=== PATIENT | male | born 2000 | race Caucasian/White ===

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

== ENCOUNTER 2019-03-05 02:48 | Inpatient (IN) | payer OTHER ==
[~2019-03-05] VITALS: Ht 175.3 cm; Wt 69.1 kg
[2019-03-05 03:20] LABS: Hematocrit 53.1 % (37.0-53.0); Hemoglobin 17.9 g/dL (13.5-17.5); Mean Corpuscular HGB 31.6 pg (26.0-34.0); Mean Corpuscular HGB Conc 33.7 g/dL (31.5-36.5); Mean Corpuscular Volume 94 fL (80-100); Mean Platelet Volume 9.5 fL (9.1-12.4); Platelet Count 441 K/mm3 (150-400); RDW Coefficient Variation 12.1 % (11.7-14.2); RDW Standard Deviation 41.9 fL (35.1-46.3); Red Blood Cell Count 5.66 M/mm3 (4.30-5.90); White Blood Cell Count 25.29 K/mm3 (4.00-11.30)
[2019-03-05 03:35] LABS: Calcium, Ionized (POC) 1.26 mmol/L (1.10-1.46); Chloride (POC) 103 mmol/L (98-108); Creatinine (POC) 1.1 mg/dL (0.8-1.3); Glucose (ISTAT POC) 555 mg/dL (70-99); Hemoglobin (POC) 19.4 g/dL (13.5-17.5); Sodium (POC) 129 mmol/L (135-148); Total CO2 (POC) 9 mmol/L (21-32)
[2019-03-05 03:42] LABS: BAND PERCENT MAN 10 % (0-8); BASOPHILS PERCENT MAN 0 % (0-2); EOSINOPHILS PERCENT MAN 0 % (0-6); LYMPHOCYTES ABSOLUTE MAN 1.77 K/mm3 (0.84-5.20); LYMPHOCYTES PERCENT MAN 7 % (21-46); MONOCYTES ABSOLUTE MAN 2.02 K/mm3 (0.16-1.47); MONOCYTES PERCENT MAN 8 % (4-13); MYELOCYTE ABSOLUTE MAN 0.25 K/mm3 (0.00-0.00); MYELOCYTE PERCENT MAN 1 % (0-0); NEUTROPHILS ABSOLUTE MAN 21.24 K/mm3 (1.96-9.15); SEG NEUTROPHILS PERCENT MAN 74 % (41-73); TOTAL CELLS COUNTED 100
[2019-03-05 03:50] LABS: Alanine Aminotransfer (ALT/SGP 40 U/L (12-78); Albumin, Blood 5.2 g/dL (3.4-5.0); Albumin/Globulin Ratio 1.2 (0.8-1.8); Alk Phos 123 U/L (50-136); Anion Gap 25 mmol/L (6-16); Aspartate Aminotrans (AST/SGOT 12 U/L (12-37); Bilirubin, Total 0.7 mg/dL (0.1-1.0); Blood Urea Nitrogen 22 mg/dL (8-24); Bun/Creatinine Ratio 22.2 (12.0-20.0); CO2, Blood 7 mmol/L (21-32); Calcium, Blood 9.4 mg/dL (8.5-10.1); Chloride, Blood 94 mmol/L (98-108); Creatinine, Blood 0.99 mg/dL (0.60-1.20); Globulin, Blood 4.3 g/dL (2.2-4.0); Glomerular Filtration Rate >60 (60-); Glucose, Blood 544 mg/dL (70-99); Potassium, Blood 4.9 mmol/L (3.5-5.5); Sodium, Blood 126 mmol/L (136-145); Total Protein, Blood 9.5 g/dL (6.4-8.2)
[2019-03-05 04:09] LABS: Beta-hydroxybutyrate 108.2 mg/dL (0.2-2.8)
[2019-03-05 05:07] LABS: BASOPHILS ABSOLUTE AUTO 0.08 K/mm3 (0.00-0.23); BASOPHILS PERCENT AUTO 0 % (0-2); EOSINOPHILS ABSOLUTE AUTO 0.01 K/mm3 (0.00-0.68); EOSINOPHILS PERCENT AUTO 0 % (0-6); Hematocrit 46.1 % (37.0-53.0); Hemoglobin 15.5 g/dL (13.5-17.5); IMMATURE GRAN ABSOLUTE AUTO 0.48 K/mm3 (0.00-0.10); IMMATURE GRAN PERCENT AUTO 2 % (0-1); LYMPHOCYTES ABSOLUTE AUTO 1.41 K/mm3 (0.84-5.20); LYMPHOCYTES PERCENT AUTO 6 % (21-46); MONOCYTES ABSOLUTE AUTO 1.23 K/mm3 (0.16-1.47); MONOCYTES PERCENT AUTO 6 % (4-13); Mean Corpuscular HGB Conc 33.6 g/dL (31.5-36.5); Mean Corpuscular Volume 95 fL (80-100); Mean Platelet Volume 9.3 fL (9.1-12.4); NEUTROPHILS PERCENT AUTO 86 % (41-73); Platelet Count 330 K/mm3 (150-400); RDW Standard Deviation 41.6 fL (35.1-46.3); Red Blood Cell Count 4.85 M/mm3 (4.30-5.90); White Blood Cell Count 22.41 K/mm3 (4.00-11.30)
[2019-03-05 05:20] LABS: Source, Urine Clean Catch
[2019-03-05 05:24] LABS: Bilirubin, Urine Neg (Neg); Blood, Urine 2+ (Neg); Glucose Qualitative, Urine 4+ (Neg); Ketones, Urine 4+ (Neg); Leukocyte Esterase, Urine Neg (Neg); Nitrite, Urine Neg (Neg); Protein, Urine 2+ (Neg); Urobilinogen, Urine NORM (Normal)
[2019-03-05 05:33] LABS: Appearance, Urine Clear (Clear); Color, Urine No Color (P-Yellow)
[2019-03-05 05:36] LABS: Bacteria Not Seen /hpf; Squamous Epithelial Cells Few /hpf (Few); White Blood Cells, Urine Not Seen /hpf (0-5)
[2019-03-05] MEDS ORDERED: BASAGLAR K100 UNIT/1 SC (05:39)
[2019-03-05 05:42] LABS: Anion Gap 19 mmol/L (6-16); Blood Urea Nitrogen 19 mg/dL (8-24); Bun/Creatinine Ratio 24.6 (12.0-20.0); CO2, Blood 8 mmol/L (21-32); Calcium, Blood 7.8 mg/dL (8.5-10.1); Chloride, Blood 104 mmol/L (98-108); Creatinine, Blood 0.77 mg/dL (0.60-1.20); Glomerular Filtration Rate >60 (60-); Glucose, Blood 422 mg/dL (70-99); Potassium, Blood 5.4 mmol/L (3.5-5.5); Sodium, Blood 131 mmol/L (136-145)
[2019-03-05] MEDS ORDERED: BASAGLAR (05:52)
--- NOTE | 2019-03-05 06:23 | NUR ---
ADMIT: PT ADMITTED TO ICU 15 VIA GURNEY WITH 2 RN'S AT BEDSIDE AND HEART MONITOR ATTACHED. PT A&OX3. DENIES ANY PAIN. STATES HAVING N/V EARLIER, BUT NOTHING NOW. LS CLEAR T/O WITH BIOX 98% ON RA. HEART SOUNDS S1 AND S2 AUSCULATED WITH MONITOR SHOWING ST WITH HR 105. SKIN, PINK, WARM AND DRY. 20G IV TO LAC WITH NS @ 200CC/HR AND INSULIN @ 5UNITS/HR. BLOOD SUGAR 286, INSULIN TURNED DOWN TO 2 UNITS/HR. ABD R/S WITH BT X4.
--- NOTE | 2019-03-05 08:00 | NUR ---
Recieved report from Ninfa BOONE. Patient is independent in room. He is on Ra and sats 98%. He has bilateral 20ga IV in AC's with both dressings intact and sites WNL's. The right AC is infusing Insulin at 2 Units/hr with CBG's in the low 200's and NS at 200ml/hr x1 bag. He is frustrated he has to saty in hospital and have discussed consequences for not be compliant with monitoring CBG's in daily life . He really wants to eat and have explained why he does not get to eat. Mother at bedside.
[2019-03-05 09:46] LABS: Anion Gap 12 mmol/L (6-16); Blood Urea Nitrogen 12 mg/dL (8-24); Bun/Creatinine Ratio 21.2 (12.0-20.0); CO2, Blood 12 mmol/L (21-32); Calcium, Blood 7.8 mg/dL (8.5-10.1); Chloride, Blood 109 mmol/L (98-108); Creatinine, Blood 0.57 mg/dL (0.60-1.20); Glomerular Filtration Rate >60 (60-); Glucose, Blood 226 mg/dL (70-99); Magnesium, Blood 1.8 mg/dL (1.6-2.4); Phosphorus, Blood 1.9 mg/dL (2.5-4.9); Potassium, Blood 4.2 mmol/L (3.5-5.5); Sodium, Blood 133 mmol/L (136-145)
[2019-03-05 10:14] LABS: Beta-hydroxybutyrate 55.3 mg/dL (0.2-2.8)
--- NOTE | 2019-03-05 10:32 | NUR ---
Patient still c/o appetite and gap is closed and CBG's remain in the low 200's. Have call out to Dr Ascencio for new orders.
--- NOTE | 2019-03-05 11:57 | NUR ---
Patient has been sleeping and states very tired. CBG 196 and they remain low. Started D5 1/2 NS at 125ml/hr and started K Phos. and 25Meq Bicarb and wasted other half. Labs re-drawn at 1300 for recheck. VSS
[2019-03-05 13:52] LABS: Anion Gap 13 mmol/L (6-16); Blood Urea Nitrogen 9 mg/dL (8-24); Bun/Creatinine Ratio 19.4 (12.0-20.0); CO2, Blood 17 mmol/L (21-32); Calcium, Blood 8.3 mg/dL (8.5-10.1); Chloride, Blood 105 mmol/L (98-108); Creatinine, Blood 0.47 mg/dL (0.60-1.20); Glomerular Filtration Rate >60 (60-); Glucose, Blood 233 mg/dL (70-99); Potassium, Blood 3.6 mmol/L (3.5-5.5); Sodium, Blood 135 mmol/L (136-145)
--- NOTE | 2019-03-05 14:37 | NUR ---
Patient sitting up in bed playing Holographic Projection for [employer] games with friend, no significant changes. Awaiting for patient to transition back to home insulin.
[2019-03-05] MEDS ORDERED: Humalog100 UNIT/3 SC (14:44)
--- NOTE | 2019-03-05 17:30 | NUR ---
Patient up to shower and independent in room. He is Med no tele and is awaiting med room. He has started Lantus with SS coverage for AC/HS. Most likely going home in am. Have consistently educated him throughout the day on better management of his Diabetes, and feel he will do better. He see a diabetic specialist, but forhets sometiimes the importance of monitoring until he feels bad. VSS. He has NS at 125ml/hr and RA and sats upper 90%'s.
--- NOTE | 2019-03-05 20:00 | NUR ---
ASSUMED CARE OF PT AT 1915. REPORT RECEIVED. PT PRESENTS IN BED. ALERT AND ORIENTED. PLEASANT AND COOPERATIVE WITH CARE AND ASSESSMENT. PT DENIES COMPLAINTS AT THIS TIME OTHER THAN BEING BORED BEING IN THE HOSPITAL. WILL REVIEW CHART AND PLAN OF CARE FOR THIS PT.
--- NOTE | 2019-03-05 21:23 | NUR ---
DIABETIC EDUCATION DONE WITH THIS PT. ALLOWED PT TO ASK QUESTIONS. 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 PT'S FRIENDS COME TO ROOM FOR VISIT AND HAVE LEFT. HAVE COVERED BLOOD GLUCOSE OF 162 THIS EVENING. SUGGESTED TO PT THAT IF HE FEELS HIS GLUCOSE IS OFF THIS NIGHT THAT HE CAN REQUEST TO HAVE HIS BLOOD SUGAR CHECKED AT ANY TIME. WILL CONTINUE TO MONITOR PT.
--- NOTE | 2019-03-06 03:12 | NUR ---
PT HAS BEEN RESTING IN ROOM. HAS FEMALE GUEST THAT IS SPENDING THE NIGHT WITH PT IN ROOM. PT HAS NO COMPLAINTS AT THIS TIME. INDEPENDENT IN ROOM. VSS. WILL CONTINUE TO MONITOR PT.
[2019-03-06 03:29] LABS: BASOPHILS ABSOLUTE AUTO 0.01 K/mm3 (0.00-0.23); BASOPHILS PERCENT AUTO 0 % (0-2); EOSINOPHILS ABSOLUTE AUTO 0.03 K/mm3 (0.00-0.68); EOSINOPHILS PERCENT AUTO 0 % (0-6); Hematocrit 38.2 % (37.0-53.0); IMMATURE GRAN ABSOLUTE AUTO 0.04 K/mm3 (0.00-0.10); IMMATURE GRAN PERCENT AUTO 1 % (0-1); LYMPHOCYTES ABSOLUTE AUTO 2.46 K/mm3 (0.84-5.20); LYMPHOCYTES PERCENT AUTO 30 % (21-46); MONOCYTES ABSOLUTE AUTO 0.85 K/mm3 (0.16-1.47); MONOCYTES PERCENT AUTO 10 % (4-13); Mean Corpuscular HGB 32.3 pg (26.0-34.0); Mean Corpuscular HGB Conc 36.6 g/dL (31.5-36.5); Mean Platelet Volume 9.2 fL (9.1-12.4); NEUTROPHILS ABSOLUTE AUTO 4.81 K/mm3 (1.96-9.15); NEUTROPHILS PERCENT AUTO 59 % (41-73); Platelet Count 275 K/mm3 (150-400); RDW Coefficient Variation 12.2 % (11.7-14.2); RDW Standard Deviation 39.6 fL (35.1-46.3); Red Blood Cell Count 4.33 M/mm3 (4.30-5.90)
[2019-03-06 03:30] LABS: Mean Corpuscular Volume 88 fL (80-100)
[2019-03-06 03:52] LABS: Albumin, Blood 3.3 g/dL (3.4-5.0); Anion Gap 10 mmol/L (6-16); Blood Urea Nitrogen 10 mg/dL (8-24); Bun/Creatinine Ratio 20.5 (12.0-20.0); CO2, Blood 19 mmol/L (21-32); Calcium, Blood 8.1 mg/dL (8.5-10.1); Chloride, Blood 109 mmol/L (98-108); Creatinine, Blood 0.49 mg/dL (0.60-1.20); Glomerular Filtration Rate >60 (60-); Glucose, Blood 243 mg/dL (70-99); Phosphorus, Blood 1.3 mg/dL (2.5-4.9); Potassium, Blood 3.2 mmol/L (3.5-5.5); Sodium, Blood 138 mmol/L (136-145)
--- NOTE | 2019-03-06 06:38 | NUR ---
PT HAS BEEN ABLE TO REST SOME THIS NIGHT. HIS FEMALE GUEST LEFT DURING NIGHT, AND PT WAS ABLE TO SLEEP. PT VOIDS Q.S. DENIES PAIN OR NAUSEA. CALL MADE TO DR GRIFFIN CONCERNING PT'S PHOS AND POTASSIUM LEVELS BEING LOW. ORDER RECEIVED. DISCUSSED WITH PT THAT HE IS RECEIVING ELECTROLYTE REPLACEMENT. PT VOICES UNDERSTANDING. WILL CONTINUE TO MONITOR PT, AND WILL REPORT OFF TO ONCOMING RN.
--- NOTE | 2019-03-06 07:40 | NUR ---
ASSUMED CARE: PT RESTING IN BED AT THIS TIME. POTASSIUM IV RUNNING AT THIS TIME. NO ACUTE NEEDS OR CONCERNS.
[2019-03-06] MEDS ORDERED: K-Phos Origina500 MG PO (10:30)
--- NOTE | 2019-03-06 11:17 | NUR ---
PT'S IV'S DC'D WNL. INFORMATION GIVEN TO PT ABOUT DISCHARGE INSTRUCTIONS AND MEDICATIONS. INSTRUCTED PT TO CALL PCP FOR APPOINTMENT AND TO DISCUSS CONSULT FOR DR GARRIDO WITH PCP DUE TO DR GARRIDO'S OFFICE NOT TAKING CONSULTS FROM HOSPITAL. DENIED FURTHER QUESTIONS OR CONCERNS. AMBULATORY UPON DISCHARGE
== END 2019-03-06 11:08 | disposition home or self-care (01) | DRG 638 ==
LOC: ER 02:48 → ERHOLD 04:14 → ICUW 05:28
PROVIDERS: Emergency Medicine; Internal Medicine; ADMIT Hospitalist
DX: E10.10 Type 1 diabetes mellitus with ketoacidosis without coma (principal); E87.1 Hypo-osmolality and hyponatremia; E86.0 Dehydration; E83.39 Other disorders of phosphorus metabolism
CPT/HCPCS: 36415; 80047; 80048; 80053; 80069; 81001; 82010; 82947; 83690; 83735; 84100; 85014; 85025; 96360; 96361; 99285-25; C9113; J1815; J7030; J7042; J7060

== ENCOUNTER 2019-05-13 07:36 | Inpatient (IN) | payer OTHER ==
[~2019-05-13] VITALS: Ht 175.3 cm; Wt 63.3 kg
[~2019-05-13 07:36] MED LIST: BASAGLAR; BASAGLAR K100 UNIT/1 SC; Humalog100 UNIT/3 SC; K-Phos Origina500 MG PO
[2019-05-13] MEDS ORDERED: BASAGLAR K100 UNIT/2 SC (08:00)
[2019-05-13 08:19] LABS: Base Excess Venous -26.2 mmol/L; Bicarbonate Venous 8.4 mmol/L (24.0-30.0); PCO2 Venous 21.8 mmHg (38-42); PO2 Venous 59.2 mmHg (38-42); pH Blood Venous 6.99 (7.34-7.37)
[2019-05-13 08:24] LABS: BASOPHILS PERCENT AUTO 1 % (0-2); EOSINOPHILS ABSOLUTE AUTO 0.03 K/mm3 (0.00-0.68); EOSINOPHILS PERCENT AUTO 0 % (0-6); Hematocrit 48.5 % (37.0-53.0); Hemoglobin 16.6 g/dL (13.5-17.5); IMMATURE GRAN ABSOLUTE AUTO 0.33 K/mm3 (0.00-0.10); IMMATURE GRAN PERCENT AUTO 3 % (0-1); LYMPHOCYTES ABSOLUTE AUTO 2.03 K/mm3 (0.84-5.20); LYMPHOCYTES PERCENT AUTO 19 % (21-46); MONOCYTES ABSOLUTE AUTO 0.91 K/mm3 (0.16-1.47); MONOCYTES PERCENT AUTO 9 % (4-13); Mean Corpuscular HGB 32.7 pg (26.0-34.0); Mean Corpuscular HGB Conc 34.2 g/dL (31.5-36.5); Mean Corpuscular Volume 96 fL (80-100); NEUTROPHILS PERCENT AUTO 68 % (41-73); Platelet Count 346 K/mm3 (150-400); RDW Coefficient Variation 13.3 % (11.7-14.2); RDW Standard Deviation 46.9 fL (35.1-46.3); Red Blood Cell Count 5.08 M/mm3 (4.30-5.90)
[2019-05-13 08:52] LABS: Alanine Aminotransfer (ALT/SGP 21 U/L (12-78); Albumin, Blood 4.2 g/dL (3.4-5.0); Albumin/Globulin Ratio 1.2 (0.8-1.8); Alk Phos 104 U/L (50-136); Aspartate Aminotrans (AST/SGOT 12 U/L (12-37); Bilirubin, Total 0.5 mg/dL (0.1-1.0); Blood Urea Nitrogen 8 mg/dL (8-24); Bun/Creatinine Ratio 11.3 (12.0-20.0); Calcium, Blood 8.1 mg/dL (8.5-10.1); Chloride, Blood 104 mmol/L (98-108); Creatinine, Blood 0.71 mg/dL (0.60-1.20); Globulin, Blood 3.6 g/dL (2.2-4.0); Glomerular Filtration Rate >60 (60-); Glucose, Blood 313 mg/dL (70-99); Potassium, Blood 3.4 mmol/L (3.5-5.5); Sodium, Blood 135 mmol/L (136-145); Total Protein, Blood 7.8 g/dL (6.4-8.2)
[2019-05-13 08:53] LABS: Anion Gap 24 mmol/L (6-16); CO2, Blood 7 mmol/L (21-32)
[2019-05-13 09:01] LABS: Beta-hydroxybutyrate 99.4 mg/dL (0.2-2.8)
[2019-05-13 09:17] LABS: Source, Urine Clean Catch
[2019-05-13 09:25] LABS: Bilirubin, Urine Neg (Neg); Blood, Urine 2+ (Neg); Glucose Qualitative, Urine 4+ (Neg); Ketones, Urine 4+ (Neg); Leukocyte Esterase, Urine 3+ (Neg); Nitrite, Urine Neg (Neg); Protein, Urine 3+ (Neg); Specific Gravity, Urine 1.025 (1.003-1.022); Urobilinogen, Urine NORM (Normal)
[2019-05-13 09:30] LABS: Appearance, Urine Cloudy (Clear); Color, Urine Yellow (P-Yellow)
[2019-05-13 09:32] LABS: White Blood Cells, Urine 25-50 /hpf (0-5)
[2019-05-13 09:33] LABS: Squamous Epithelial Cells Mod /hpf (Few)
[2019-05-13 09:34] LABS: Bacteria Many /hpf
[2019-05-13 09:36] LABS: Yeast/Fungi Urine Mod /hpf
[2019-05-13 09:40] LABS: Magnesium, Blood 1.8 mg/dL (1.6-2.4); Phosphorus, Blood 2.2 mg/dL (2.5-4.9)
[2019-05-13 09:49] LABS: Osmolality, Serum 309 mos/KG (275-300)
[2019-05-13 12:24] LABS: Blood Urea Nitrogen 7 mg/dL (8-24); Bun/Creatinine Ratio 12.5 (12.0-20.0); Calcium, Blood 7.8 mg/dL (8.5-10.1); Chloride, Blood 107 mmol/L (98-108); Creatinine, Blood 0.56 mg/dL (0.60-1.20); Glomerular Filtration Rate >60 (60-); Glucose, Blood 292 mg/dL (70-99); Potassium, Blood 3.9 mmol/L (3.5-5.5); Sodium, Blood 136 mmol/L (136-145)
[2019-05-13 12:25] LABS: Anion Gap 22 mmol/L (6-16); CO2, Blood 7 mmol/L (21-32)
--- NOTE | 2019-05-13 14:00 | NUR ---
UPDATE PT CB; PLACED CALL TO BREE PRECIADO. PT IS NOW ON CLEAR LIQUIDS, RECEIVING D5-1/2NS; AND THE INSULIN DOSAGE CHANGED TO 0.1UNITS/KG/HR. PT IS ALERT AND ORIENTED X 4, DENIES PAIN AND DISCOMFORT. PT IS OCCASSIONALLY SOB WITH EXERTION. HE IS VOIDING ADEQUATELY, AND INDEPENDENTLY.
[2019-05-13 16:13] LABS: Anion Gap 20 mmol/L (6-16); Blood Urea Nitrogen 6 mg/dL (8-24); Bun/Creatinine Ratio 9.7 (12.0-20.0); CO2, Blood 8 mmol/L (21-32); Calcium, Blood 8.3 mg/dL (8.5-10.1); Chloride, Blood 109 mmol/L (98-108); Creatinine, Blood 0.62 mg/dL (0.60-1.20); Glomerular Filtration Rate >60 (60-); Glucose, Blood 215 mg/dL (70-99); Potassium, Blood 3.5 mmol/L (3.5-5.5); Sodium, Blood 137 mmol/L (136-145)
[2019-05-13 18:42] LABS: U Amphetamine Screen Not Detected; U Barbituate Screen Not Detected; U Benzodiazapine Screen Not Detected; U Buprenorphine Screen Not Detected; U Cannabinoids Screen DETECTED; U Cocaine Screen Not Detected; U Methadone Screen Not Detected; U Methamphetamine Screen Not Detected; U Opiates Screen Not Detected; U Oxycodone Screen Not Detected; U Phencyclidine Screen Not Detected; U Propoxyphene Screen Not Detected
--- NOTE | 2019-05-13 19:28 | NUR ---
SHIFT SUMMARY PT IS ALERT AND ORIENTED X 4, AND HAS DENIED PAIN/DISCOMFORT ALL DAY UNTILL RECENTLY HE COMPLAINED OF HEARTBURN THAT WAS RELIEVED AFTER MAALOX. HE HAS HAD NO MAJOR EVENTS ALL DAY, HIS LABS ARE TRENDING IN THE RIGHT DIRECTIONS (CO2 IS TRENDING VERY SLOWLY (7->7->8). HE HAS D5-1/2NS INFUSING AT 150 ML/HR, AND INSULIN AT 8 UNITS/KG/HR. HE IS IN SINUS TACH, HR 95-110. BP HAS BEEN STABLE. HE IS SAT'ING HIGH 90'S ON ROOM AIR, AND ONLY COMPLAINS OF SOB WITH EXERTION (LIKE STANDING UP TO URINATE). HE IS VOIDING ADEQUATELY. HE HAS A YEAST INFECTION IN THE FORESKIN OF HIS PENIS. NO MAJOR SKIN ISSUES. NO BM TODAY. PT STATES FEELING BETTER (LESS SOB, HEARTBURN, NAUSEA) SINCE COMING TO ICU. BED IS LOW AND LOCKED. CALL LIGHT WITHIN REACH.
--- NOTE | 2019-05-13 21:00 | NUR ---
PT WATCHING TV W GIRLFRIEND, GENERALLY DENIES DISCOMFORT, BUT HAS ANXIETY W BEING HOSPITALIZED AND "ALL THE STUFF". INSULIN GTT WAS INCREASED TO 9UNITS PER HOUR & HAS D5 1/2NS AT 150/HR. DENIES NAUSEA AND STATES HE IS STARVING. AWAIT LAB RESULTS.
[2019-05-13 21:03] LABS: Anion Gap 13 mmol/L (6-16); Blood Urea Nitrogen 6 mg/dL (8-24); Bun/Creatinine Ratio 12.6 (12.0-20.0); CO2, Blood 15 mmol/L (21-32); Calcium, Blood 8.6 mg/dL (8.5-10.1); Chloride, Blood 108 mmol/L (98-108); Creatinine, Blood 0.48 mg/dL (0.60-1.20); Glomerular Filtration Rate >60 (60-); Glucose, Blood 203 mg/dL (70-99); Potassium, Blood 2.9 mmol/L (3.5-5.5); Sodium, Blood 136 mmol/L (136-145)
--- NOTE | 2019-05-13 22:15 | NUR ---
ORDERS REC'D FOR KCL- PO & IV. PT HAS TOLERATED YOGURT X2 & TURKEY SANDWICH WO NAUSEA. CONT ON INSULIN GTT AT 9 UNITS/HR. LANTUS 10 UNITS GIVEN. WILL CONT TO MONITOR. PT GIRLFRIEND AT BEDSIDE.
--- NOTE | 2019-05-14 | NUR ---
PT TOOK PO POTASSIUM RELUCTANTLY, AND TOLERATING IV POTASSIUM RUNNING CONCURRENT W DEXTROSE MAINT IV. WILL CONT INSULIN GTT FOR ANOTHER HOUR & RECHECK. PT AGAIN ATE SANDWICH & CHICKEN BROTH PER HIS REQUEST.
[2019-05-14 02:10] LABS: Hematocrit 43.9 % (37.0-53.0); Hemoglobin 15.6 g/dL (13.5-17.5); Mean Corpuscular HGB 32.6 pg (26.0-34.0); Mean Corpuscular HGB Conc 35.5 g/dL (31.5-36.5); Mean Corpuscular Volume 92 fL (80-100); Mean Platelet Volume 8.8 fL (9.1-12.4); Platelet Count 272 K/mm3 (150-400); RDW Coefficient Variation 13.1 % (11.7-14.2); RDW Standard Deviation 44.3 fL (35.1-46.3); Red Blood Cell Count 4.79 M/mm3 (4.30-5.90); White Blood Cell Count 8.27 K/mm3 (4.00-11.30)
[2019-05-14 02:22] LABS: Anion Gap 10 mmol/L (6-16); Blood Urea Nitrogen 7 mg/dL (8-24); Bun/Creatinine Ratio 11.4 (12.0-20.0); CO2, Blood 20 mmol/L (21-32); Calcium, Blood 8.9 mg/dL (8.5-10.1); Chloride, Blood 110 mmol/L (98-108); Creatinine, Blood 0.62 mg/dL (0.60-1.20); Glomerular Filtration Rate >60 (60-); Glucose, Blood 85 mg/dL (70-99); Potassium, Blood 3.3 mmol/L (3.5-5.5); Sodium, Blood 140 mmol/L (136-145)
--- NOTE | 2019-05-14 03:30 | NUR ---
INSULIN HAS BEEN OFF SINCE 139. MAINT IV CHANGED TO NS. PT SLEEPING AT THIS TIME. VSS. HAS VOIDED 1000 CC SL CONC URINE. PT APPEARS IMPROVED, MORE ALERT, LESS FLUSHED, GENERALLY SEEMS TO FEEL BETTER. WILL CONT TO MONITOR.
--- NOTE | 2019-05-14 06:30 | NUR ---
PT SLEEPING AT THIS TIME. NEXT LAB DRAW SCHED AT 0800. WILL REPORT TO DAYSHIFT.
--- NOTE | 2019-05-14 08:38 | NUR ---
PT AWAKE IN BED, STATES HE FEELS MUCH BETTER THAN YESTERDAY. DENIES C/O PAIN, DENIES ABD PAIN, NAUSEA. PT ATE EARLY THIS AM AND TOLERATED WELL. NS AT 75CC/HR. DIABETIC EDUCATION STARTED. PT SOMEWHAT FLUSHED; TEMP 97.6. PT COVERED WITH SLIDING SCALE FOR BS 256. PT STATES HE WOULD LIKE TO GO HOME TODAY.
[2019-05-14 08:40] LABS: Anion Gap 14 mmol/L (6-16); Blood Urea Nitrogen 7 mg/dL (8-24); Bun/Creatinine Ratio 11.4 (12.0-20.0); CO2, Blood 17 mmol/L (21-32); Calcium, Blood 8.5 mg/dL (8.5-10.1); Chloride, Blood 106 mmol/L (98-108); Creatinine, Blood 0.61 mg/dL (0.60-1.20); Glomerular Filtration Rate >60 (60-); Glucose, Blood 256 mg/dL (70-99); Potassium, Blood 3.7 mmol/L (3.5-5.5); Sodium, Blood 137 mmol/L (136-145)
--- NOTE | 2019-05-14 10:23 | NUR ---
PT RESTLESS, VOCALIZES THAT HE WANTS TO GO HOME. GOOD APPETITE. ELECTRONIC ENGRAVER AT [facility] FOR EDUCATION.
--- NOTE | 2019-05-14 10:58 | NUR ---
DR AMARAL IN TO SEE PT. NS INCREASED TO 200CC/HR. LABS TO BE REPEATED AT 1500; IF IMPROVED, POSSIBLE DC HOME. PT NOW MED STATUS NO TELE. LEADS REMOVED; PT HAPPY ABOUT THIS.
--- NOTE | 2019-05-14 12:18 | NUR ---
REPORT GIVEN TO MEDICAL FLOOR RN.
--- NOTE | 2019-05-14 12:44 | NUR ---
PT ARRIVED TO ROOM 334 VIA W/C FROM ICU. PT A/OX4, INDEP INTO BED. PT DENIES ANY COMPLAINTS. LS CLEAR, ON RA. NS AT 200ML/HR RUNNING. PT ORIENTED TO ROOM AND CALL SYSTEM, CALL LIGHT IN REACH.
[2019-05-14 15:28] LABS: Anion Gap 10 mmol/L (6-16); Blood Urea Nitrogen 8 mg/dL (8-24); Bun/Creatinine Ratio 12.4 (12.0-20.0); CO2, Blood 22 mmol/L (21-32); Calcium, Blood 8.3 mg/dL (8.5-10.1); Chloride, Blood 105 mmol/L (98-108); Creatinine, Blood 0.65 mg/dL (0.60-1.20); Glomerular Filtration Rate >60 (60-); Glucose, Blood 301 mg/dL (70-99); Potassium, Blood 3.4 mmol/L (3.5-5.5); Sodium, Blood 137 mmol/L (136-145)
[2019-05-14] MEDS ORDERED: ITCH RELIEF15 GM TOP (16:00)
--- NOTE | 2019-05-14 16:23 | NUR ---
DISCHARGE INSTRUCTIONS REVIEWED WITH PT. IV X2 DC'D INTACT. F/U MADE WITH PCP. VERIFIED WITH PT THAT HE HAS HUMALOG AND LANTUS AND NEEDLES AT HOME. PT REPORTS HIS TEST STRIPS DO NOT FIT HIS GLUCOMETER. CALLED [facility] WHERE HE GETS HIS SUPPLIES AND THEY REPORT THEY ARE OPEN UNTIL 5:30 AND PT CAN BRING IN TEST STIPS AND MACHINE AND THEY WILL GET HIM THE CORRECT TEST STRIPS. 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. PT DC'D HOME AT 1625.
== END 2019-05-14 16:30 | disposition home or self-care (01) | DRG 638 ==
LOC: ER 07:36 → ICUW 09:49 → ICUE 11:20 → MEDS 05-14 12:35
PROVIDERS: Emergency Medicine; Nurse Practitioner Acute Care; ADMIT Family Medicine
DX: E10.10 Type 1 diabetes mellitus with ketoacidosis without coma (principal); B37.49 Other urogenital candidiasis; E87.6 Hypokalemia; Z79.4 Long term (current) use of insulin
CPT/HCPCS: 36415; 71046; 80048; 80053; 81001; 82010; 82803; 82947; 83605; 83690; 83735; 83930; 84100; 85025; 85027; 87086; 93005; 93010; 96361; 96365; 96366; 96372-59; 96375; 99285-25; C9113; G0480; J0696; J1650; J1815; J2405; J3480; J7030; J7042

== ENCOUNTER 2019-06-22 12:39 | Observation (INO) | payer OTHER ==
[~2019-06-22] VITALS: Ht 170.2 cm; Wt 67.0 kg
[~2019-06-22 12:39] MED LIST changes: +BASAGLAR K100 UNIT/2 SC; +ITCH RELIEF15 GM TOP
[2019-06-22 13:06] LABS: BASOPHILS ABSOLUTE AUTO 0.08 K/mm3 (0.00-0.23); BASOPHILS PERCENT AUTO 0 % (0-2); EOSINOPHILS PERCENT AUTO 0 % (0-6); Hematocrit 51.7 % (37.0-53.0); Hemoglobin 18.3 g/dL (13.5-17.5); IMMATURE GRAN ABSOLUTE AUTO 0.19 K/mm3 (0.00-0.10); IMMATURE GRAN PERCENT AUTO 1 % (0-1); LYMPHOCYTES ABSOLUTE AUTO 2.02 K/mm3 (0.84-5.20); LYMPHOCYTES PERCENT AUTO 10 % (21-46); MONOCYTES PERCENT AUTO 2 % (4-13); Mean Corpuscular HGB 32.4 pg (26.0-34.0); Mean Corpuscular HGB Conc 35.4 g/dL (31.5-36.5); Mean Corpuscular Volume 92 fL (80-100); Mean Platelet Volume 9.4 fL (9.1-12.4); NEUTROPHILS ABSOLUTE AUTO 17.91 K/mm3 (1.96-9.15); NEUTROPHILS PERCENT AUTO 87 % (41-73); Platelet Count 422 K/mm3 (150-400); RDW Coefficient Variation 11.7 % (11.7-14.2); RDW Standard Deviation 39.3 fL (35.1-46.3); Red Blood Cell Count 5.65 M/mm3 (4.30-5.90)
[2019-06-22 13:17] LABS: Base Excess Venous -11.3 mmol/L; Bicarbonate Venous 15.4 mmol/L (24.0-30.0); PCO2 Venous 41.9 mmHg (38-42); PO2 Venous 36.7 mmHg (38-42)
[2019-06-22 13:24] LABS: Alanine Aminotransfer (ALT/SGP 35 U/L (12-78); Albumin, Blood 4.7 g/dL (3.4-5.0); Albumin/Globulin Ratio 1.1 (0.8-1.8); Alk Phos 138 U/L (50-136); Anion Gap 21 mmol/L (6-16); Aspartate Aminotrans (AST/SGOT 17 U/L (12-37); Bilirubin, Total 0.6 mg/dL (0.1-1.0); Blood Urea Nitrogen 21 mg/dL (8-24); Bun/Creatinine Ratio 28.8 (12.0-20.0); CO2, Blood 17 mmol/L (21-32); Calcium, Blood 9.6 mg/dL (8.5-10.1); Chloride, Blood 95 mmol/L (98-108); Creatinine, Blood 0.73 mg/dL (0.60-1.20); Globulin, Blood 4.2 g/dL (2.2-4.0); Glomerular Filtration Rate >60 (60-); Glucose, Blood 454 mg/dL (70-99); Potassium, Blood 3.9 mmol/L (3.5-5.5); Sodium, Blood 133 mmol/L (136-145); Total Protein, Blood 8.9 g/dL (6.4-8.2)
[2019-06-22 14:34] LABS: Source, Urine Clean Catch
[2019-06-22 14:44] LABS: Bilirubin, Urine Neg (Neg); Blood, Urine Neg (Neg); Glucose Qualitative, Urine 4+ (Neg); Ketones, Urine 4+ (Neg); Leukocyte Esterase, Urine Neg (Neg); Nitrite, Urine Neg (Neg); Protein, Urine 2+ (Neg); Specific Gravity, Urine 1.025 (1.003-1.022); Urobilinogen, Urine NORM (Normal)
[2019-06-22 14:45] LABS: Appearance, Urine Clear (Clear); Color, Urine Yellow (P-Yellow)
[2019-06-22 14:50] LABS: Bacteria Few /hpf; Red Blood Cells, Urine Not Seen /hpf (0-2); Squamous Epithelial Cells Rare /hpf (Few); White Blood Cells, Urine 0-2 /hpf (0-5)
--- NOTE | 2019-06-22 15:24 | NUR ---
ARRIVAL TO ICU PT ARRIVES TO ICU FROM ED AT 1440. HE IS AWAKE, ALERT/ORIENTED X 3. DENIES PAIN. DENIES NAUSEA. VSS. NSR, HR 80S AND BP WNL. NS MIV INFUSING AT 150 ML/HR PER ORDER. INSULIN GTT INFUSING AT 2 UNITS/HR. TOLERATING PO. WILL CONTINUE TO MONITOR.
[2019-06-22 15:37] LABS: Influenza A Negative (NEGATIVE); Influenza B Negative (NEGATIVE)
[2019-06-22 16:06] LABS: U Amphetamine Screen Not Detected; U Barbituate Screen Not Detected; U Benzodiazapine Screen Not Detected; U Buprenorphine Screen Not Detected; U Cannabinoids Screen DETECTED; U Cocaine Screen Not Detected; U Methadone Screen Not Detected; U Methamphetamine Screen Not Detected; U Opiates Screen Not Detected; U Oxycodone Screen Not Detected; U Phencyclidine Screen Not Detected; U Propoxyphene Screen Not Detected
--- NOTE | 2019-06-22 16:51 | NUR ---
REASSESSMENT PT SITTING UP IN BED WATCHING TV. DENIES PAIN AND NAUSEA. CALM AND COOPERATIVE. VSS. NSR, HR 80S AND BP WNL. MUNIR AWARE OF BLOOD SUGAR TRENDS AND ORDER GIVEN TO START PT ON D5 1/2 NS MIV. NS DISCONTINUED AND D5 1/2 NS INFUSING AT 150 ML/HR. WILL CONTINUE TO MONITOR.
[2019-06-22 17:45] LABS: Anion Gap 17 mmol/L (6-16); Blood Urea Nitrogen 15 mg/dL (8-24); Bun/Creatinine Ratio 32.5 (12.0-20.0); CO2, Blood 13 mmol/L (21-32); Calcium, Blood 7.9 mg/dL (8.5-10.1); Chloride, Blood 106 mmol/L (98-108); Creatinine, Blood 0.46 mg/dL (0.60-1.20); Glomerular Filtration Rate >60 (60-); Glucose, Blood 223 mg/dL (70-99); Potassium, Blood 4.3 mmol/L (3.5-5.5); Sodium, Blood 136 mmol/L (136-145)
--- NOTE | 2019-06-22 18:35 | NUR ---
SHIFT SUMMARY PT ADMITTED AT 1440 TODAY. INSULIN GTT REMAINS INFUSING WITH D5 1/2 NS. REPEAT LABS COMPLETED; GAP REMAINS HIGH. PT A/O X 3, CALM AND COOPERATIVE. WILL GIVE BEDSIDE, HANDOFF REPORT TO KELLY BOONE.
--- NOTE | 2019-06-22 21:00 | NUR ---
ASSUMPTION OF CARE PT AWAKE IN BED, ALERT AND ORIENTED TO SELF, LOCATION, EVENT, DATE/TIME, FOLLOWING DIRECTIONS. DENIES NAUSEA/SOB/PAIN/DISCOMFORT. LS CLEAR, O2 97% ON RA. MONITOR SHOWS NSR TO SINUS TACH, HR 90'S-110. INSULIN GTT @ 3u/hr. CALL LIGHT WITHIN REACH, PT DENIES ANY NEEDS AT THIS TIME.
[2019-06-22 21:44] LABS: Anion Gap 12 mmol/L (6-16); Blood Urea Nitrogen 12 mg/dL (8-24); Bun/Creatinine Ratio 24.8 (12.0-20.0); CO2, Blood 18 mmol/L (21-32); Calcium, Blood 8.2 mg/dL (8.5-10.1); Chloride, Blood 106 mmol/L (98-108); Creatinine, Blood 0.48 mg/dL (0.60-1.20); Glomerular Filtration Rate >60 (60-); Glucose, Blood 198 mg/dL (70-99); Potassium, Blood 3.7 mmol/L (3.5-5.5); Sodium, Blood 136 mmol/L (136-145)
--- NOTE | 2019-06-23 00:20 | NUR ---
0000 CBG 110, INSULIN GTT DECREASED TO 0.5u/hr, CALL PLACED TO HOSPITALIST BLAKE LAMBERT DENTAL PRACTICE MANAGER, ORDER TO START LONG ACTING INSULIN AND BRIDGE TO DC INSLING GTT AND D5 1/2NS.
--- NOTE | 2019-06-23 01:00 | NUR ---
CBG 121, LONG ACTING INSULIN ADMINISTERED, INSULIN GTT AND D5 1/2NS PLACED ON STANDBY. PT DENIES NAUSEA/DIZZINESS.
[2019-06-23 01:18] LABS: Anion Gap 11 mmol/L (6-16); Blood Urea Nitrogen 11 mg/dL (8-24); Bun/Creatinine Ratio 21.2 (12.0-20.0); CO2, Blood 20 mmol/L (21-32); Calcium, Blood 8.4 mg/dL (8.5-10.1); Chloride, Blood 106 mmol/L (98-108); Creatinine, Blood 0.52 mg/dL (0.60-1.20); Glomerular Filtration Rate >60 (60-); Glucose, Blood 121 mg/dL (70-99); Potassium, Blood 3.2 mmol/L (3.5-5.5); Sodium, Blood 137 mmol/L (136-145)
[2019-06-23 04:25] LABS: BASOPHILS ABSOLUTE AUTO 0.05 K/mm3 (0.00-0.23); BASOPHILS PERCENT AUTO 1 % (0-2); EOSINOPHILS ABSOLUTE AUTO 0.11 K/mm3 (0.00-0.68); EOSINOPHILS PERCENT AUTO 1 % (0-6); Hematocrit 42.5 % (37.0-53.0); IMMATURE GRAN ABSOLUTE AUTO 0.06 K/mm3 (0.00-0.10); IMMATURE GRAN PERCENT AUTO 1 % (0-1); LYMPHOCYTES ABSOLUTE AUTO 3.29 K/mm3 (0.84-5.20); LYMPHOCYTES PERCENT AUTO 31 % (21-46); MONOCYTES ABSOLUTE AUTO 0.69 K/mm3 (0.16-1.47); MONOCYTES PERCENT AUTO 6 % (4-13); Mean Corpuscular HGB 31.9 pg (26.0-34.0); Mean Corpuscular HGB Conc 35.3 g/dL (31.5-36.5); Mean Corpuscular Volume 90 fL (80-100); Mean Platelet Volume 9.2 fL (9.1-12.4); NEUTROPHILS PERCENT AUTO 61 % (41-73); Platelet Count 302 K/mm3 (150-400); RDW Coefficient Variation 11.7 % (11.7-14.2); RDW Standard Deviation 38.8 fL (35.1-46.3)
[2019-06-23 04:40] LABS: Anion Gap 11 mmol/L (6-16); Blood Urea Nitrogen 12 mg/dL (8-24); Bun/Creatinine Ratio 21.2 (12.0-20.0); CO2, Blood 20 mmol/L (21-32); Calcium, Blood 8.5 mg/dL (8.5-10.1); Chloride, Blood 103 mmol/L (98-108); Creatinine, Blood 0.57 mg/dL (0.60-1.20); Glomerular Filtration Rate >60 (60-); Glucose, Blood 283 mg/dL (70-99); Magnesium, Blood 1.7 mg/dL (1.6-2.4); Phosphorus, Blood 3.3 mg/dL (2.5-4.9); Sodium, Blood 134 mmol/L (136-145)
--- NOTE | 2019-06-23 06:22 | NUR ---
SHIFT SUMMARY PT REMAINS ALERT AND ORIENTED T/O SHIFT, DENIED NAUSEA/DIZZINESS PAIN/DISCOMFORT THROUGHOUT SHIFT. LS CLEAR, O2 SATURATIONS ABOVE 95% ON RA. MONITOR SHOWS NSR. ANION GAP CLOSED @ 2100, LONG ACTING SC INSULIN ADMINISTERED @ 0100, INSULIN GTT AND D5 1/2NS DC'D, TOLERTED PO INTAKE, NO URINE OUTPUT THIS SHIFT. 0100 BMP SHOWED LOW POTASSIUM (SEE NURSING NOTE), IMPROVED WITH PO POTASSIUM. PT VERBALIZES DESIRE TO BE DC'D HOME.
--- NOTE | 2019-06-23 07:20 | NUR ---
ASSUMED CARE OF PT AT 0700. REPORT FROM RICARDO BOONE. PT RESTING IN BED. WAKES c VERBAL STIMULI. DENIES COMPLAINTS, N/V OR ABD PAIN. PT A&OX 4. VSS. INSULIN DRIP AND IVF NOT INFUSING AT THIS TIME. CALL PLACED TO DR AMARAL FOR SS COVERAGE AND DIET ORDER. CHEMBG 266. WILL CONTINUE TO MONITOR.
--- NOTE | 2019-06-23 12:24 | NUR ---
DISCHARGE INSTRUCTIONS GIVEN, PT VERBALIZED UNDERSTANDING. APPT c PCP MADE FOR THIS SUNDAY. IV'S REMOVED. PRESSURE DRESSINGS PLACED. ALL BELONGINGS HOME c PT. OTD NAD.
== END 2019-06-23 12:24 | disposition home or self-care (01) ==
LOC: ER 12:39 → ICUW 12:40
PROVIDERS: Nurse Practitioner Acute Care; Physician Assistant; ADMIT Family Medicine
DX: E10.10 Type 1 diabetes mellitus with ketoacidosis without coma (principal); E87.6 Hypokalemia; E87.1 Hypo-osmolality and hyponatremia; D72.829 Elevated white blood cell count, unspecified; R82.5 Elevated urine levels of drugs, medicaments and biological substances; B37.49 Other urogenital candidiasis; Z79.4 Long term (current) use of insulin
CPT/HCPCS: 36415; 71045; 80048; 80053; 81001; 82010; 82803; 82947; 83690; 83735; 84100; 85025; 87804; 96361; 96374; 99285-25; A9270; G0378; J1815; J2405; J7030; J7042

== ENCOUNTER 2019-09-03 16:46 | Observation (INO) | payer OTHER ==
[~2019-09-03] VITALS: Ht 170.2 cm; Wt 64.1 kg
[~2019-09-03 16:46] MED LIST changes: -BASAGLAR K100 UNIT/2 SC; -Humalog100 UNIT/3 SC
[2019-09-03 17:27] LABS: BASOPHILS ABSOLUTE AUTO 0.08 K/mm3 (0.00-0.23); BASOPHILS PERCENT AUTO 1 % (0-2); EOSINOPHILS ABSOLUTE AUTO 0.04 K/mm3 (0.00-0.68); EOSINOPHILS PERCENT AUTO 0 % (0-6); Hemoglobin 18.7 g/dL (13.5-17.5); IMMATURE GRAN ABSOLUTE AUTO 0.16 K/mm3 (0.00-0.10); IMMATURE GRAN PERCENT AUTO 1 % (0-1); LYMPHOCYTES ABSOLUTE AUTO 1.23 K/mm3 (0.84-5.20); LYMPHOCYTES PERCENT AUTO 8 % (21-46); MONOCYTES ABSOLUTE AUTO 0.82 K/mm3 (0.16-1.47); MONOCYTES PERCENT AUTO 6 % (4-13); Mean Corpuscular Volume 94 fL (80-100); NEUTROPHILS ABSOLUTE AUTO 12.54 K/mm3 (1.96-9.15); NEUTROPHILS PERCENT AUTO 84 % (41-73); Platelet Count 428 K/mm3 (150-400); RDW Coefficient Variation 12.9 % (11.7-14.2); RDW Standard Deviation 44.5 fL (35.1-46.3); Red Blood Cell Count 5.85 M/mm3 (4.30-5.90); White Blood Cell Count 14.87 K/mm3 (4.00-11.30)
[2019-09-03 18:17] LABS: Alanine Aminotransfer (ALT/SGP 23 U/L (12-78); Albumin, Blood 5.2 g/dL (3.4-5.0); Albumin/Globulin Ratio 1.2 (0.8-1.8); Alk Phos 137 U/L (50-136); Anion Gap 22 mmol/L (6-16); Aspartate Aminotrans (AST/SGOT 11 U/L (12-37); Beta-hydroxybutyrate 87.6 mg/dL (0.2-2.8); Bilirubin, Total 0.5 mg/dL (0.1-1.0); Blood Urea Nitrogen 10 mg/dL (8-24); Bun/Creatinine Ratio 15.5 (12.0-20.0); CO2, Blood 5 mmol/L (21-32); Calcium, Blood 8.7 mg/dL (8.5-10.1); Chloride, Blood 101 mmol/L (98-108); Creatinine, Blood 0.64 mg/dL (0.60-1.20); Globulin, Blood 4.3 g/dL (2.2-4.0); Glomerular Filtration Rate >60 (60-); Glucose, Blood 383 mg/dL (70-99); Potassium, Blood 3.9 mmol/L (3.5-5.5); Sodium, Blood 128 mmol/L (136-145); Total Protein, Blood 9.5 g/dL (6.4-8.2)
[2019-09-03] MEDS ORDERED: ADMELOG SO100 UNIT/1 SC (19:27)
[2019-09-03] MEDS ORDERED: BASAGLAR K100 UNIT/2 SC (19:27)
[2019-09-03 20:27] LABS: Source, Urine Clean Catch
[2019-09-03 20:30] LABS: Bilirubin, Urine Neg (Neg); Blood, Urine 2+ (Neg); Glucose Qualitative, Urine 4+ (Neg); Ketones, Urine 4+ (Neg); Leukocyte Esterase, Urine Neg (Neg); Nitrite, Urine Neg (Neg); Protein, Urine 3+ (Neg); Specific Gravity, Urine 1.025 (1.003-1.022); Urobilinogen, Urine NORM (Normal)
[2019-09-03 20:32] LABS: Base Excess Venous -27.7 mmol/L; Bicarbonate Venous 7.6 mmol/L (24.0-30.0); PO2 Venous 78.2 mmHg (38-42); pH Blood Venous 6.91 (7.34-7.37)
[2019-09-03 20:39] LABS: Appearance, Urine Hazy (Clear); Bacteria Not Seen /hpf; Color, Urine Pale Yellow (P-Yellow); Squamous Epithelial Cells Few /hpf (Few); White Blood Cells, Urine Rare /hpf (0-5)
[2019-09-03 20:40] LABS: Amorphous Mod (0-Heavy); Granular Casts 25-50 /lpf (0)
[2019-09-03 23:51] LABS: Anion Gap 16 mmol/L (6-16); Blood Urea Nitrogen 8 mg/dL (8-24); Bun/Creatinine Ratio 17.1 (12.0-20.0); CO2, Blood 9 mmol/L (21-32); Calcium, Blood 8.1 mg/dL (8.5-10.1); Chloride, Blood 110 mmol/L (98-108); Creatinine, Blood 0.47 mg/dL (0.60-1.20); Glomerular Filtration Rate >60 (60-); Glucose, Blood 157 mg/dL (70-99); Potassium, Blood 3.5 mmol/L (3.5-5.5); Sodium, Blood 135 mmol/L (136-145)
[2019-09-04 05:41] LABS: BASOPHILS ABSOLUTE AUTO 0.04 K/mm3 (0.00-0.23); BASOPHILS PERCENT AUTO 0 % (0-2); EOSINOPHILS ABSOLUTE AUTO 0.07 K/mm3 (0.00-0.68); EOSINOPHILS PERCENT AUTO 1 % (0-6); Hematocrit 46.3 % (37.0-53.0); Hemoglobin 16.6 g/dL (13.5-17.5); IMMATURE GRAN ABSOLUTE AUTO 0.08 K/mm3 (0.00-0.10); IMMATURE GRAN PERCENT AUTO 1 % (0-1); LYMPHOCYTES PERCENT AUTO 22 % (21-46); MONOCYTES ABSOLUTE AUTO 1.07 K/mm3 (0.16-1.47); MONOCYTES PERCENT AUTO 11 % (4-13); Mean Corpuscular HGB 32.2 pg (26.0-34.0); Mean Corpuscular HGB Conc 35.9 g/dL (31.5-36.5); Mean Platelet Volume 8.9 fL (9.1-12.4); NEUTROPHILS ABSOLUTE AUTO 6.35 K/mm3 (1.96-9.15); NEUTROPHILS PERCENT AUTO 66 % (41-73); Platelet Count 339 K/mm3 (150-400); RDW Coefficient Variation 12.8 % (11.7-14.2); RDW Standard Deviation 42.3 fL (35.1-46.3); Red Blood Cell Count 5.15 M/mm3 (4.30-5.90); White Blood Cell Count 9.71 K/mm3 (4.00-11.30)
[2019-09-04 05:43] LABS: Mean Corpuscular Volume 90 fL (80-100)
[2019-09-04 06:11] LABS: Anion Gap 13 mmol/L (6-16); Blood Urea Nitrogen 10 mg/dL (8-24); Bun/Creatinine Ratio 16.6 (12.0-20.0); CO2, Blood 13 mmol/L (21-32); Calcium, Blood 8.5 mg/dL (8.5-10.1); Chloride, Blood 109 mmol/L (98-108); Glomerular Filtration Rate >60 (60-); Glucose, Blood 146 mg/dL (70-99); Potassium, Blood 3.5 mmol/L (3.5-5.5); Sodium, Blood 135 mmol/L (136-145)
--- NOTE | 2019-09-04 06:20 | NUR ---
SHIFT SUMMARY PT ARRIVED TO ICU 1 AT 2127 VIA ER BED. PT HAS REMAINED ALERT, ORIENTED, AND FOLLOWING COMMANDS APPROPRIATELY. PT DENIES PAIN, DISCOMFORT, OR NAUSEA. PT TOLERATING PO FLUIDS WELL. PT REMAINS ON INSULIN GTT, TITRATED BETWEEN 2-3 UNITS/HR. D5 1/2 NS INFUSING AT 100 ML/HR. PT UP TO TOILET TO VOID INDEPENDENTLY. PT REPOSITIONING SELF INDEPENDENTLY. NO FAMILY AT BEDSIDE. VITAL SIGNS HAVE REMAINED STABLE. WILL CONTINUE TO MONITOR AND REPORT OFF TO ONCOMING RN.
--- NOTE | 2019-09-04 08:38 | NUR ---
BEDSIDE REPORT TAKEN THIS AM AT 0700. PT SLEEPING, AROUSES TO VOICE. PT DENIES C/O PAIN, NAUSEA. DR CRANETRATE CALLED THIS AM TO GIVE FULL UPDATE. PT ON INSULIN GTT AT 2.5UNITS/HR. BS STABLE, VSS. NEW ORDERS TO START LANTUS; GIVEN AT 0836. BREAKFAST GIVEN, FLUIDS DC'D. WILL TURN INSULIN GTT OFF AT 0936. LABS TO BE REPEATED AT 1100. IF LABS IMPROVED PT WILL BE DC'D HOME TODAY.
--- NOTE | 2019-09-04 09:47 | NUR ---
INSULIN DC'D AT 0930. BS 286 COVERED W REG INSULIN. PT ATE 100% OF BREAKFAST AND IS EATING SNACKS NOW. WILL MONITOR BS CLOSELY,LABS DUE AT 1100.
[2019-09-04 11:32] LABS: Anion Gap 10 mmol/L (6-16); Blood Urea Nitrogen 13 mg/dL (8-24); Bun/Creatinine Ratio 25.2 (12.0-20.0); CO2, Blood 17 mmol/L (21-32); Calcium, Blood 8.3 mg/dL (8.5-10.1); Chloride, Blood 106 mmol/L (98-108); Creatinine, Blood 0.52 mg/dL (0.60-1.20); Glomerular Filtration Rate >60 (60-); Glucose, Blood 279 mg/dL (70-99); Potassium, Blood 3.7 mmol/L (3.5-5.5); Sodium, Blood 133 mmol/L (136-145)
--- NOTE | 2019-09-04 15:53 | NUR ---
[address] FU. DC ORDERS TO GO HOME. PT COVERED W MED SS FOR LUNCH. VSS. PT W/O COMPLAINTS. VERBAL AND WRITTEN DC INFORMATION GIVEN W CLEAR UNDERSTANDING. RX CALLED INTO [facility]. PT STATES HE HAS SUFFICIANT INSULIN AT HOME. ADA DIET REVIEWED. PT DC'D HOME IN STABLE CONDITION.
== END 2019-09-04 12:35 | disposition home or self-care (01) ==
LOC: ER 16:46 → ICUW 16:47 → ICUE 16:47 → ICUW 21:07 → ER 21:07 → ICUE 21:07 → ICUW 21:10 → ICUE 21:33
PROVIDERS: Physician Assistant; ADMIT Internal Medicine
DX: E10.10 Type 1 diabetes mellitus with ketoacidosis without coma (principal); E86.0 Dehydration
CPT/HCPCS: 36415; 71045; 71046; 80048; 80053; 81001; 82010; 82803; 82947; 85025; 93005; 93010; 96372; 99285-25; G0378; J1650; J1815; J3480; J7030; J7042; J7120

== ENCOUNTER 2019-11-13 06:30 | Inpatient (IN) | payer OTHER ==
[~2019-11-13] VITALS: Ht 172.7 cm; Wt 63.5 kg
[~2019-11-13 06:30] MED LIST changes: +ADMELOG SO100 UNIT/1 SC; +BASAGLAR K100 UNIT/2 SC
[2019-11-13 07:10] LABS: BASOPHILS ABSOLUTE AUTO 0.07 K/mm3 (0.00-0.23); BASOPHILS PERCENT AUTO 1 % (0-2); EOSINOPHILS ABSOLUTE AUTO 0.02 K/mm3 (0.00-0.68); EOSINOPHILS PERCENT AUTO 0 % (0-6); Hematocrit 46.4 % (37.0-53.0); IMMATURE GRAN ABSOLUTE AUTO 0.17 K/mm3 (0.00-0.10); IMMATURE GRAN PERCENT AUTO 2 % (0-1); LYMPHOCYTES ABSOLUTE AUTO 1.37 K/mm3 (0.84-5.20); LYMPHOCYTES PERCENT AUTO 19 % (21-46); MONOCYTES ABSOLUTE AUTO 0.44 K/mm3 (0.16-1.47); MONOCYTES PERCENT AUTO 6 % (4-13); Mean Corpuscular HGB 33.2 pg (26.0-34.0); Mean Corpuscular HGB Conc 34.5 g/dL (31.5-36.5); Mean Corpuscular Volume 96 fL (80-100); NEUTROPHILS PERCENT AUTO 72 % (41-73); Platelet Count 379 K/mm3 (150-400); RDW Coefficient Variation 12.6 % (11.7-14.2); RDW Standard Deviation 45.2 fL (35.1-46.3); Red Blood Cell Count 4.82 M/mm3 (4.30-5.90); White Blood Cell Count 7.37 K/mm3 (4.00-11.30)
[2019-11-13 07:49] LABS: Alanine Aminotransfer (ALT/SGP 25 U/L (12-78); Albumin, Blood 4.5 g/dL (3.4-5.0); Albumin/Globulin Ratio 1.2 (0.8-1.8); Alk Phos 104 U/L (50-136); Anion Gap 27 mmol/L (6-16); Aspartate Aminotrans (AST/SGOT 14 U/L (12-37); Beta-hydroxybutyrate 103.1 mg/dL (0.2-2.8); Bilirubin, Total 0.6 mg/dL (0.1-1.0); Blood Urea Nitrogen 12 mg/dL (8-24); Bun/Creatinine Ratio 16.9 (12.0-20.0); CO2, Blood 7 mmol/L (21-32); Calcium, Blood 8.3 mg/dL (8.5-10.1); Chloride, Blood 98 mmol/L (98-108); Creatinine, Blood 0.71 mg/dL (0.60-1.20); Globulin, Blood 3.6 g/dL (2.2-4.0); Glomerular Filtration Rate >60 (60-); Glucose, Blood 533 mg/dL (70-99); Potassium, Blood 3.9 mmol/L (3.5-5.5); Sodium, Blood 132 mmol/L (136-145); Total Protein, Blood 8.1 g/dL (6.4-8.2)
[2019-11-13 08:23] LABS: Glucose, Blood 488 mg/dL (70-99); Troponin I <0.015 ng/mL (0.000-0.040)
--- NOTE | 2019-11-13 10:13 | NUR ---
PT ADMITTED TO ICU FROM ER FOR DKA AT 0915. PT AWAKE AND ALERT AND ABLE TO TRANSFER SELF TO ICU BED. PT DENIES NAUSEA AND PAIN AT THIS TIME. THIS PT IS KNOW TO ME FROM PRIOR ADMISSIONS. PT PLEASANT AND COOPERATIVE. PT ARRIVED WITH INSULIN AT 6UNITS, INSULIN DECREASED TO 5UNITS UPON ADMIT, 2ND LITER OF LR INFUSED AT ADMIT. 3RD LITER INFUSING NOW; NS. INSULIN DECREASED AGAIN TO 3UNITS/HR. DR PORTER IN TO SEE PT AT 1000. OKAY TO FEED PT IF LABS IMPROVED. LABS DRAWN. BS IS DOWN TO 308.
[2019-11-13 10:57] LABS: Magnesium, Blood 1.9 mg/dL (1.6-2.4)
[2019-11-13 11:02] LABS: Anion Gap 21 mmol/L (6-16); Blood Urea Nitrogen 10 mg/dL (8-24); Bun/Creatinine Ratio 17.7 (12.0-20.0); CO2, Blood 7 mmol/L (21-32); Calcium, Blood 6.8 mg/dL (8.5-10.1); Chloride, Blood 109 mmol/L (98-108); Creatinine, Blood 0.57 mg/dL (0.60-1.20); Glomerular Filtration Rate >60 (60-); Glucose, Blood 338 mg/dL (70-99); Phosphorus, Blood 1.6 mg/dL (2.5-4.9); Potassium, Blood 3.2 mmol/L (3.5-5.5); Sodium, Blood 137 mmol/L (136-145)
--- NOTE | 2019-11-13 11:22 | NUR ---
PT IRRITABLE. CRITICAL CO2 OF 7 CALLED INTO [facility]. UPDATE GIVEN. CONT 4TH LITER BOLUS (NS) THEN START D51/2NS W K. INSULIN GTT DOWN TO 2UNITS. OKAY TO START CLEAR LIQUIDS.
--- NOTE | 2019-11-13 12:38 | NUR ---
BS 386, 1/2NS D5 W K STARTED A 150CC/HR. INSULIN GTT INCREASED TO 5UNITS/HR. PT ATE 100% OF ADA CLEAR LIQUID LUNCH; TOLERATED WELL AND IS NAPING NOW. KPHOS RIDER STARTED.
--- NOTE | 2019-11-13 13:16 | NUR ---
BS 385. D5 1/2NS PLACED ON STANDBY. IONIZED CA 1.07. KPHOS IS IN D5, INSULIN GTT INCREASED TO 7UNITS.
[2019-11-13 13:25] LABS: Source, Urine Clean Catch
[2019-11-13 13:42] LABS: Bilirubin, Urine Neg (Neg); Blood, Urine Neg (Neg); Glucose Qualitative, Urine 4+ (Neg); Ketones, Urine 4+ (Neg); Leukocyte Esterase, Urine 1+ (Neg); Nitrite, Urine Neg (Neg); Protein, Urine 1+ (Neg); Specific Gravity, Urine 1.015 (1.003-1.022); Urobilinogen, Urine NORM (Normal)
[2019-11-13 13:48] LABS: Appearance, Urine Clear (Clear); Color, Urine Pale Yellow (P-Yellow)
[2019-11-13 13:50] LABS: Bacteria Few /hpf; Squamous Epithelial Cells Few /hpf (Few)
[2019-11-13 14:37] LABS: Anion Gap 15 mmol/L (6-16); Blood Urea Nitrogen 8 mg/dL (8-24); Bun/Creatinine Ratio 18.6 (12.0-20.0); CO2, Blood 12 mmol/L (21-32); Calcium, Blood 6.9 mg/dL (8.5-10.1); Chloride, Blood 110 mmol/L (98-108); Creatinine, Blood 0.43 mg/dL (0.60-1.20); Glomerular Filtration Rate >60 (60-); Glucose, Blood 277 mg/dL (70-99); Magnesium, Blood 2.1 mg/dL (1.6-2.4); Phosphorus, Blood 2.8 mg/dL (2.5-4.9); Potassium, Blood 3.4 mmol/L (3.5-5.5); Sodium, Blood 137 mmol/L (136-145)
--- NOTE | 2019-11-13 14:47 | NUR ---
BS 245. D5 RESTARTED, INSULIN GTT TO 6UNITS.
--- NOTE | 2019-11-13 15:07 | NUR ---
BS 241. PT SLEEPING RESTFULLY. WILL KEEP INSULIN AT 6UNITS/HR FOR NEXT HOUR.
--- NOTE | 2019-11-13 18:31 | NUR ---
BS 255. INSULIN INCREASED FROM 6UNITS/HR TO 7UNITS/HR. PT TOLERATED LIQUID DINNER WELL. PT WATCHING TV WITHOUT COMPLAINTS. CA GLU AND KPHOS RIDER COMPLETED. D5 1/2 NS WK+ AT 150CC/HR. NS AT TKO
[2019-11-13 18:39] LABS: Anion Gap 11 mmol/L (6-16); Blood Urea Nitrogen 7 mg/dL (8-24); Bun/Creatinine Ratio 20.5 (12.0-20.0); CO2, Blood 14 mmol/L (21-32); Calcium, Blood 7.4 mg/dL (8.5-10.1); Chloride, Blood 110 mmol/L (98-108); Creatinine, Blood 0.34 mg/dL (0.60-1.20); Glomerular Filtration Rate >60 (60-); Glucose, Blood 312 mg/dL (70-99); Magnesium, Blood 1.8 mg/dL (1.6-2.4); Phosphorus, Blood 3.3 mg/dL (2.5-4.9); Potassium, Blood 3.5 mmol/L (3.5-5.5); Sodium, Blood 135 mmol/L (136-145)
--- NOTE | 2019-11-13 18:42 | NUR ---
PT ADMITTED W DKA. INSULIN GTT BETWEEN 2UNITS AND 7UNITS/HR. INSULIN NOW AT 7UNITS HR. BLOOD SUGARS HAVE BEEN AROUND 250 FOR PAST 4HRS. PT STATES THIS IS USUALLY WHERE HE RUNS AT. PT STATES HE FEELS BETTER THAN ON ADMIT. PT'S SKIN LESS FLUSH, RESP RATE NORMAL NOW. VSS. D5 1/2NS W K+ RUNNING AT 150CC/HR. PT DRINKING ADEQUATE AMT OF FLUIDS; TOLERATING FLUIDS WELL. URINATING WELL. PT RESTING IN BED WATCHING TV NOW W/O COMPLAINTS.
--- NOTE | 2019-11-13 20:02 | NUR ---
ASSUMED PT CARE AT 1915 PT RESTING IN BED. GLUCOSE CHECKED AT THIS TIME AND IT WAS 193. INSULIN DRIP TO 5 UNIT/HOUR. D5 1/2NS AT 150/HR. PT STATES HE IS HUNGRY, DENIES NAUSEA AND VOMITING. DIET TOLERATED PER REPORT. CALL LIGHT WITHIN REACH. WILL CONTINUE TO MONITOR GLUCOSE.
[2019-11-14 03:27] LABS: BASOPHILS ABSOLUTE AUTO 0.03 K/mm3 (0.00-0.23); BASOPHILS PERCENT AUTO 1 % (0-2); EOSINOPHILS ABSOLUTE AUTO 0.11 K/mm3 (0.00-0.68); EOSINOPHILS PERCENT AUTO 2 % (0-6); Hematocrit 35.9 % (37.0-53.0); Hemoglobin 12.9 g/dL (13.5-17.5); IMMATURE GRAN ABSOLUTE AUTO 0.04 K/mm3 (0.00-0.10); IMMATURE GRAN PERCENT AUTO 1 % (0-1); LYMPHOCYTES ABSOLUTE AUTO 2.75 K/mm3 (0.84-5.20); LYMPHOCYTES PERCENT AUTO 42 % (21-46); MONOCYTES ABSOLUTE AUTO 0.68 K/mm3 (0.16-1.47); MONOCYTES PERCENT AUTO 10 % (4-13); Mean Corpuscular HGB 33.4 pg (26.0-34.0); Mean Corpuscular HGB Conc 35.9 g/dL (31.5-36.5); Mean Platelet Volume 8.8 fL (9.1-12.4); NEUTROPHILS ABSOLUTE AUTO 2.94 K/mm3 (1.96-9.15); NEUTROPHILS PERCENT AUTO 45 % (41-73); Platelet Count 264 K/mm3 (150-400); RDW Coefficient Variation 12.9 % (11.7-14.2); RDW Standard Deviation 43.8 fL (35.1-46.3); Red Blood Cell Count 3.86 M/mm3 (4.30-5.90); White Blood Cell Count 6.55 K/mm3 (4.00-11.30)
[2019-11-14 03:29] LABS: Mean Corpuscular Volume 93 fL (80-100)
[2019-11-14 03:51] LABS: Anion Gap 9 mmol/L (6-16); Blood Urea Nitrogen 10 mg/dL (8-24); Bun/Creatinine Ratio 18.5 (12.0-20.0); CO2, Blood 21 mmol/L (21-32); Calcium, Blood 8.1 mg/dL (8.5-10.1); Chloride, Blood 110 mmol/L (98-108); Creatinine, Blood 0.54 mg/dL (0.60-1.20); Glomerular Filtration Rate >60 (60-); Glucose, Blood 143 mg/dL (70-99); Phosphorus, Blood 2.5 mg/dL (2.5-4.9); Potassium, Blood 3.2 mmol/L (3.5-5.5); Sodium, Blood 140 mmol/L (136-145)
[2019-11-14 03:57] LABS: Beta-hydroxybutyrate 9.9 mg/dL (0.2-2.8)
--- NOTE | 2019-11-14 05:46 | NUR ---
END SHIFT SUMMARY PT REMAINED ON INSULIN DRIP ALL NIGHT. REFERENCE INSULIN FLOWSHEET. INSULIN NOW SET TO 3UNITS/HOUR. D5 1/2 NS WITH 20 MeQ OF POTASSIUM INFUSING AT 150ML/HR. PT WITH STRONG APPETITE THROUGHOUT NIGHT. MANY SNACKS PROVIDED. PT INDEPENDENT WITH REPOSITIONING/URINAL USE. ABLE TO MAKE NEEDS KNOWN. CALL LIGHT WITHIN REACH.
--- NOTE | 2019-11-14 06:05 | NUR ---
STUDENT NURSE DOCUMENTATION REVIEW I REVIEWED AND AGREE WITH BOTH ASSUMED PT CARE NOTE AND END OF SHIFT SUMMARY NOTE.
--- NOTE | 2019-11-14 07:30 | NUR ---
ASSUMED CARE RECEIVED REPORT FROM PAOLO FAUST. PT IS LYING IN BED A&OX4, DENIES NAUSEA, SOB, AND CP. HE IS ON AN INSULIN GTTP AT 4 UNITS/KG/HR. SCD'S ARE ON BILATERAL CALVES. BED LOW AND LOCKED. CALL LIGHT WITHIN REACH.
--- NOTE | 2019-11-14 08:56 | NUR ---
UPDATE PT HAD BREAKFAST, WITH JUICE, AND HAD A SPIKE IN BLOOD SUGAR OF 341 (FROM 171). THIS HAPPENED AT 0845. LANTUS WAS GIVEN AT 0826. I BUMPED UP THE INSULIN GTTP TO 5 UNITS/KG/HR (@ 0845) FOR ITS LAST HOUR INFUSING (ORDERS TO STOP INSULIN GTTP AFTER 1 HOUR OF LANTUS BEING ON BOARD). PT STATES HE IS FEELING MUCH BETTER, NONETHELESS.
--- NOTE | 2019-11-14 10:03 | NUR ---
UPDATE PT'S LAST SUGAR AT 0945 WAS 278 (FROM 341). I WILL KEEP THE INSULIN GTTP ON (TITRATED DOWN TO 3 UNITS/KG/HR) FOR ANOTHER HOUR, AND WILL REASSESS AFTER TAKING ANOTHER BLOOD SUGAR.
[2019-11-14] MEDS ORDERED: INSULIN LI100 UNIT/2 SC (13:21)
[2019-11-14] MEDS ORDERED: Lisinopril2.5 MG PO (13:23)
[2019-11-14] MEDS ORDERED: Diflucan100 MG PO (13:23)
--- NOTE | 2019-11-14 15:27 | NUR ---
UPDATE/DISCHARGE 1100 - CB, INSULIN GTTP TURNED OFF 1130 - LUNCH SERVED 59g OF CARBS, COVERED WITH 1 UNIT PER 7g = 8 UNITS OF INSULIN LISPRO GIVEN. 1353 - CB, SLIDING SCALE COVERAGE = 7 UNITS OF INSULIN LISPRO GIVEN 1430 - DISCHARGED PT TAKES CARB COVERAGE INSULIN WITH HIS MEALS, AND THEN RECHECKS SUGAR ~ 2 HOURS POST MEAL INTAKE AND DOES SLIDING SCALE COVERAGE THEN. DECIDED TO HOLD THE SLIDING SCALE AT 1130 DUE TO SUGAR BEING ONLY 164, AND THE FACT HE WAS ALREADY GETTING 8 UNITS FOR THE LUNCH/CARB COVERAGE FOR THE 59g OF CARBS HE INGESTED. AT TIME OF DISCHARGE PT STATED HE "...FEELS GOOD". DENYING NAUSEA, CHEST/ABD PAIN. HR, BP, O2 SATS, AND RR WNL. DR. PORTER ADDRESSED HIS CONCERNS FOR HIS YEAST INFECTION.
== END 2019-11-14 14:30 | disposition home or self-care (01) | DRG 639 ==
LOC: ER 06:30 → ICUW 08:13 → ICUE 08:50
PROVIDERS: Emergency Medicine; ADMIT Internal Medicine
DX: E10.10 Type 1 diabetes mellitus with ketoacidosis without coma (principal); E87.6 Hypokalemia; E83.39 Other disorders of phosphorus metabolism; E83.51 Hypocalcemia; R35.8 Other polyuria; Z79.4 Long term (current) use of insulin
CPT/HCPCS: 36415; 80048; 80053; 81001; 82010; 82330; 82800; 82947; 83036; 83735; 84100; 84484; 85025; 93005; 93010; 96361; 96374; 99285-25; A9270; A9270-GY; C9113; J0610; J1815; J2405; J3480; J7030; J7060; J7120

== ENCOUNTER 2019-12-29 07:58 | Inpatient (IN) | payer OTHER ==
[~2019-12-29] VITALS: Ht 172.7 cm; Wt 63.0 kg
[~2019-12-29 07:58] MED LIST changes: +Diflucan100 MG PO; +LANTUS SOL100 UNIT/1 SC; +LISI5 PO; +NOVOLOG FL100 UNIT/3 SC
[2019-12-29 08:47] LABS: Hematocrit 52.5 % (37.0-53.0); Hemoglobin 17.1 g/dL (13.5-17.5); Mean Corpuscular HGB 34.1 pg (26.0-34.0); Mean Corpuscular HGB Conc 32.6 g/dL (31.5-36.5); Mean Corpuscular Volume 105 fL (80-100); Mean Platelet Volume 9.6 fL (9.1-12.4); Platelet Count 513 K/mm3 (150-400); RDW Coefficient Variation 12.3 % (11.7-14.2); RDW Standard Deviation 47.3 fL (35.1-46.3); Red Blood Cell Count 5.02 M/mm3 (4.30-5.90); White Blood Cell Count 19.85 K/mm3 (4.00-11.30)
[2019-12-29 09:02] LABS: Alanine Aminotransfer (ALT/SGP 44 U/L (12-78); Albumin, Blood 5.4 g/dL (3.4-5.0); Albumin/Globulin Ratio 1.2 (0.8-1.8); Alk Phos 172 U/L (50-136); Anion Gap 28 mmol/L (6-16); Aspartate Aminotrans (AST/SGOT 28 U/L (12-37); Bilirubin, Total 0.6 mg/dL (0.1-1.0); Blood Urea Nitrogen 20 mg/dL (8-24); Bun/Creatinine Ratio 21.7 (12.0-20.0); CO2, Blood 7 mmol/L (21-32); Calcium, Blood 10.6 mg/dL (8.5-10.1); Chloride, Blood 95 mmol/L (98-108); Creatinine, Blood 0.92 mg/dL (0.60-1.20); Globulin, Blood 4.5 g/dL (2.2-4.0); Glomerular Filtration Rate >60 (60-); Glucose, Blood 502 mg/dL (70-99); Potassium, Blood 4.6 mmol/L (3.5-5.5); Sodium, Blood 130 mmol/L (136-145); Total Protein, Blood 9.9 g/dL (6.4-8.2)
[2019-12-29 09:04] LABS: Base Excess Venous -28.4 mmol/L; Bicarbonate Venous 7.6 mmol/L (24.0-30.0); PCO2 Venous 20.1 mmHg (38-42); PO2 Venous 137 mmHg (38-42)
[2019-12-29 09:05] LABS: pH Blood Venous 6.92 (7.34-7.37)
[2019-12-29 09:05] LABS: Magnesium, Blood 2.4 mg/dL (1.6-2.4)
[2019-12-29 09:14] LABS: BAND PERCENT MAN 5 % (0-8); BASOPHILS PERCENT MAN 0 % (0-2); EOSINOPHILS PERCENT MAN 0 % (0-6); LYMPHOCYTES ABSOLUTE MAN 1.78 K/mm3 (0.84-5.20); LYMPHOCYTES PERCENT MAN 9 % (21-46); MONOCYTES ABSOLUTE MAN 0.59 K/mm3 (0.16-1.47); MONOCYTES PERCENT MAN 3 % (4-13); NEUTROPHILS ABSOLUTE MAN 17.46 K/mm3 (1.96-9.15); SEG NEUTROPHILS PERCENT MAN 83 % (41-73); TOTAL CELLS COUNTED 100
[2019-12-29 09:15] LABS: Beta-hydroxybutyrate 99.9 mg/dL (0.2-2.8)
[2019-12-29 11:10] LABS: Glucose, Blood 307 mg/dL (70-99)
--- NOTE | 2019-12-29 11:16 | NUR ---
ADMIT NOTE- PT ADMITTED TO ICU FROM ER [facility]. ABLE TO AMBULATE TO BED. AWAKE, ALERT, COOPERATIVE, TALKATIVE, NO DISTRESS. DENIES NAUSEA OR ABDOMINAL PAIN. ABDOMEN NONTENDER. REQUESTING ICE. SINUS TACH, BP STABLE. COLOR PINK, RESPIRATIONS UNLABORED. LABS DRAWN FROM NU IV SITE, PIV X 2 INTACT. BLOOD SUGAR 297, INSULIN GTT AT 6.4 UNITS/HR. NS AT 150 CC/HR. C/O PERSISTANT YEAST INFECTION-UNCIRCUMCISED, SKIN VERY DRY, WHITE DISCHARGE PRESENT. PERICARE DONE. DISCUSSED DKA, PLAN OF CARE. UPDATE CALLED TO DR. AMARAL-TO CHANGE TO D5 1/2 NS. GIRLFRIEND IN ROOM.
--- NOTE | 2019-12-29 13:28 | NUR ---
PT STABLE, TAKING SIPS WATER, NO N/V. VISITING WITH GIRLFRIEND. BLOOD SUGAR 209, D5 1/2NS 150 CC/HR.
[2019-12-29 15:12] LABS: Anion Gap 18 mmol/L (6-16); Blood Urea Nitrogen 15 mg/dL (8-24); Bun/Creatinine Ratio 24.3 (12.0-20.0); CO2, Blood 7 mmol/L (21-32); Chloride, Blood 107 mmol/L (98-108); Creatinine, Blood 0.62 mg/dL (0.60-1.20); Glomerular Filtration Rate >60 (60-); Glucose, Blood 228 mg/dL (70-99); Sodium, Blood 132 mmol/L (136-145)
[2019-12-29 15:15] LABS: Calcium, Blood 8.3 mg/dL (8.5-10.1)
--- NOTE | 2019-12-29 15:28 | NUR ---
PT SLEEPING, NO S/S DISTRESS. SEE LABS. CONTINUE TO MONITOR BLOOD SUGARS, INSULIN GTT AT 6.4 UNITS/HR INFUSING AND D5 1/2 NS AT 150 CC/HR.
--- NOTE | 2019-12-29 16:45 | NUR ---
C/O HUNGER AND STATES "I'LL THROW UP IF I DON'T GET ANYTHING TO EAT". REVIEWED PLAN, ANSWERED QUESTIONS. AWAITING LABS. BLOOD SUGAR CONSISTENTLY AROUND 200'S. VSS. PIV X 2 INTACT.
[2019-12-29 18:20] LABS: Anion Gap 13 mmol/L (6-16); Blood Urea Nitrogen 11 mg/dL (8-24); CO2, Blood 12 mmol/L (21-32); Calcium, Blood 8.5 mg/dL (8.5-10.1); Chloride, Blood 107 mmol/L (98-108); Creatinine, Blood 0.58 mg/dL (0.60-1.20); Glomerular Filtration Rate >60 (60-); Glucose, Blood 202 mg/dL (70-99); Potassium, Blood 3.9 mmol/L (3.5-5.5); Sodium, Blood 132 mmol/L (136-145)
--- NOTE | 2019-12-29 18:30 | NUR ---
LABS IMPROVED, NOTIFIED DR. AMARAL. CONTINUE INSULIN GTT AND D5 1/2 NS ORDERED. OK FOR FEW CRACKERS. NOW SINUS RHTYHM, VSS, NO DISTRESS. CONTINUE TO MONITOR
--- NOTE | 2019-12-29 19:20 | NUR ---
ASSUMED CARE RECEIVED REPORT FROM PAOLO BROWNE. PT IS LYING IN BED, DROWSY, BUT ALERT AND ORIENTED X 4. HE HAS D5-1/2NS INFUSING AT 150 ML/HR, AND AN INSULIN GTTP INFUSING AT 6.4 UNITS/KG/HOUR. HE DENIES ANY PAIN, NAUSEA, OR SOB. BED IS LOW AND LOCKED. CALL LIGHT WITHIN REACH.
[2019-12-29 20:47] LABS: Anion Gap 9 mmol/L (6-16); Blood Urea Nitrogen 9 mg/dL (8-24); Bun/Creatinine Ratio 17.7 (12.0-20.0); CO2, Blood 17 mmol/L (21-32); Calcium, Blood 8.8 mg/dL (8.5-10.1); Chloride, Blood 108 mmol/L (98-108); Creatinine, Blood 0.51 mg/dL (0.60-1.20); Glomerular Filtration Rate >60 (60-); Glucose, Blood 205 mg/dL (70-99); Potassium, Blood 3.7 mmol/L (3.5-5.5); Sodium, Blood 134 mmol/L (136-145)
[2019-12-30 01:22] LABS: Anion Gap 7 mmol/L (6-16); Blood Urea Nitrogen 10 mg/dL (8-24); Bun/Creatinine Ratio 19.1 (12.0-20.0); CO2, Blood 19 mmol/L (21-32); Calcium, Blood 8.8 mg/dL (8.5-10.1); Chloride, Blood 109 mmol/L (98-108); Creatinine, Blood 0.52 mg/dL (0.60-1.20); Glomerular Filtration Rate >60 (60-); Glucose, Blood 193 mg/dL (70-99); Potassium, Blood 3.2 mmol/L (3.5-5.5); Sodium, Blood 135 mmol/L (136-145)
[2019-12-30 04:19] LABS: BASOPHILS ABSOLUTE AUTO 0.03 K/mm3 (0.00-0.23); BASOPHILS PERCENT AUTO 0 % (0-2); EOSINOPHILS ABSOLUTE AUTO 0.03 K/mm3 (0.00-0.68); EOSINOPHILS PERCENT AUTO 0 % (0-6); Hematocrit 41.6 % (37.0-53.0); Hemoglobin 14.9 g/dL (13.5-17.5); IMMATURE GRAN ABSOLUTE AUTO 0.04 K/mm3 (0.00-0.10); IMMATURE GRAN PERCENT AUTO 1 % (0-1); LYMPHOCYTES ABSOLUTE AUTO 1.85 K/mm3 (0.84-5.20); LYMPHOCYTES PERCENT AUTO 23 % (21-46); MONOCYTES ABSOLUTE AUTO 0.86 K/mm3 (0.16-1.47); MONOCYTES PERCENT AUTO 11 % (4-13); Mean Corpuscular HGB 33.9 pg (26.0-34.0); Mean Corpuscular HGB Conc 35.8 g/dL (31.5-36.5); Mean Platelet Volume 8.4 fL (9.1-12.4); NEUTROPHILS ABSOLUTE AUTO 5.29 K/mm3 (1.96-9.15); NEUTROPHILS PERCENT AUTO 65 % (41-73); Platelet Count 339 K/mm3 (150-400); RDW Coefficient Variation 11.9 % (11.7-14.2); RDW Standard Deviation 41.3 fL (35.1-46.3)
[2019-12-30 04:21] LABS: Mean Corpuscular Volume 95 fL (80-100)
[2019-12-30 04:41] LABS: Anion Gap 7 mmol/L (6-16); Blood Urea Nitrogen 10 mg/dL (8-24); Bun/Creatinine Ratio 18.6 (12.0-20.0); CO2, Blood 19 mmol/L (21-32); Chloride, Blood 110 mmol/L (98-108); Creatinine, Blood 0.54 mg/dL (0.60-1.20); Glomerular Filtration Rate >60 (60-); Glucose, Blood 111 mg/dL (70-99); Potassium, Blood 3.5 mmol/L (3.5-5.5); Sodium, Blood 136 mmol/L (136-145)
--- NOTE | 2019-12-30 05:17 | NUR ---
SHIFT SUMMARY NO MAJOR EVENTS OVERNIGHT. PT APPEARS SORT OF DEPRESSED, HE COMPLAINS OF HUNGER AND FEELING STOMACH PAIN BECAUSE HE HAS NOTHING IN HIS SYSTEM. HE FEELS HE NEEDS TO HAVE A BOWEL MOVEMENT, BUT BECAUSE HE DOESN'T HAVE ANY FOOD IN HIS SYSTEM - HE FEELS UNCOMFORTABLE. HIS LABS HAVE IMPROVED SIGNIFICANTLY THROUGHOUT THE NIGHT. GAP REMAINS CLOSED, CO2 IS UP TO 19, SODIUM IS UP TO 135, POTASSIUM WAS REPLACED - BUT IS NOW 3.5 WITH 20 MEQ STILL INFUSING. - I PLACED A CALL TO DR GRIFFIN AND HE ORDERED HIM TO HAVE AN ADA DIET, TO CONTINUE WITH INSULIN GTTP AT LOWER DOSE, AND IS WITHOLDING ON A LONG ACTING INSULIN AT THE MOMENT. THE LAST FEW HOURS SUGARS HAVE DROPPED TO 111-127 (FROM A RANGE OF 160-220 FOR MAJORITY OF NIGHT), SO I DROPPED THE INSULIN RATE IN HALF WHEN IT DROPPED FROM 163--127, AND THEN IT DROPPED TO 101 SO WE WENT DOWN TO 2 UNITS/KG/HOUR. PT IS INDEPENDENT IN ROOM, HAS BEEN UP IN THE ROOM A FEW TIMES. PT DENIES ANY CURRENT CP, ABD PAIN, SOB, NAUSEA, AND NUMBNESS/TINGLING. HE DENIES ANY PAIN IN HIS PENIS. BED LOW AND LOCKED. CALL LIGHT WITHIN REACH.
--- NOTE | 2019-12-30 07:44 | NUR ---
ASSESSMENT- PT AWAKE, ALERT, COOPERATIVE. DENIES ANY PAIN OR SOB. LUNGS CLEAR, NSR, BP STABLE. IV D5 1/2 NS AT 150 CC/HR, INSULIN GTT AT 2 UNITS/HR, BLOOD SUGAR 157. C/O HUNGER. PIV X 2 INTACT. SKIN W/D.
--- NOTE | 2019-12-30 08:59 | NUR ---
PT SITTING UP IN BED WITHOUT PROBLEMS. BLOOD SUGAR 197-LANTUS GIVEN.
--- NOTE | 2019-12-30 09:18 | NUR ---
PT ATE 100% BREAKFAST, INSULIN GTT OFF.
--- NOTE | 2019-12-30 10:18 | NUR ---
DR. AMARAL HERE-UPDATED, ASSESSED PT. ORDERS FOR NS TO INCREASE TO 150 CC/HR. PT REQUESTING DISCHARGE TODAY, TO CHECK LABS AT 1300.
--- NOTE | 2019-12-30 12:20 | NUR ---
PT STATES ANGRY REGARDING NEED TO STAY IN HOSPITAL. STATES DOESN'T LIKE INSULIN INJECTIONS, STATES REFUSES TO WEAR A PUMP ON HIS BODY. DISCUSSED DIABETES, CHRONIC ILLNESS. REFUSES COUNSELING WITH YAM CURER. EMOTIONAL SUPPORT GIVEN. BLOOD SUGAR 319, COVERED PER ORDERS, EATING
[2019-12-30 14:08] LABS: Anion Gap 12 mmol/L (6-16); Blood Urea Nitrogen 10 mg/dL (8-24); Bun/Creatinine Ratio 17.2 (12.0-20.0); CO2, Blood 17 mmol/L (21-32); Calcium, Blood 8.2 mg/dL (8.5-10.1); Chloride, Blood 104 mmol/L (98-108); Creatinine, Blood 0.58 mg/dL (0.60-1.20); Glomerular Filtration Rate >60 (60-); Glucose, Blood 404 mg/dL (70-99); Phosphorus, Blood 1.6 mg/dL (2.5-4.9); Potassium, Blood 3.7 mmol/L (3.5-5.5); Sodium, Blood 133 mmol/L (136-145)
[2019-12-30 14:10] LABS: Albumin, Blood 3.1 g/dL (3.4-5.0)
--- NOTE | 2019-12-30 14:58 | NUR ---
DR. AMARAL CALLED-UPDATED. BLOOD SUGAR ELEVATED, CO2 17. PT INSISTING ON LEAVING. EXPLAINED NEED TO STAY FOR MONITORING, LABS, BLOOD SUGAR CONTROL. STATES WILL LEAVE AMA. AGREEABLE TO FLUID BOLUS STARTED, TOOK DIFLUCAN, NEUTRAPHOS. NOTIFIED DR. AMARAL. PT AGREEABLE TO STAY NOW UNTIL BOLUS INFUSED AND RECHECK BLOOD SUGAR
--- NOTE | 2019-12-30 15:25 | NUR ---
FLUID BOLUS INFUSED. BLOOD SUGAR 295. UPDATE TO DR. AMARAL, ORDERS FOR COVERAGE. PT STATES WANTS TO LEAVE HOSPITAL
--- NOTE | 2019-12-30 15:56 | NUR ---
PT INSISTENT TO LEAVE, SIGNED AMA. IVS D/C. EXPLAINED TO PT NEED TO READ DIABETIC EDUCATION MATERIALS, NEED TO CALL PRIMARY CARE PHYSICIAN AND GET AN APPOINTMENT FOR TOMORROW. KNOWS INSULIN DOSES, KNOWS RECEIVED INSULIN TODAY, KNOWS NEEDS RX FOR DIFLUCAN. STATES UNDERSTANDING. UP IN ROOM BY SELF, NO DISTRESS, AMBULATED FROM ROOM. NOTIFIED DR AMARAL.
== END 2019-12-30 15:50 | disposition left against medical advice (07) | DRG 638 ==
LOC: ER 07:58 → ICUW 09:29 → EDBEDREQ 10:15 → EDBEDREQTM 10:15 → EDBEDREQSVC 10:15 → ICUE 10:23
PROVIDERS: Emergency Medicine; ADMIT Family Medicine
DX: E10.10 Type 1 diabetes mellitus with ketoacidosis without coma (principal); E87.1 Hypo-osmolality and hyponatremia; D69.6 Thrombocytopenia, unspecified; E86.0 Dehydration; E83.52 Hypercalcemia; N48.1 Balanitis; R00.0 Tachycardia, unspecified; Z79.4 Long term (current) use of insulin
CPT/HCPCS: 36415; 74022; 80048; 80053; 80069; 82010; 82803; 82947; 83690; 83735; 85025; 96361; 96374; 96375; 99285-25; J1170; J1650; J1815; J2405; J3480; J7030; J7040; J7042

== ENCOUNTER 2020-02-22 10:42 | Inpatient (IN) | payer OTHER ==
[~2020-02-22] VITALS: Ht 172.7 cm; Wt 63.9 kg
[2020-02-22 11:16] LABS: BASOPHILS ABSOLUTE AUTO 0.04 K/mm3 (0.00-0.23); BASOPHILS PERCENT AUTO 1 % (0-2); EOSINOPHILS PERCENT AUTO 0 % (0-6); Hematocrit 52.9 % (37.0-53.0); Hemoglobin 17.6 g/dL (13.5-17.5); IMMATURE GRAN ABSOLUTE AUTO 0.07 K/mm3 (0.00-0.10); IMMATURE GRAN PERCENT AUTO 1 % (0-1); LYMPHOCYTES ABSOLUTE AUTO 1.32 K/mm3 (0.84-5.20); LYMPHOCYTES PERCENT AUTO 18 % (21-46); MONOCYTES PERCENT AUTO 4 % (4-13); Mean Corpuscular HGB 33.1 pg (26.0-34.0); Mean Corpuscular HGB Conc 33.3 g/dL (31.5-36.5); Mean Corpuscular Volume 100 fL (80-100); Mean Platelet Volume 9.4 fL (9.1-12.4); NEUTROPHILS ABSOLUTE AUTO 5.47 K/mm3 (1.96-9.15); NEUTROPHILS PERCENT AUTO 76 % (41-73); Platelet Count 342 K/mm3 (150-400); RDW Coefficient Variation 11.9 % (11.7-14.2); RDW Standard Deviation 43.9 fL (35.1-46.3); Red Blood Cell Count 5.31 M/mm3 (4.30-5.90)
[2020-02-22 11:54] LABS: Alanine Aminotransfer (ALT/SGP 29 U/L (12-78); Albumin, Blood 4.8 g/dL (3.4-5.0); Albumin/Globulin Ratio 1.1 (0.8-1.8); Alk Phos 114 U/L (50-136); Anion Gap 23 mmol/L (6-16); Aspartate Aminotrans (AST/SGOT 15 U/L (12-37); Beta-hydroxybutyrate 95.9 mg/dL (0.2-2.8); Bilirubin, Total 0.8 mg/dL (0.1-1.0); Blood Urea Nitrogen 18 mg/dL (8-24); Bun/Creatinine Ratio 26.9 (12.0-20.0); CO2, Blood 7 mmol/L (21-32); Calcium, Blood 9.1 mg/dL (8.5-10.1); Chloride, Blood 100 mmol/L (98-108); Creatinine, Blood 0.67 mg/dL (0.60-1.20); Globulin, Blood 4.2 g/dL (2.2-4.0); Glomerular Filtration Rate >60 (60-); Glucose, Blood 342 mg/dL (70-99); Potassium, Blood 4.4 mmol/L (3.5-5.5); Sodium, Blood 130 mmol/L (136-145)
[2020-02-22] MEDS ORDERED: LANTUS SOL100 UNIT/1 SC (12:15)
[2020-02-22] MEDS ORDERED: Lisinopril2.5 MG PO (12:16)
[2020-02-22 13:21] LABS: Base Excess Venous -25.8 mmol/L; Bicarbonate Venous 8.6 mmol/L (24.0-30.0); PCO2 Venous 23.7 mmHg (38-42); PO2 Venous 92.3 mmHg (38-42); pH Blood Venous 6.99 (7.34-7.37)
[2020-02-22 16:22] LABS: Anion Gap 18 mmol/L (6-16); Blood Urea Nitrogen 14 mg/dL (8-24); Bun/Creatinine Ratio 20.3 (12.0-20.0); CO2, Blood 11 mmol/L (21-32); Calcium, Blood 7.8 mg/dL (8.5-10.1); Chloride, Blood 105 mmol/L (98-108); Creatinine, Blood 0.69 mg/dL (0.60-1.20); Glomerular Filtration Rate >60 (60-); Glucose, Blood 181 mg/dL (70-99); Potassium, Blood 4.2 mmol/L (3.5-5.5); Sodium, Blood 134 mmol/L (136-145)
--- NOTE | 2020-02-22 17:24 | NUR ---
ASSUMED CARE/SUMMARY PT ARRIVES TO ICU AT ~1548. HE IS ALERT AND ORIENTED X 4, AND STATES HE FEELS MUCH BETTER ALREADY. INSULIN GTTP RUNNING AT 6 UNITS/HOUR. D5-1/2 NS IS INFUSING AT 150 ML/HR. SUGAR UPON ARRIVAL WAS 201. PT DENIES ANY PAIN, SOB, AND NAUSEA. STABLE VITALS, SINUS RHYTHM. ROOM AIR. HE IS INDEPENDENT IN ROOM. PT TOLD ME THAT HIS DOCTOR IS TRYING TO GET HIM TO TAKE LISINOPRIL FOR HIS KIDNEYS, BUT HE REFUSES TO TAKE IT - SO I REMOVED IT FROM HIS LIST. HE ALSO SAYS HE DOESN'T TAKE HIS LONG ACTING INSULIN AT NIGHT (ORDER IS BID), HE SAYS HE WON'T REMEMBER TO TAKE IT AT NIGHT, SO HE ONLY TAKES IT IN THE MORNING. BED LOW AND LOCKED. CALL LIGHT WITHIN REACH. PT CURRENTLY RESTING.
--- NOTE | 2020-02-22 19:44 | NUR ---
ASSUMING CARE OF PATIENT- 1899 PATIENT IS RESTING IN BED. HE RESPONDS APPROPRIATELY AND IS NEUROLOGICALLY INTACT. HE HAS INSULIN INFUSING AT 8 UNITS/HR AND D5 1/2NS AT 150 MLS/HR THOUGH A PIV IN THE RIGHT AC. HIS BLOOD SUGAR AT THE 1899 CHECK WAS 244. THE INSULIN DRIP WAS TITRATED TO 9 UNITS/HR. BEDSIDE CARDIAC MONTIOR SHOW NSR WITH A RATE IN THE 70S. URINAL IS AT THE BEDSIDE. PATIENT REMINDED OF NEED FOR A UA. CALL LIGHT WITHIN REACH. 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
[2020-02-22 20:24] LABS: Source, Urine Clean Catch
[2020-02-22 20:27] LABS: Bilirubin, Urine Neg (Neg); Blood, Urine Neg (Neg); Glucose Qualitative, Urine 4+ (Neg); Ketones, Urine 4+ (Neg); Leukocyte Esterase, Urine Neg (Neg); Nitrite, Urine Neg (Neg); Protein, Urine 2+ (Neg); Urobilinogen, Urine NORM (Normal)
[2020-02-22 20:29] LABS: Anion Gap 10 mmol/L (6-16); Blood Urea Nitrogen 10 mg/dL (8-24); Bun/Creatinine Ratio 16.3 (12.0-20.0); CO2, Blood 18 mmol/L (21-32); Calcium, Blood 8.1 mg/dL (8.5-10.1); Chloride, Blood 108 mmol/L (98-108); Creatinine, Blood 0.61 mg/dL (0.60-1.20); Glomerular Filtration Rate >60 (60-); Glucose, Blood 179 mg/dL (70-99); Potassium, Blood 3.7 mmol/L (3.5-5.5); Sodium, Blood 136 mmol/L (136-145)
[2020-02-22 20:31] LABS: Appearance, Urine Clear (Clear); Color, Urine Yellow (P-Yellow)
[2020-02-22 20:34] LABS: Amorphous Light (0-Heavy); Bacteria Not Seen /hpf; Granular Casts 0-2 /lpf (0); Mucus Light (0-Heavy); Red Blood Cells, Urine Not Seen /hpf (0-2); Squamous Epithelial Cells Not Seen /hpf (Few); White Blood Cells, Urine Rare /hpf (0-5)
--- NOTE | 2020-02-22 21:34 | NUR ---
DC PT LEAVING AMA, IV'S REMOVED. PT SIGNED AMA PAPERWORK. DR AMARAL NOTIFIED
--- NOTE | 2020-02-23 00:09 | NUR ---
PATIENT LEAVING AMA- 02/22/20 2100 PATIENT CALLED THIS RN INTO ROOM AND REPORTED THAT HE WANTED TO LEAVE AND THAT HE DID NOT WANT TO STAY THE NIGHT BECAUSE HE WAS HUNGRY. PROFESSIONAL ARCHITECT INTO ROOM TO SPEAK WITH PATIENT. SHE REPORTED THAT THE PATIENT RELAYED TO HER THAT EVEN WE COULD GET HIM A DIET ORDER TONIGHT HE WANTED TO LEAVE. PROVIDER UPDATED REGARDING PATIENT'S WISHES. REVIEWED LABS WITH PROVIDER. PATIENT GIVEN AMA PAPERWORK WHICH WAS SIGNED.
== END 2020-02-22 21:35 | disposition left against medical advice (07) | DRG 638 ==
LOC: ER 10:42 → ICUW 13:11
PROVIDERS: Emergency Medicine; Nurse Practitioner Acute Care; ADMIT Internal Medicine
DX: E10.10 Type 1 diabetes mellitus with ketoacidosis without coma (principal); E87.1 Hypo-osmolality and hyponatremia; B37.49 Other urogenital candidiasis; Z79.4 Long term (current) use of insulin
CPT/HCPCS: 36415; 80048; 80053; 81001; 82010; 82803; 82947; 83735; 84100; 85025; 93005; 93010; J1815; J3480; J7030; J7042

== ENCOUNTER 2020-02-23 08:29 | Inpatient (IN) | payer OTHER ==
[~2020-02-23] VITALS: Ht 172.7 cm; Wt 65.4 kg
[~2020-02-23 08:29] MED LIST changes: +Lisinopril2.5 MG PO
[2020-02-23 09:03] LABS: BASOPHILS ABSOLUTE AUTO 0.05 K/mm3 (0.00-0.23); BASOPHILS PERCENT AUTO 1 % (0-2); EOSINOPHILS ABSOLUTE AUTO 0.02 K/mm3 (0.00-0.68); EOSINOPHILS PERCENT AUTO 0 % (0-6); Hematocrit 51.8 % (37.0-53.0); Hemoglobin 17.5 g/dL (13.5-17.5); IMMATURE GRAN ABSOLUTE AUTO 0.06 K/mm3 (0.00-0.10); IMMATURE GRAN PERCENT AUTO 1 % (0-1); LYMPHOCYTES ABSOLUTE AUTO 1.54 K/mm3 (0.84-5.20); LYMPHOCYTES PERCENT AUTO 14 % (21-46); MONOCYTES ABSOLUTE AUTO 0.58 K/mm3 (0.16-1.47); MONOCYTES PERCENT AUTO 5 % (4-13); Mean Corpuscular HGB Conc 33.8 g/dL (31.5-36.5); Mean Corpuscular Volume 98 fL (80-100); Mean Platelet Volume 8.8 fL (9.1-12.4); NEUTROPHILS ABSOLUTE AUTO 8.41 K/mm3 (1.96-9.15); NEUTROPHILS PERCENT AUTO 79 % (41-73); Platelet Count 346 K/mm3 (150-400); RDW Coefficient Variation 11.9 % (11.7-14.2); RDW Standard Deviation 43.6 fL (35.1-46.3); Red Blood Cell Count 5.31 M/mm3 (4.30-5.90); White Blood Cell Count 10.66 K/mm3 (4.00-11.30)
[2020-02-23 09:05] LABS: Base Excess Venous -26.6 mmol/L; Bicarbonate Venous 8.9 mmol/L (24.0-30.0); PO2 Venous 136 mmHg (38-42); pH Blood Venous 7.04 (7.34-7.37)
[2020-02-23 09:22] LABS: Magnesium, Blood 1.7 mg/dL (1.6-2.4)
[2020-02-23 09:25] LABS: Alanine Aminotransfer (ALT/SGP 24 U/L (12-78); Albumin, Blood 4.5 g/dL (3.4-5.0); Albumin/Globulin Ratio 1.2 (0.8-1.8); Alk Phos 106 U/L (50-136); Anion Gap 24 mmol/L (6-16); Aspartate Aminotrans (AST/SGOT 12 U/L (12-37); Bilirubin, Total 0.6 mg/dL (0.1-1.0); Blood Urea Nitrogen 14 mg/dL (8-24); Bun/Creatinine Ratio 23.2 (12.0-20.0); CO2, Blood 5 mmol/L (21-32); Calcium, Blood 8.6 mg/dL (8.5-10.1); Chloride, Blood 102 mmol/L (98-108); Globulin, Blood 3.9 g/dL (2.2-4.0); Glomerular Filtration Rate >60 (60-); Glucose, Blood 334 mg/dL (70-99); Potassium, Blood 4.3 mmol/L (3.5-5.5); Sodium, Blood 131 mmol/L (136-145); Total Protein, Blood 8.4 g/dL (6.4-8.2)
[2020-02-23 09:37] LABS: Beta-hydroxybutyrate 101.5 mg/dL (0.2-2.8)
--- NOTE | 2020-02-23 12:00 | NUR ---
ASSUMED CARE PT. ARRIVES FROM ER ABLE TO TRANSFER SELF TO ICU BED. ALERT AN ORIENTED. CHEEKS FLUSHED. PT. CURRENTLY ON RA. VSS UPON ARRIVAL. PT REPORTS HE LEFT AMA LAST NIGHT AND STARTED FEELING BAD AGAIN THIS AM. PT. DENIES ANY CHEST PAIN OR PRESSURE. [place], DENIES PAIN. VOIDS USING THE URINAL. BG CHECKED UPON ARRIVAL. CALL TO DR. POND TO START D5 0.45% NS. CALL LIGHT IN REACH. VSS.
[2020-02-23 15:29] LABS: Blood Urea Nitrogen 11 mg/dL (8-24); Bun/Creatinine Ratio 15.8 (12.0-20.0); Calcium, Blood 7.8 mg/dL (8.5-10.1); Chloride, Blood 111 mmol/L (98-108); Glomerular Filtration Rate >60 (60-); Glucose, Blood 220 mg/dL (70-99); Potassium, Blood 3.9 mmol/L (3.5-5.5); Sodium, Blood 136 mmol/L (136-145)
[2020-02-23 15:31] LABS: Anion Gap 16 mmol/L (6-16); CO2, Blood 9 mmol/L (21-32)
--- NOTE | 2020-02-23 18:04 | NUR ---
SHIFT SUMMARY PT. REMAINS ON INSULIN AND D5 45% SALINE. PT. REPORTS HE IS FEELING BETTER, ICE CHIPS AT BEDSIDE. INSULIN TITRATED PER BG T/O DAY. PT INDEPENDENT IN ROOM. CALL LIGHT IN REACH. VSS
[2020-02-23 19:34] LABS: Anion Gap 10 mmol/L (6-16); Blood Urea Nitrogen 10 mg/dL (8-24); Bun/Creatinine Ratio 18.4 (12.0-20.0); CO2, Blood 15 mmol/L (21-32); Calcium, Blood 7.9 mg/dL (8.5-10.1); Chloride, Blood 111 mmol/L (98-108); Creatinine, Blood 0.54 mg/dL (0.60-1.20); Glomerular Filtration Rate >60 (60-); Glucose, Blood 167 mg/dL (70-99); Potassium, Blood 3.4 mmol/L (3.5-5.5); Sodium, Blood 136 mmol/L (136-145)
--- NOTE | 2020-02-23 21:00 | NUR ---
ASSUMPTION OF CARE PT RESTING IN BED, AROUSES TO VERBAL STIMULI, A&O x4, PT ON RA WITH O2 SATURATIONS>90%. MONITOR SHOWS SINUS RHYTHM HR 70'S-105, BP STABLE, PT AFEBRILE. INSULIN GTT @ 2 AND D5 1/2NS @ 150, SEE FLOWSHEET FOR TITRATIONS. PT REPORTS BEING HUNGRY AND REQUESTS FOOD, EXPLAINED NPO STATUS UNTIL LABS WNL, PT VERBALIZES UNDERSTANDING. PT DENIES NAUSEA OR STOMACH PAIN AT THIS TIME. PT MOVES ALL EXTREMETIES AND REPOSITIONS SELF IN BED WITH EASE. CALL LIGHT WITHIN REACH, PT USES APPROPRIATELY.
[2020-02-23 23:27] LABS: Anion Gap 10 mmol/L (6-16); Blood Urea Nitrogen 9 mg/dL (8-24); Bun/Creatinine Ratio 14.3 (12.0-20.0); CO2, Blood 18 mmol/L (21-32); Calcium, Blood 8.2 mg/dL (8.5-10.1); Chloride, Blood 110 mmol/L (98-108); Creatinine, Blood 0.63 mg/dL (0.60-1.20); Glomerular Filtration Rate >60 (60-); Glucose, Blood 157 mg/dL (70-99); Potassium, Blood 3.5 mmol/L (3.5-5.5); Sodium, Blood 138 mmol/L (136-145)
--- NOTE | 2020-02-24 00:30 | NUR ---
MIDSHIFT ASSESSMENT PT MORE ALERT IN BED, SOCIALIZING WITH STAFF MORE, DISCUSSING CURRENT LIFE SITUATION (JOB, OUTPT MANAGEMENT OF DM1, ETC.), PT PLEASANT AND COOPERATIVE, DENIES ANY NEEDS AT THIS TIME. VSS. INSULIN AND D5 1/2 NS GTT CONTINUE TO INFUSE.
[2020-02-24 04:10] LABS: Anion Gap 9 mmol/L (6-16); Blood Urea Nitrogen 7 mg/dL (8-24); Bun/Creatinine Ratio 12.4 (12.0-20.0); CO2, Blood 18 mmol/L (21-32); Chloride, Blood 111 mmol/L (98-108); Creatinine, Blood 0.57 mg/dL (0.60-1.20); Glomerular Filtration Rate >60 (60-); Glucose, Blood 142 mg/dL (70-99); Sodium, Blood 138 mmol/L (136-145)
--- NOTE | 2020-02-24 04:23 | NUR ---
MORNING LABS CALL PLACED TO DR GRIFFIN REGARDING MORNING LABS, ORDER FOR 40meq KCL IV, OKAY TO ADVANCE DIET TO CLEAR LIQUIDS AND CHANGE CBG TO Q2H, REPEAT BMP FOR 0800.
--- NOTE | 2020-02-24 07:00 | NUR ---
SHIFT SUMMARY NO ACUTE CHANGES THIS SHIFT. PT RESTS IN BED, REMAINS AROUSABLE TO VERBAL STIMULI AND ORIENTED x4. NO CHANGES TO INSULIN AND D5 1/2NS GTT RATES, CBG STABLE 140'S-180'S. ADVANCED DIET TO CLEAR LIQUIDS, PT TOLERATING WELL, DENIES NAUSEA OR ABD PAIN. VSS.
--- NOTE | 2020-02-24 07:59 | NUR ---
ASSUMED CARE BEDSIDE REPORT RECIEVED. PT IS AWAKE, ALERT, AND ORIENTED. PT SITTING UP IN BED LOOKING AT PHONE. PT DENIES NAUSEA OR DISCOMFORT. VITAL SIGNS STABLE. PT ON ROOM AIR. D5 1/2 NS INFUSING AT 150 ML/HR, INSULIN AT 2 UNITS/HR, AND NS TKO. PT WITH URINAL AT BEDSIDE TO VOID. WILL CONTINUE TO MONITOR.
[2020-02-24 08:51] LABS: Anion Gap 7 mmol/L (6-16); Blood Urea Nitrogen 7 mg/dL (8-24); Bun/Creatinine Ratio 12.4 (12.0-20.0); CO2, Blood 20 mmol/L (21-32); Calcium, Blood 8.4 mg/dL (8.5-10.1); Chloride, Blood 109 mmol/L (98-108); Creatinine, Blood 0.56 mg/dL (0.60-1.20); Glomerular Filtration Rate >60 (60-); Glucose, Blood 196 mg/dL (70-99); Sodium, Blood 136 mmol/L (136-145)
--- NOTE | 2020-02-24 09:54 | NUR ---
ASSUMED CARE RECEIVED REPORT FROM PAOLO PRECIADO. PT IS LYING IN BED ALERT AND ORIENTED X 4. HE IS ON INSULIN GTTP AT 5 UNITS/HR. D5-1/2NS INFUSING AT 150 ML/HR. BED IS LOW AND LOCKED. CALL LIGHT WITHIN REACH.
--- NOTE | 2020-02-24 10:41 | NUR ---
UPDATE 1030: 35 UNITS LANTUS GIVEN SC. WILL RECHECK SUGAR AT 1130 AND DETERMINE IF INSULIN GTTP CAN BE TURNED OFF. WILL ALSO GIVE SLIDING SCALE HUMALOG AND LUNCH. DR. PORTER STILL WANTS FLUIDS TO BE INFUSING SO WHEN THE INSULIN GTTP IS TURNED OFF WE WILL SWITCH D5-1/2NS TO 0.9NS. BED LOW AND LOCKED. CALL LIGHT WITHIN REACH.
--- NOTE | 2020-02-24 11:53 | NUR ---
UPDATE 1130 SUGAR WAS 183. INSULIN GTTP OFF, 4 UNITS HUMALOG GIVEN PER SLIDING SCALE. PT CURRENTLY EATING LUNCH. D5-1/2 NS ALSO TURNED OFF, 0.9NS INFUSING AT 150 ML/HR INSTEAD.
[2020-02-24 18:02] LABS: Albumin, Blood 3.3 g/dL (3.4-5.0); Anion Gap 6 mmol/L (6-16); Blood Urea Nitrogen 4 mg/dL (8-24); Bun/Creatinine Ratio 9.3 (12.0-20.0); CO2, Blood 24 mmol/L (21-32); Calcium, Blood 8.2 mg/dL (8.5-10.1); Chloride, Blood 109 mmol/L (98-108); Creatinine, Blood 0.43 mg/dL (0.60-1.20); Glomerular Filtration Rate >60 (60-); Glucose, Blood 154 mg/dL (70-99); Magnesium, Blood 1.8 mg/dL (1.6-2.4); Phosphorus, Blood 1.2 mg/dL (2.5-4.9); Potassium, Blood 3.1 mmol/L (3.5-5.5); Sodium, Blood 139 mmol/L (136-145)
[2020-02-24] MEDS ORDERED: SODIUM PHOSPHA100 GM PO (18:43)
--- NOTE | 2020-02-24 19:05 | NUR ---
PT STABLE AT DISCHARGE, JUST ANXIOUS TO LEAVE. I REMOVED HIS IVs AND GAVE HIM SOME DISCHARGE EDUCATION. WE DISCUSSED MAKING A FOLLOW UP APT WITH PCP, AND TO [employer] SALESPERSON PRESCRIPTION AT HIS PHARMACY (I LEFT A MESSAGE WITH THEIR ANSWERING SERVICES). PT LEFT AT 1905
== END 2020-02-24 19:00 | disposition home or self-care (01) | DRG 638 ==
LOC: ER 08:29 → ICUW 11:40
PROVIDERS: Emergency Medicine; Internal Medicine; Nurse Practitioner Acute Care; ADMIT Internal Medicine
DX: E10.10 Type 1 diabetes mellitus with ketoacidosis without coma (principal); B37.49 Other urogenital candidiasis; E87.1 Hypo-osmolality and hyponatremia; E86.0 Dehydration; E87.6 Hypokalemia; E83.39 Other disorders of phosphorus metabolism; Z79.4 Long term (current) use of insulin; Z91.14 Patient's other noncompliance with medication regimen
CPT/HCPCS: 36415; 80048; 80053; 80069; 82010; 82803; 82947; 83036; 83735; 85025; 93005; 93010; 96361; 96374; 96375; 99285-25; A9270-GY; J0780; J1815; J2060; J3480; J7030; J7042; J7050

== ENCOUNTER 2020-05-28 08:44 | Inpatient (IN) | payer OTHER ==
[~2020-05-28] VITALS: Ht 172.7 cm; Wt 63.5 kg
[~2020-05-28 08:44] MED LIST changes: +SODIUM PHOSPHA100 GM PO
[2020-05-28 09:30] LABS: BASOPHILS ABSOLUTE AUTO 0.09 K/mm3 (0.00-0.23); BASOPHILS PERCENT AUTO 1 % (0-2); EOSINOPHILS PERCENT AUTO 0 % (0-6); Hematocrit 50.7 % (37.0-53.0); Hemoglobin 17.4 g/dL (13.5-17.5); IMMATURE GRAN PERCENT AUTO 1 % (0-1); LYMPHOCYTES ABSOLUTE AUTO 1.19 K/mm3 (0.84-5.20); LYMPHOCYTES PERCENT AUTO 12 % (21-46); MONOCYTES ABSOLUTE AUTO 0.56 K/mm3 (0.16-1.47); MONOCYTES PERCENT AUTO 6 % (4-13); Mean Corpuscular HGB Conc 34.3 g/dL (31.5-36.5); Mean Corpuscular Volume 99 fL (80-100); Mean Platelet Volume 9.1 fL (9.1-12.4); NEUTROPHILS ABSOLUTE AUTO 7.73 K/mm3 (1.96-9.15); NEUTROPHILS PERCENT AUTO 80 % (41-73); Platelet Count 364 K/mm3 (150-400); RDW Coefficient Variation 12.8 % (11.7-14.2); RDW Standard Deviation 46.5 fL (35.1-46.3); Red Blood Cell Count 5.12 M/mm3 (4.30-5.90); White Blood Cell Count 9.67 K/mm3 (4.00-11.30)
[2020-05-28 09:50] LABS: Alanine Aminotransfer (ALT/SGP 29 U/L (12-78); Albumin, Blood 4.8 g/dL (3.4-5.0); Albumin/Globulin Ratio 1.2 (0.8-1.8); Alk Phos 108 U/L (50-136); Aspartate Aminotrans (AST/SGOT 20 U/L (12-37); Bilirubin, Total 0.5 mg/dL (0.1-1.0); Blood Urea Nitrogen 12 mg/dL (8-24); Bun/Creatinine Ratio 18.3 (12.0-20.0); Calcium, Blood 8.7 mg/dL (8.5-10.1); Chloride, Blood 102 mmol/L (98-108); Creatinine, Blood 0.66 mg/dL (0.60-1.20); Globulin, Blood 3.9 g/dL (2.2-4.0); Glomerular Filtration Rate >60 (60-); Glucose, Blood 333 mg/dL (70-99); Potassium, Blood 3.9 mmol/L (3.5-5.5); Sodium, Blood 134 mmol/L (136-145); Total Protein, Blood 8.7 g/dL (6.4-8.2)
[2020-05-28 09:57] LABS: Anion Gap 23 mmol/L (6-16); CO2, Blood 9 mmol/L (21-32)
[2020-05-28 10:27] LABS: Base Excess Venous -26.4 mmol/L; Bicarbonate Venous 8.1 mmol/L (24.0-30.0); PCO2 Venous 27.2 mmHg (38-42); PO2 Venous 82.6 mmHg (38-42); pH Blood Venous 6.94 (7.34-7.37)
[2020-05-28 11:29] LABS: Influenza A, PCR Negative (NEGATIVE); SARS-Cov-2 (COVID-19) PCR, MMC Negative (NEGATIVE)
[2020-05-28 11:30] LABS: Influenza B, PCR Negative (NEGATIVE); Resp Syncytial Virus, PCR Negative (NEGATIVE)
[2020-05-28] MEDS ORDERED: LANTUS SOL100 UNIT/1 SC (12:20)
[2020-05-28] MEDS ORDERED: INSULIN LI100 UNIT/6 SC (12:21)
[2020-05-28 14:21] LABS: Blood Urea Nitrogen 12 mg/dL (8-24); Bun/Creatinine Ratio 24.4 (12.0-20.0); Calcium, Blood 7.5 mg/dL (8.5-10.1); Chloride, Blood 109 mmol/L (98-108); Creatinine, Blood 0.49 mg/dL (0.60-1.20); Glomerular Filtration Rate >60 (60-); Glucose, Blood 220 mg/dL (70-99); Sodium, Blood 135 mmol/L (136-145)
[2020-05-28 14:23] LABS: Anion Gap 21 mmol/L (6-16); CO2, Blood 5 mmol/L (21-32)
[2020-05-28 14:40] LABS: Base Excess Venous -27.9 mmol/L; Bicarbonate Venous 7.1 mmol/L (24.0-30.0); PCO2 Venous 25.5 mmHg (38-42)
[2020-05-28 18:12] LABS: Blood Urea Nitrogen 8 mg/dL (8-24); Bun/Creatinine Ratio 15.7 (12.0-20.0); Chloride, Blood 110 mmol/L (98-108); Creatinine, Blood 0.51 mg/dL (0.60-1.20); Glomerular Filtration Rate >60 (60-); Glucose, Blood 170 mg/dL (70-99); Potassium, Blood 3.5 mmol/L (3.5-5.5); Sodium, Blood 134 mmol/L (136-145)
[2020-05-28 18:13] LABS: Anion Gap 19 mmol/L (6-16); CO2, Blood 5 mmol/L (21-32)
--- NOTE | 2020-05-28 18:32 | NUR ---
SHIFT SUMMARY: PT CO2 HAS CONTINUED TO BE LOW. DR HERNANDEZ HAS BEEN CALLED WITH CRITICAL VALUES AND ORDERS FOR FLUIDS RECEIVED. DENIES NEED FOR LR AND STATES THERE IS MORE CHLORIDE IN LR THAN IN NS. PT INUSLIN IS CURRENTLY AT 5 UNITS/HR AND HAS NOW BEEN ORDERED A FOOD TRAY. PT C/O IV IN THE AC ON HIS L ARM, UNIT RN ATTEMPTED TO PLACE A POWER GLIDE AND WAS UNSESSFULL PT BEGAN YELLING IN PAIN AND STATES HIS ARM "CRAMPED UP". NO NEW IVS PLACED. VSS T/O THE SHIFT WILL CONTINUE TO MONIOTOR AND REPORT TO ONCOMING RN.
--- NOTE | 2020-05-28 20:00 | NUR ---
ASSUMED CARE OF PT AT 1915. REPORT RECEIVED AT BEDSIDE. PT PRESENTS IN BED. ALERT AND ORIENTED. INSULIN DRIP AT 5 UNITS PER HOUR. WILL CONTINUE WITH Q 1-2 HOUR BLOOD GLUCOSE CHECKS. PT HAS EATEN HIS DINNER. TEACHING DONE ON PLAN OF CARE FOR THIS NIGHT. WILL REVIEW CHART AND PLAN OF CARE FOR THIS PT.
[2020-05-28 21:34] LABS: Anion Gap 11 mmol/L (6-16); Blood Urea Nitrogen 8 mg/dL (8-24); Bun/Creatinine Ratio 13.7 (12.0-20.0); CO2, Blood 15 mmol/L (21-32); Calcium, Blood 7.5 mg/dL (8.5-10.1); Chloride, Blood 110 mmol/L (98-108); Creatinine, Blood 0.58 mg/dL (0.60-1.20); Glomerular Filtration Rate >60 (60-); Glucose, Blood 317 mg/dL (70-99); Potassium, Blood 3.4 mmol/L (3.5-5.5); Sodium, Blood 136 mmol/L (136-145)
--- NOTE | 2020-05-29 01:00 | NUR ---
PT NEEDED TO HAVE INSULIN DRIP INCREASED TO 7 UNITS PER HOUR SECONDARY TO BLOOD GLUCOSE LEVELS ELEVATING OVER 300. TEACHING DONE.
[2020-05-29 03:38] LABS: BASOPHILS ABSOLUTE AUTO 0.03 K/mm3 (0.00-0.23); BASOPHILS PERCENT AUTO 0 % (0-2); EOSINOPHILS ABSOLUTE AUTO 0.03 K/mm3 (0.00-0.68); EOSINOPHILS PERCENT AUTO 0 % (0-6); Hematocrit 38.8 % (37.0-53.0); Hemoglobin 14.1 g/dL (13.5-17.5); IMMATURE GRAN ABSOLUTE AUTO 0.06 K/mm3 (0.00-0.10); IMMATURE GRAN PERCENT AUTO 1 % (0-1); LYMPHOCYTES ABSOLUTE AUTO 2.02 K/mm3 (0.84-5.20); LYMPHOCYTES PERCENT AUTO 23 % (21-46); MONOCYTES ABSOLUTE AUTO 1.17 K/mm3 (0.16-1.47); MONOCYTES PERCENT AUTO 13 % (4-13); Mean Corpuscular HGB 33.7 pg (26.0-34.0); Mean Corpuscular HGB Conc 36.3 g/dL (31.5-36.5); Mean Corpuscular Volume 93 fL (80-100); Mean Platelet Volume 8.7 fL (9.1-12.4); NEUTROPHILS ABSOLUTE AUTO 5.42 K/mm3 (1.96-9.15); NEUTROPHILS PERCENT AUTO 62 % (41-73); Platelet Count 288 K/mm3 (150-400); RDW Coefficient Variation 12.7 % (11.7-14.2); RDW Standard Deviation 42.8 fL (35.1-46.3); Red Blood Cell Count 4.19 M/mm3 (4.30-5.90); White Blood Cell Count 8.73 K/mm3 (4.00-11.30)
[2020-05-29 03:56] LABS: Anion Gap 7 mmol/L (6-16); Blood Urea Nitrogen 8 mg/dL (8-24); Bun/Creatinine Ratio 16.9 (12.0-20.0); CO2, Blood 18 mmol/L (21-32); Calcium, Blood 8.3 mg/dL (8.5-10.1); Chloride, Blood 114 mmol/L (98-108); Creatinine, Blood 0.47 mg/dL (0.60-1.20); Glomerular Filtration Rate >60 (60-); Glucose, Blood 124 mg/dL (70-99); Sodium, Blood 139 mmol/L (136-145)
--- NOTE | 2020-05-29 04:00 | NUR ---
HAVE BEEN ABLE TO TITRATE INSULIN DRIP DOWN TO 3 UNITS PER HOUR. PT VOICES UNDERSTANDING CONCERNING LOW SODIUM LEVEL AND NEED TO NOT DRINK MUCH WATER. PT ACCEPTS [facility]. CALL MADE TO BREE LOZANO - HOSPITALIST. ORDERS RECEIVED. PT HAS COMPLAINT OF HIS "UVULA" BEING SWOLLEN. CEPACOL ORDERED. PENDING STREP TEST DONE EARLIER.
--- NOTE | 2020-05-29 06:25 | NUR ---
PT CONTINUES ON INSULIN DRIP WHEREAS HAS BEEN TITRATED DOWN TO 1 UNIT PER HOUR. DISCUSSED WITH PT TRANSISTION FROM INSULIN DRIP TO HIS ESTABILISHED LONG ACTING INSULIN. PT VOICES UNDERSTANDING. PT HAS VOIDED Q.S. PT TEACHING DONE ON LOWER SODIUM LEVEL AND TAKING SMALLER AMOUNTS OF WATER AND CHOOSING DIFFERENT FLUIDS. WILL CONTINUE TO MONITOR PT, AND WILL REPORT OFF TO ONCOMING RN.
--- NOTE | 2020-05-29 08:47 | NUR ---
AM NOTE: PATIENT A/OX3. DENIES PAIN. UVULA NOTED TO BE SWOLLEN, PATIENT STATES THAT IT DOES NOT AFFECT HIS ABILITY TO SWALLOW OR BREATHE AT THIS TIME. STATES IT WAS MAKING HIM GAG AND THROW UP BUT HE DENIES NAUSEA AT THIS TIME. LUNGS CLEAR. INSULIN INFUSING AT 1. DISCUSSED POC FOR SHIFT. CALL LIGHT IN REACH.
[2020-05-29 08:59] LABS: Anion Gap 12 mmol/L (6-16); Blood Urea Nitrogen 9 mg/dL (8-24); Bun/Creatinine Ratio 20.5 (12.0-20.0); CO2, Blood 14 mmol/L (21-32); Chloride, Blood 110 mmol/L (98-108); Creatinine, Blood 0.44 mg/dL (0.60-1.20); Glomerular Filtration Rate >60 (60-); Glucose, Blood 194 mg/dL (70-99); Potassium, Blood 3.2 mmol/L (3.5-5.5); Sodium, Blood 136 mmol/L (136-145)
--- NOTE | 2020-05-29 09:31 | NUR ---
CALLED DR. POND. READ HER BMP RESULTS. D51/2NS INFUSING AND INSULIN INFUSING AT 1. ORDERS RECEIVED TO DISCONTINUE D51/2NS. ORDERS RECEIVED FOR D5LR AT 125 MLS/HR, POTASSIUM CHLORIDE 60 MEQ IV X1 NOW, AND RECHECK BMP IN 4 HOURS. CONTINUE INSULIN DRIP. ORDERS READ BACK AND VERIFIED.
--- NOTE | 2020-05-29 10:00 | NUR ---
CBG 319. PATIENT ATE BREAKFAST. NOTIFIED ARNULFO MOREIRA RN. SHE INCREASED INSULIN DRIP TO 3. WILL RECHECK CBG IN 1 HR.
--- NOTE | 2020-05-29 10:35 | NUR ---
PATIENT STATES THAT HE DOES NOT WANT TO BE IN THE HOSPITAL ANYMORE. STATES "I CAN'T FUCKING STAY IN THIS PLACE ANY LONGER." SAYING THAT HE WANTS TO SIGN HIMSELF OUT. NOTIFIED HIM OF THE PLAN FOR REPEAT LABS AT 1330, STATES THAT HE WILL STAY AT LEAST UNTIL THEM AND THEN SEE HOW HE FEELS. WEB ANALYTICS SPECIALIST NOTIFIED.
--- NOTE | 2020-05-29 10:40 | NUR ---
MED UPDATE: CALLED TO VERIFY MEDS WITH PHARMACIST. SHE SAID PATIENT WOULD NOT BE ABLE TO HAVE D5LR AND POTASSIUM INFUSING TOGETHER IT WAS OVER THE POTASSIUM LIMIT. NOTIFIED DR. POND. DR. POND THEN CHANGED IV FLUIDS TO D5NS AT 125 MLS/HR. THEN DR. POND CAME TO THE FLOOR. NOTIFIED HER PATIENT HAD BEEN EATING AND ATE BREAKFAST. DR. POND CHANGED POTASSIUM TO KCL 60 MEQ PO INSTEAD OF IV. SHE ALSO CHANGED IV FLUIDS TO D5LR AT 125 MLS/HR. CONTINUE INSULIN DRIP.
--- NOTE | 2020-05-29 10:45 | NUR ---
DR. POND AT BEDSIDE. DISCUSSED POC. PLAN IS FOR REPEAT BMP AT 1330, CALL HER WITH RESULTS. DR. POND DISCUSSED THE RISK OF LEAVING THE HOSPITAL AT THIS TIME. PATIENT AGREEABLE TO STAY AT LEAST UNTIL RESULTS FROM 1330. SHE LOOKED AT PATIENT'S UVULA, IT IS STILL SWOLLEN, STATES TO GIVE TYLENOL WHICH WILL HELP WITH THE SWELLING.
[2020-05-29 14:28] LABS: Anion Gap 6 mmol/L (6-16); Blood Urea Nitrogen 8 mg/dL (8-24); Bun/Creatinine Ratio 17.3 (12.0-20.0); CO2, Blood 21 mmol/L (21-32); Calcium, Blood 8.1 mg/dL (8.5-10.1); Chloride, Blood 112 mmol/L (98-108); Creatinine, Blood 0.46 mg/dL (0.60-1.20); Glomerular Filtration Rate >60 (60-); Glucose, Blood 288 mg/dL (70-99); Potassium, Blood 3.4 mmol/L (3.5-5.5); Sodium, Blood 139 mmol/L (136-145)
--- NOTE | 2020-05-29 15:06 | NUR ---
CALLED DR. POND AND NOTIFIED HER OF BMP RESULTS. SHE HAD SEEN THEM. SHE SAID SHE WAS GOING TO ORDER LANTUS 40 UNITS SC TO BE GIVEN AT 1600. TURN DOWN D5LR TO 50 MLS/HR. TITRATE DOWN INSULIN DRIP AND TURN OFF 90 MINUTES AFTER GIVING LANTUS. TURN OF D5LR WHEN INSULIN DRIP IS TURNED OFF. SHE IS ORDERING LOW SLIDING SCALE INSULIN AND POTASSIUM. STATES THAT SHE WILL REVIEW HIS BLOOD SUGARS AT DINNER TIME. PATIENT MIGHT BE ABLE TO GO HOME AT THIS TIME, BUT HE MAY NEED TO WAIT UNTIL THE AM, WILL NOTIFY PATIENT.
--- NOTE | 2020-05-29 16:45 | NUR ---
LAST CBG 100. DECREASED INSULIN TO 2 PER ARNULFO LABORER SALVAGE. GAVE PATIENT A SNACK.
--- NOTE | 2020-05-29 17:49 | NUR ---
CALLED DR. POND. NOTIFIED HER PATIENT'S LAST CBG WAS 117 AT 1730, THEN THE INSULIN AND THE D5LR WAS TURNED OFF. LANTUS 40 UNITS WAS GIVEN AT 1600. PATIENT WANTS TO GO HOME TONIGHT. DR. POND ORDERED TO RECHECK CBG AT 1830 AND CALL HER WITH THE RESULTS.
[2020-05-29] MEDS ORDERED: INSULANPEN SC (18:20)
[2020-05-29] MEDS ORDERED: ACET325 PO (18:21)
--- NOTE | 2020-05-29 18:41 | NUR ---
CALLED DR. POND AND NOTIFIED HER PATIENT'S 1830 CBG WAS 207. SHE ORDERED OK TO DISCHARGE PATIENT HOME.
--- NOTE | 2020-05-29 19:14 | NUR ---
DISCHARGE: PATIENT DISCHARGED HOME AT 190. HIS DAD CAME TO TAKE HIM HOME. ESCORTED OUT VIA WHEELCHAIR BY ARRON ROMERO. BOTH IVS D/C'D. REVIEWED DISCHARGE INSTRUCTIONS AND DISCHARGE MEDICATIONS WITH PATIENT, COPIES GIVEN TO TAKE HOME, NO FURTHER QUESTIONS AT TIME OF DISCHARGE. PRESCRIPTIONS FAXED TO [facility] IN [place]. 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 NO FURTHER QUESTIONS AT TIME OF DISCHARGE.
== END 2020-05-29 19:08 | disposition home or self-care (01) | DRG 638 ==
LOC: ER 08:44 → ICUW 12:01 → ICUE 12:01
PROVIDERS: Emergency Medicine; Internal Medicine; Nurse Practitioner Acute Care; Physician Assistant; ADMIT Internal Medicine
DX: E10.10 Type 1 diabetes mellitus with ketoacidosis without coma (principal); K12.2 Cellulitis and abscess of mouth; E87.1 Hypo-osmolality and hyponatremia; B37.42 Candidal balanitis; E87.6 Hypokalemia; Z20.828 Contact with and (suspected) exposure to other viral communicable diseases; K21.9 Gastro-esophageal reflux disease without esophagitis
CPT/HCPCS: 0241U; 36415; 80048; 80053; 81000; 82803; 82947; 83690; 85025; 86308; 87081; 87430; 96361; 96365; 96375; 99284-25; A9270; A9270-GY; G0008; J1100; J1650; J1815; J2405; J3480; J7030; J7042; J7120; Q2038

== ENCOUNTER 2020-06-10 22:20 | Inpatient (IN) | payer OTHER ==
[~2020-06-10] VITALS: Ht 175.3 cm; Wt 61.4 kg
[~2020-06-10 22:20] MED LIST changes: +ACET325 PO; +INSULANPEN SC; +INSULIN LI100 UNIT/6 SC
[2020-06-10 22:51] LABS: BASOPHILS PERCENT AUTO 1 % (0-2); EOSINOPHILS ABSOLUTE AUTO 0.05 K/mm3 (0.00-0.68); EOSINOPHILS PERCENT AUTO 0 % (0-6); Hemoglobin 16.4 g/dL (13.5-17.5); IMMATURE GRAN ABSOLUTE AUTO 0.46 K/mm3 (0.00-0.10); IMMATURE GRAN PERCENT AUTO 3 % (0-1); LYMPHOCYTES ABSOLUTE AUTO 2.52 K/mm3 (0.84-5.20); LYMPHOCYTES PERCENT AUTO 14 % (21-46); MONOCYTES PERCENT AUTO 8 % (4-13); Mean Corpuscular HGB 33.3 pg (26.0-34.0); Mean Corpuscular HGB Conc 33.5 g/dL (31.5-36.5); Mean Corpuscular Volume 100 fL (80-100); Mean Platelet Volume 8.8 fL (9.1-12.4); NEUTROPHILS ABSOLUTE AUTO 13.93 K/mm3 (1.96-9.15); NEUTROPHILS PERCENT AUTO 75 % (41-73); Platelet Count 400 K/mm3 (150-400); RDW Coefficient Variation 12.8 % (11.7-14.2); RDW Standard Deviation 47.8 fL (35.1-46.3); Red Blood Cell Count 4.92 M/mm3 (4.30-5.90); White Blood Cell Count 18.46 K/mm3 (4.00-11.30)
[2020-06-10 23:19] LABS: Magnesium, Blood 2.1 mg/dL (1.6-2.4)
[2020-06-10 23:31] LABS: Alanine Aminotransfer (ALT/SGP 26 U/L (12-78); Albumin, Blood 4.3 g/dL (3.4-5.0); Alk Phos 110 U/L (50-136); Anion Gap 24 mmol/L (6-16); Aspartate Aminotrans (AST/SGOT 11 U/L (12-37); Bilirubin, Total 0.5 mg/dL (0.1-1.0); Blood Urea Nitrogen 11 mg/dL (8-24); Bun/Creatinine Ratio 18.1 (12.0-20.0); CO2, Blood 5 mmol/L (21-32); Calcium, Blood 8.6 mg/dL (8.5-10.1); Chloride, Blood 104 mmol/L (98-108); Creatinine, Blood 0.61 mg/dL (0.60-1.20); Globulin, Blood 4.1 g/dL (2.2-4.0); Glomerular Filtration Rate >60 (60-); Glucose, Blood 354 mg/dL (70-99); Potassium, Blood 3.7 mmol/L (3.5-5.5); Sodium, Blood 133 mmol/L (136-145); Total Protein, Blood 8.4 g/dL (6.4-8.2)
[2020-06-10 23:59] LABS: Source, Urine Clean Catch
[2020-06-11 00:07] LABS: Bilirubin, Urine Neg (Neg); Blood, Urine 1+ (Neg); Glucose Qualitative, Urine 4+ (Neg); Ketones, Urine 4+ (Neg); Leukocyte Esterase, Urine 1+ (Neg); Nitrite, Urine Neg (Neg); Protein, Urine 2+ (Neg); Specific Gravity, Urine 1.025 (1.003-1.022); Urobilinogen, Urine NORM (Normal)
[2020-06-11 00:18] LABS: Appearance, Urine Clear (Clear); Color, Urine Yellow (P-Yellow)
[2020-06-11 00:19] LABS: Amorphous Light (0-Heavy); Bacteria Rare /hpf; Granular Casts 0-2 /lpf (0); Squamous Epithelial Cells Few /hpf (Few); White Blood Cells, Urine 0-2 /hpf (0-5)
--- NOTE | 2020-06-11 00:45 | NUR ---
PATIENT ARRIVED TO ICU 5 FROM ED VIA GURNEY. PATIENT AWAKENS TO VERBAL STIMULI, FALLING BACK TO SLEEP WHILE MID CONVERSATION. PATIENT RECEIVED ATIVAN BEFORE LEAVING ED. RESP RATE 30'S AT REST. INSULIN DRIP INFUSING 2 UNITS/HR. PATIENT TRANSFERRED TO ICU BED USING SLIDER SHEET AND PLACED ON ICU MONITORS.
--- NOTE | 2020-06-11 04:32 | NUR ---
PATIENT AWAKE C/O FEELING IF HIS UVULA IS HITTING HIS TONGUE. BACK OF THROAT IS SWOLLEN AND RED, AND UVULA APPEARS SWOLLEN ALSO. PATIENT REQUESTING TYLENOL FOR THROAT PAIN. PATIENT EATING ICE WITHOUT DIFFICULTY.
[2020-06-11 05:20] LABS: Albumin, Blood 3.8 g/dL (3.4-5.0); Anion Gap 22 mmol/L (6-16); Blood Urea Nitrogen 10 mg/dL (8-24); CO2, Blood 5 mmol/L (21-32); Calcium, Blood 8.1 mg/dL (8.5-10.1); Chloride, Blood 110 mmol/L (98-108); Creatinine, Blood 0.63 mg/dL (0.60-1.20); Glomerular Filtration Rate >60 (60-); Glucose, Blood 216 mg/dL (70-99); Phosphorus, Blood 2.2 mg/dL (2.5-4.9); Potassium, Blood 3.2 mmol/L (3.5-5.5); Sodium, Blood 137 mmol/L (136-145)
--- NOTE | 2020-06-11 07:11 | NUR ---
SUMMARY PATIENT SLEEPING OFF AND ON T/O NIGHT. INSULIN DRIP CONTINUES AT 2 UNITS/HR. D5 1/2NS AT 100/HR STARTED AND BICARB DRIP FINISHING. BICARB PUSH GIVEN AND K-RIDER STARTED. PATIENT CONTINUES TO C/O SWELLING TO UVULA. ABLE TO SWALLOW TYLENOL WITHOUT DIFFICULTY AND ABLE TO DRINK WATER AND ICE CHIPS WITHOUT DIFFICULTY. UP TO SIDE OF BED TO VOID SEVERAL TIMES WITH 1 PERSON ASSIST.
--- NOTE | 2020-06-11 08:20 | NUR ---
ASSUMED CARE RECEIVED REPORT FROM PAOLO GOLDSTEIN. PT IS LYING DOWN IN BED, SLEEPING. INSULIN IS AT 2 UNITS/HOUR (VERIFIED WITH ANGELITA), BICARB IS INFUSING AT 150 ML/HR, AND D5-1/2NS INFUSING AT 100 ML/HR WITH A K-RIDER PB. NC IN SINUS TO SINUS TACH, RATE 90-100s. STABLE BP (MAP > 65), SPO2 (98-100%), AND RR (16-22). AFEBRILE. BED LOW AND LOCKED. CALL LIGHT WITHIN REACH.
--- NOTE | 2020-06-11 10:00 | NUR ---
UPDATE PT C/O SWELLING IN HIS UVULA/BACK OF THROAT. UVULA IS NOT VERY RED, BUT IS JUST A LITTLE. IT IS VERY UNCOMFORTABLE FOR HIM, BUT HE IS UNDER NO RESPIRATORY DISTRESS. DR. MCGILL SUGGESTS "GURGLING" WARM, SALTY WATER NEEDED FOR RELIEF. PT IS ANXIOUS, AND MILDLY AGITATED R/T DISCOMFORT. WILL CONTINUE TO MONITOR.
[2020-06-11 11:20] LABS: Anion Gap 18 mmol/L (6-16); Blood Urea Nitrogen 8 mg/dL (8-24); Bun/Creatinine Ratio 14.4 (12.0-20.0); CO2, Blood 9 mmol/L (21-32); Chloride, Blood 111 mmol/L (98-108); Creatinine, Blood 0.55 mg/dL (0.60-1.20); Glomerular Filtration Rate >60 (60-); Glucose, Blood 214 mg/dL (70-99); Potassium, Blood 3.1 mmol/L (3.5-5.5); Sodium, Blood 138 mmol/L (136-145)
--- NOTE | 2020-06-11 17:15 | NUR ---
UPDATE PT CONTINUES TO C/O DISCOMFORT R/T SWOLLEN UVULA. CONTINUES TO BE SLIGHTLY RED, AND SWOLLEN UVULA THAT IS NOT DEVIATED FROM THE MIDLINE. PT IS STILL QUITE ANXIOUS AND MILDLY AGITATED BECAUSE OF IT. HE HAS SLEPT MAJORITY OF THE DAY, HOWEVER. WILL UPDATE DR. MCGILL. AND WILL CONTINUE TO MONITOR.
[2020-06-11 17:24] LABS: Anion Gap 14 mmol/L (6-16); Blood Urea Nitrogen 7 mg/dL (8-24); Bun/Creatinine Ratio 13.5 (12.0-20.0); CO2, Blood 11 mmol/L (21-32); Calcium, Blood 8.4 mg/dL (8.5-10.1); Chloride, Blood 110 mmol/L (98-108); Creatinine, Blood 0.52 mg/dL (0.60-1.20); Glomerular Filtration Rate >60 (60-); Glucose, Blood 143 mg/dL (70-99); Sodium, Blood 135 mmol/L (136-145)
--- NOTE | 2020-06-11 17:30 | NUR ---
ASSUMED CARE PT TOOK DECADRON AT 1524, AFTER HAVING NO RELIEF FROM "GURGLING" WARM, SALT WATER IN BACK OF THROAT T/O DAY. AT 1640 PT STATES "IT FEELS A LITTLE BETTER". HE RATED HIS DISCOMFORT ON A SCALE OF 1-10, AND WAS AT A 5-6/10 AT THE TIME. I ASKED HIM WHAT IT WAS EARLIER TODAY, WHEN IT WAS WORSE AND HE SAID "10/10". SOME IMPROVEMENT NOTED.
--- NOTE | 2020-06-11 18:38 | NUR ---
SHIFT SUMMARY PT CONTINUES TO HAVE SOME DISCOMFORT R/T SWELLING IN UVULA, BUT FEELS "BETTER THAN BEFORE". HE IS ON AN INSULIN GTTP AT 2 UNITS/HR, AND D5-1/2NS AT 100 ML/HR. HE IS HAVING ADEQUATE AMOUNTS OF URINE OUTPUT. POTASSIUM KEEPS COMING BACK LOW, 40 MEQ OF KCL GIVEN PO THIS LAST TIME. GAP IS NOW CLOSED (14), AND CO2 IS IMPROVING, BUT LOW (11). PT OVERALL LOOKS BETTER THIS EVENING, NOT LETHARGIC THIS MORNING/DAY. DR. MCGILL IS OKAY IF PT HAS SOME FOOD TONIGHT. DECADRON HAS HELPED WITH UVULA SWELLING. BED IS LOW AND LOCKED. CALL LIGHT WITHIN REACH.
--- NOTE | 2020-06-11 19:57 | NUR ---
ASSESSMENT/ASSUMED CARE PT SITTING UP IN BED AND COLORING. A&O. FOLLOWING INSTRUCTIONS. PEE PAIN OR DISCOMFORT AT THIS TIME STATES,"THE WORST PART ABOUT BEING HERE IS, IT IS BORING". LUNGS CLEAR ON ROOMAIR. RESP EVEN AND NONLABORED. PEE SOB OR COUGH. HEART RATE REGULAR, BP STABLE. NO EDEMA. MAEW, MOVING AND TURNING SELF IN BED AND UP IN ROOM ADLIB. BT+ ABD SOFT AND NONTENDER, DENIES N/V. IV 20G TO LEFT FOREARM WITH D5 1/2 AT 100 ML/HR, SITE CLEAR. IV 20G RIGHT AC WITH INSULIN AT 2 UNITS/HR AND NS AT 10 ML/HR, SITE CLEAR. BLOOD GLUCOSE 167, CONT INSULIN AT 2 UNITS/HR WILL RECHECK BLOOD GLUCOSE IN ONE HOUR. PT TALKING ON THE PHONE.
--- NOTE | 2020-06-11 20:45 | NUR ---
AMB PT UP WALKING AROUND IN UNIT DUE TO TINGLING TO FEET. PT STATES,"I DON'T HAVE THIS AT HOME BECAUSE I'M UP DOING STUFF". PT REQUESTING SCD'S GIVEN.
[2020-06-11 23:22] LABS: Anion Gap 11 mmol/L (6-16); Blood Urea Nitrogen 8 mg/dL (8-24); Bun/Creatinine Ratio 16.5 (12.0-20.0); CO2, Blood 17 mmol/L (21-32); Calcium, Blood 8.6 mg/dL (8.5-10.1); Chloride, Blood 107 mmol/L (98-108); Creatinine, Blood 0.48 mg/dL (0.60-1.20); Glomerular Filtration Rate >60 (60-); Glucose, Blood 208 mg/dL (70-99); Potassium, Blood 3.3 mmol/L (3.5-5.5); Sodium, Blood 135 mmol/L (136-145)
--- NOTE | 2020-06-12 00:22 | NUR ---
LABS LABS CALLED TO DR AMARAL, RECIEVED ORDER FOR KCL 40 MEQ PO TIMES ONE NOW.
[2020-06-12 05:02] LABS: Hematocrit 37.3 % (37.0-53.0); Hemoglobin 13.8 g/dL (13.5-17.5); Mean Corpuscular HGB 33.8 pg (26.0-34.0); Mean Corpuscular Volume 91 fL (80-100); Mean Platelet Volume 8.6 fL (9.1-12.4); Platelet Count 236 K/mm3 (150-400); RDW Coefficient Variation 12.7 % (11.7-14.2); RDW Standard Deviation 41.4 fL (35.1-46.3); Red Blood Cell Count 4.08 M/mm3 (4.30-5.90); White Blood Cell Count 6.02 K/mm3 (4.00-11.30)
[2020-06-12 05:20] LABS: Anion Gap 11 mmol/L (6-16); Blood Urea Nitrogen 8 mg/dL (8-24); Bun/Creatinine Ratio 15.8 (12.0-20.0); CO2, Blood 17 mmol/L (21-32); Calcium, Blood 8.9 mg/dL (8.5-10.1); Chloride, Blood 109 mmol/L (98-108); Creatinine, Blood 0.51 mg/dL (0.60-1.20); Glomerular Filtration Rate >60 (60-); Glucose, Blood 180 mg/dL (70-99); Sodium, Blood 137 mmol/L (136-145)
--- NOTE | 2020-06-12 06:46 | NUR ---
SHIFT SUMMARY PT AWAKE SITTING UP IN BED WATCHING TV AND EATING JELLO. DENIES PAIN OR DISCOMFORT. PT STATES,"I JUST WANT TO GO HOME. I MAY JUST LEAVE TODAY. I WANT TO EAT, I HAVE NOT HAD ANYTHING TO EAT IN 24 HRS". VSS. KCL IVP STARTED FOR POTASSIUM 3.0. INSULIN CURRENTLY AT 2 UNITS/HR. PT UP AD TOBY. REPORT TO ON COMING SHIFT
--- NOTE | 2020-06-12 08:02 | NUR ---
ASSUMED CARE RECEIVED REPORT FROM PAOLO CAVAZOS. PT IS AWAKE, ALERT, AND ORIENTED X 4 - LYING DOWN IN BED. INSULIN GTTP INFUSING 2 UNITS/HR, D5-1/2NS INFUSING AT 100 ML/HR. KCL INFUSING PB TO NS TKO. BED LOW AND LOCKED. CALL LIGHT WITHIN REACH. PT STATES HIS SWELLING HAS GONE DOWN, AND HE FEELS FINE THIS MORNING.
[2020-06-12 11:08] LABS: Anion Gap 9 mmol/L (6-16); Blood Urea Nitrogen 6 mg/dL (8-24); CO2, Blood 20 mmol/L (21-32); Calcium, Blood 8.6 mg/dL (8.5-10.1); Chloride, Blood 106 mmol/L (98-108); Glomerular Filtration Rate >60 (60-); Glucose, Blood 355 mg/dL (70-99); Potassium, Blood 3.3 mmol/L (3.5-5.5); Sodium, Blood 135 mmol/L (136-145)
--- NOTE | 2020-06-12 11:34 | NUR ---
UPDATE PT NO LONGER IN [facility], LABS HAVE NORMALIZED. LONG ACTING INSULIN ORDERED (40 UNITS SC NOW), AND A SHORT ACTING LISPRO PEN ORDERED FOR LOW SS SC BEFORE MEALS. VERIFIED WITH PT. POTASSIUM REMAINS ON THE LOW SIDE, EDUCATED PT TO LOOK FOR POTASSIUM-RICH FOODS FOR WHEN HE IS DISCHARGED. INSULIN GTTP IS TO BE TURNED OFF 1 HOUR AFTER LANTUS IS GIVEN, AND 3 HOURS AFTER THAT WE WILL DRAW A BMP TO ENSURE THAT HE CONTINUES TO BE OUT OF DKA, BEFORE DISCHARGING HIM. HE SAYS HE FEELS MUCH BETTER TODAY, AND HE DOESN'T EVEN NOTICE ANY SWELLING IN HIS UVULA, WHICH DOES LOOK LIKE IT HAS IMPROVED SINCE YESTERDAY - LESS SWELLING, LESS REDNESS. PT SUGAR INCREASED DUE TO PT EATING THIS MORNING, INSULIN GTTP TURNED UP A LITTLE JUST COVER SUGARS BEFORE SHORT ACTING WAS ORDERED. PT WAS ABLE TO TAKE A SHOWER, DELIVERY OF SHOPPING NEWS ASSISTED HIM. HE TOLERATED AMBULATION WELL AND IS INDEPENDENT. IVs WERE COVERED AND NO COMPLICATIONS OCCURED. HE WAS BACK TO HIS BED WITH NO ISSUES. SINUS RHYTHM, STABLE HR, AND BP. SPO2 STABLE. BED LOW AND LOCKED. WILL CONTINUE TO MONITOR.
[2020-06-12 15:52] LABS: Anion Gap 9 mmol/L (6-16); Blood Urea Nitrogen 8 mg/dL (8-24); CO2, Blood 22 mmol/L (21-32); Calcium, Blood 8.6 mg/dL (8.5-10.1); Chloride, Blood 107 mmol/L (98-108); Creatinine, Blood 0.47 mg/dL (0.60-1.20); Glomerular Filtration Rate >60 (60-); Glucose, Blood 269 mg/dL (70-99); Potassium, Blood 3.3 mmol/L (3.5-5.5); Sodium, Blood 138 mmol/L (136-145)
--- NOTE | 2020-06-12 17:03 | NUR ---
UPDATE PT DISCHARGED. 1550 LABS HAD NORMALIZED, (CO2 = 22; GAP = 8; K 3.3). PT GIVEN A NOW DOSE OF 40 MEQ OF PO KCL, PRIOR TO LEAVING. VITALS STABLE PRIOR TO BE TAKEN OFF TELLY, RATE IN THE 80s, MAP>65, RR 14-18, SPO2 98-100%, AND AFEBRILE. PT ANXIOUS TO LEAVE, AND STATES HE FEELS MUCH BETTER, MENTIONING THAT HE DOESN'T EVEN NOTICE HIS UVULA ANYMORE - WHICH VISUALLY LOOKS MUCH BETTER (NOT SWOLLEN, NOT RED). PT OUT OF ROOM AT 1705. EDUCATED PT ON COMING UP WITH WAYS TO PREVENT DKA, AND STRATEGIES TO MANAGE STRESS MORE EFFICIENTLY (PT STATES HE HAS BEEN GOING THROUGH HIGH LEVELS OF STRESS). PROVIDED EDUCATION.
== END 2020-06-12 17:00 | disposition home or self-care (01) | DRG 638 ==
LOC: ER 22:20 → ICUE 22:21 → ICUW 22:21 → ICUE 06-11 00:45
PROVIDERS: Emergency Medicine; Internal Medicine; ADMIT Internal Medicine
DX: E10.10 Type 1 diabetes mellitus with ketoacidosis without coma (principal); E87.2 Acidosis; E87.6 Hypokalemia; K13.79 Other lesions of oral mucosa; Z79.4 Long term (current) use of insulin
CPT/HCPCS: 36415; 71045; 80048; 80053; 80069; 81001; 82947; 83735; 84100; 85025; 85027; 87081; 87430; 93005; 93010; 96361; 96374; 96375; 99285-25; A9270; A9270-GY; C9113; J1650; J1815; J2060; J2405; J3480; J7030; J7042; J7050

== ENCOUNTER 2020-09-12 09:44 | Inpatient (IN) | payer OTHER ==
[~2020-09-12] VITALS: Ht 172.7 cm; Wt 61.3 kg
[~2020-09-12 09:44] MED LIST changes: -INSULANPEN SC; -INSULIN LI100 UNIT/6 SC
[2020-09-12 10:31] LABS: BASOPHILS ABSOLUTE AUTO 0.05 K/mm3 (0.00-0.23); BASOPHILS PERCENT AUTO 0 % (0-2); EOSINOPHILS PERCENT AUTO 0 % (0-6); Hematocrit 53.7 % (37.0-53.0); Hemoglobin 18.8 g/dL (13.5-17.5); IMMATURE GRAN ABSOLUTE AUTO 0.15 K/mm3 (0.00-0.10); IMMATURE GRAN PERCENT AUTO 1 % (0-1); LYMPHOCYTES ABSOLUTE AUTO 1.42 K/mm3 (0.84-5.20); LYMPHOCYTES PERCENT AUTO 12 % (21-46); MONOCYTES PERCENT AUTO 3 % (4-13); Mean Corpuscular HGB 33.6 pg (26.0-34.0); Mean Corpuscular Volume 96 fL (80-100); NEUTROPHILS ABSOLUTE AUTO 9.76 K/mm3 (1.96-9.15); NEUTROPHILS PERCENT AUTO 83 % (41-73); Platelet Count 511 K/mm3 (150-400); RDW Coefficient Variation 12.1 % (11.7-14.2); RDW Standard Deviation 43.4 fL (35.1-46.3); Red Blood Cell Count 5.59 M/mm3 (4.30-5.90); White Blood Cell Count 11.78 K/mm3 (4.00-11.30)
[2020-09-12 10:35] LABS: Base Excess Venous -24.2 mmol/L; Bicarbonate Venous 9.4 mmol/L (24.0-30.0); PCO2 Venous 26.9 mmHg (38-42); PO2 Venous 51.3 mmHg (38-42); pH Blood Venous 7.01 (7.34-7.37)
[2020-09-12 11:11] LABS: Alanine Aminotransfer (ALT/SGP 32 U/L (12-78); Albumin, Blood 5.2 g/dL (3.4-5.0); Albumin/Globulin Ratio 1.2 (0.8-1.8); Alk Phos 147 U/L (50-136); Anion Gap 24 mmol/L (6-16); Aspartate Aminotrans (AST/SGOT 15 U/L (12-37); Bilirubin, Total 0.6 mg/dL (0.1-1.0); Blood Urea Nitrogen 15 mg/dL (8-24); Bun/Creatinine Ratio 17.8 (12.0-20.0); CO2, Blood 7 mmol/L (21-32); Calcium, Blood 9.4 mg/dL (8.5-10.1); Chloride, Blood 97 mmol/L (98-108); Creatinine, Blood 0.84 mg/dL (0.60-1.20); Globulin, Blood 4.4 g/dL (2.2-4.0); Glomerular Filtration Rate >60 (60-); Glucose, Blood 394 mg/dL (70-99); Potassium, Blood 4.1 mmol/L (3.5-5.5); Sodium, Blood 128 mmol/L (136-145); Total Protein, Blood 9.6 g/dL (6.4-8.2)
[2020-09-12 11:35] LABS: Source, Urine Clean Catch
[2020-09-12 11:58] LABS: Appearance, Urine Clear (Clear); Bilirubin, Urine Neg (Neg); Blood, Urine 2+ (Neg); Color, Urine Yellow (P-Yellow); Glucose Qualitative, Urine 4+ (Neg); Ketones, Urine 4+ (Neg); Leukocyte Esterase, Urine 1+ (Neg); Nitrite, Urine Neg (Neg); Protein, Urine 3+ (Neg); Specific Gravity, Urine 1.025 (1.003-1.022); Urobilinogen, Urine NORM (Normal)
[2020-09-12 12:09] LABS: Bacteria Few /hpf; Squamous Epithelial Cells Few /hpf (Few)
[2020-09-12] MEDS ORDERED: BASAGLAR K100 UNIT/8 SC (12:31)
[2020-09-12] MEDS ORDERED: INSULIN LI100 UNIT/6 SC (12:32)
--- NOTE | 2020-09-12 13:30 | NUR ---
INITIAL ASSESSMENT PATIENT ARRIVED TO ICU FROM ER AT 1250. PATIENT ALERT AND ORIENTED X 4, AFEBRILE. PATIENT SLIGHTLY WEAK BUT AMBULATING WELL ON OWN. PATIENT DENIES PAIN. PATIENT SATTING 90% AND GREATER ON RA. LUNGS CLEAR THROUGHOUT. PATIENT SOB WITH EXERTION. PATIENT IN SR TO ST, HR 80S TO LOW 100S. SBP 140S TO 170S. PATIENT NAUSEOUS UPON ADMITTANCE TO ER. PATIENT DENYING NAUSEA AT THIS TIME. WNL. SKIN APPEARS WNL. BLOOD SUGAR 424. INSULIN DRIP AT 4 UNITS/ HOUR. 1 L LR BOLUS INFUSING. PATIENT ORIENTED TO UNIT, ROOM AND CALL LIGHT. BED LOW, CALL LIGHT IN REACH. WILL CONTINUE TO MONITOR PATIENT FREQUENTLY THROUGHOUT SHIFT.
[2020-09-12 15:20] LABS: Anion Gap 22 mmol/L (6-16); Blood Urea Nitrogen 13 mg/dL (8-24); Bun/Creatinine Ratio 19.5 (12.0-20.0); CO2, Blood 8 mmol/L (21-32); Calcium, Blood 8.3 mg/dL (8.5-10.1); Chloride, Blood 101 mmol/L (98-108); Creatinine, Blood 0.67 mg/dL (0.60-1.20); Glomerular Filtration Rate >60 (60-); Glucose, Blood 322 mg/dL (70-99); Potassium, Blood 4.5 mmol/L (3.5-5.5); Sodium, Blood 131 mmol/L (136-145)
--- NOTE | 2020-09-12 16:00 | NUR ---
PATIENT AFEBRILE. NO COMPLAINTS OF PAIN. PATIENT REMAINS SATTING 90% AND GREATER ON RA. HR 70S TO LOW 100S. SBP 120S TO 150S. LAST BLOOD SUGAR 273. INSULIN DRIP INFUSING AT 2 UNITS/ HOUR. NO OTHER ACUTE CHANGES TO NOTE ON AT THIS TIME. WILL CONTINUE TO MONITOR.
[2020-09-12 18:50] LABS: Anion Gap 15 mmol/L (6-16); Blood Urea Nitrogen 11 mg/dL (8-24); Bun/Creatinine Ratio 18.9 (12.0-20.0); CO2, Blood 11 mmol/L (21-32); Calcium, Blood 8.4 mg/dL (8.5-10.1); Chloride, Blood 106 mmol/L (98-108); Creatinine, Blood 0.58 mg/dL (0.60-1.20); Glomerular Filtration Rate >60 (60-); Glucose, Blood 234 mg/dL (70-99); Potassium, Blood 4.4 mmol/L (3.5-5.5); Sodium, Blood 132 mmol/L (136-145)
--- NOTE | 2020-09-12 18:51 | NUR ---
SHIFT SUMMARY PATIENT REMAINED ALERT AND ORIENTED, AFEBRILE. NO COMPLAINTS OF PAIN. PATIENT REMAINED SATTING 90% AND GREATER ON RA. PATIENT SOB WITH EXERTION WHEN FIRST ARRIVED TO UNIT. PATIENT NO LONGER SOB WITH EXERTION. PATIENT REMAINED IN SR TO ST, HR 70S TO LOW 100S. SBP 120S TO 170S. NO NAUSEA THIS SHIFT. PATIENT INCREASED TO CLEAR LIQUID/ ADA DIET. WNL. SKIN WNL. PATIENT REPOSITIONED SELF THROUGHOUT SHIFT. LR INFUSING AT 200 MLS/ HOUR, INSULIN DRIP AT 3 UNITS/ HOUR. PATIENT RECEIVED 1 L LR BOLUS. BLOOD SUGAR HAS DECREASED FROM 424 AT BEGINNING OF SHIFT TO 252. LABS IMPROVING SLIGHTLY. PATIENT STATES HE FEELS MUCH BETTER. PATIENT RECEIVED 20 MEQ KCL. PATIENT RESTING QUIETLY IN BED AT THIS TIME WITH NO COMPLAINTS. BED LOW, CALL LIGHT IN REACH. REPORT WILL BE GIVEN TO ONCOMING SALES DRIVER NURSE SHORTLY.
--- NOTE | 2020-09-12 21:43 | NUR ---
ASSUMPTION OF CARE PT RESTING IN BED, AROUSES TO VERBAL STIMULI, ORIENTED x4, DENIES PAIN OR NAUSEA. O2 SATURATIONS> 90% ON RA, MONITOR SHOWS SINUS RHYTHM WITH HR 80'S, BP STABLE. PT TOLERATING CLEAR LIQUIDS, STS HE WANTS "REAL FOOD", DISCUSSED CURRENT ILLNESS AND PLAN OF CARE. INSULIN GTT INFUSING @ 3u/hr, CBG'S TRENDING DOWN, D5 1/2 NS STARTED ONCE CBG< 200, SEE FLOWSHEET. PT DENIES ANY OTHER GI/ ISSUES. CALL LIGHT WITHIN REACH, PT USING APPROPRIATELY.
[2020-09-12 22:24] LABS: Anion Gap 11 mmol/L (6-16); Blood Urea Nitrogen 10 mg/dL (8-24); Bun/Creatinine Ratio 19.2 (12.0-20.0); CO2, Blood 16 mmol/L (21-32); Chloride, Blood 105 mmol/L (98-108); Creatinine, Blood 0.52 mg/dL (0.60-1.20); Glomerular Filtration Rate >60 (60-); Glucose, Blood 331 mg/dL (70-99); Potassium, Blood 4.2 mmol/L (3.5-5.5); Sodium, Blood 132 mmol/L (136-145)
[2020-09-13 03:38] LABS: Anion Gap 6 mmol/L (6-16); Blood Urea Nitrogen 11 mg/dL (8-24); Bun/Creatinine Ratio 22.2 (12.0-20.0); CO2, Blood 21 mmol/L (21-32); Calcium, Blood 8.5 mg/dL (8.5-10.1); Chloride, Blood 108 mmol/L (98-108); Glomerular Filtration Rate >60 (60-); Glucose, Blood 170 mg/dL (70-99); Potassium, Blood 3.3 mmol/L (3.5-5.5); Sodium, Blood 135 mmol/L (136-145)
--- NOTE | 2020-09-13 06:19 | NUR ---
SHIFT SUMMARY PT SLEPT ON AND OFF T/O SHIFT, CALL PLACED TO DR AMARAL REGARDING AM LABS, NEW ORDERS FOR 20meq KCL IV, 10u LONG ACTING INSULIN, ADA DIET, AND NS @ 100ml/hr AFTER D5 1/2 NS AND INSULIN GTT TURNED OFF. PT TOLERATING PO INTAKE, INSULIN GTT TURNED OFF @ APPROX 0500. PT ANXIOUS TO GO HOME, REPORTS NEEDING TO GO TO WORK TODAY. CALL LIGHT WITHIN REACH, PT USING APPROPRIATELY.
--- NOTE | 2020-09-13 06:54 | NUR ---
AMA PT REQUESTING TO LEAVE, STS HIS BROTHER IS ON HIS WAY TO PICK PT UP. DISCUSSED RISKS AND BENEFITS OF LEAVING WITH PT. CALL PLACED TO DR AMARAL TO NOTIFY OF PTS DESIRE TO LEAVE. PT ENCOURAGED TO WAIT FOR OFFICIAL DC ORDER FROM PROVIDER, PT DECLINED. SEE SIGNED AMA FORM.
--- NOTE | 2020-09-13 07:01 | NUR ---
PT LEFT ICU
[2021-01-01] MEDS ORDERED: HYDR1TAB94 PO (09:59)
[2021-01-01] MEDS ORDERED: ORAL ANESTHETIC9 GM MM (09:59)
== END 2020-09-13 07:29 | disposition left against medical advice (07) | DRG 638 ==
LOC: ER 09:44 → ICUW 11:37
PROVIDERS: Emergency Medicine; ADMIT Hospitalist
DX: E10.10 Type 1 diabetes mellitus with ketoacidosis without coma (principal); E87.1 Hypo-osmolality and hyponatremia; Z53.29 Procedure and treatment not carried out because of patient's decision for other reasons; Z79.4 Long term (current) use of insulin
CPT/HCPCS: 36415; 80048; 80053; 81001; 82803; 82947; 85025; 87086; 96374; 99285-25; A9270; J1815; J2405; J3480; J7030; J7042; J7120

== ENCOUNTER 2020-12-18 11:12 | Observation (INO) | payer OTHER ==
[~2020-12-18] VITALS: Ht 172.7 cm; Wt 62.5 kg
[~2020-12-18 11:12] MED LIST changes: +BASAGLAR K100 UNIT/8 SC; +INSULIN LI100 UNIT/6 SC
[2020-12-18 11:45] LABS: Calcium, Ionized (POC) 1.23 mmol/L (1.10-1.46); Chloride (POC) 108 mmol/L (98-108); Creatinine (POC) 0.6 mg/dL (0.8-1.3); Glucose (ISTAT POC) 288 mg/dL (70-99); Hemoglobin (POC) 18.7 g/dL (13.5-17.5); Potassium (POC) 3.9 mmol/L (3.5-5.5); Sodium (POC) 135 mmol/L (135-148); Total CO2 (POC) 7 mmol/L (21-32)
[2020-12-18 12:03] LABS: BASOPHILS ABSOLUTE AUTO 0.05 K/mm3 (0.00-0.23); BASOPHILS PERCENT AUTO 1 % (0-2); EOSINOPHILS PERCENT AUTO 0 % (0-6); Hematocrit 51.2 % (37.0-53.0); Hemoglobin 17.8 g/dL (13.5-17.5); IMMATURE GRAN ABSOLUTE AUTO 0.08 K/mm3 (0.00-0.10); IMMATURE GRAN PERCENT AUTO 1 % (0-1); LYMPHOCYTES ABSOLUTE AUTO 0.79 K/mm3 (0.84-5.20); LYMPHOCYTES PERCENT AUTO 13 % (21-46); MONOCYTES ABSOLUTE AUTO 0.49 K/mm3 (0.16-1.47); MONOCYTES PERCENT AUTO 8 % (4-13); Mean Corpuscular HGB Conc 34.8 g/dL (31.5-36.5); Mean Corpuscular Volume 98 fL (80-100); NEUTROPHILS ABSOLUTE AUTO 4.72 K/mm3 (1.96-9.15); NEUTROPHILS PERCENT AUTO 77 % (41-73); Platelet Count 356 K/mm3 (150-400); RDW Coefficient Variation 13.2 % (11.7-14.2); RDW Standard Deviation 47.2 fL (35.1-46.3); Red Blood Cell Count 5.23 M/mm3 (4.30-5.90); White Blood Cell Count 6.13 K/mm3 (4.00-11.30)
[2020-12-18 12:38] LABS: Alanine Aminotransfer (ALT/SGP 28 U/L (12-78); Albumin, Blood 4.5 g/dL (3.4-5.0); Albumin/Globulin Ratio 1.1 (0.8-1.8); Alk Phos 105 U/L (50-136); Anion Gap 23 mmol/L (6-16); Aspartate Aminotrans (AST/SGOT 18 U/L (12-37); Bilirubin, Total 0.5 mg/dL (0.1-1.0); Blood Urea Nitrogen 12 mg/dL (8-24); Bun/Creatinine Ratio 17.1 (12.0-20.0); CO2, Blood 7 mmol/L (21-32); Calcium, Blood 8.4 mg/dL (8.5-10.1); Chloride, Blood 104 mmol/L (98-108); Globulin, Blood 4.2 g/dL (2.2-4.0); Glomerular Filtration Rate >60 (60-); Glucose, Blood 279 mg/dL (70-99); Potassium, Blood 3.8 mmol/L (3.5-5.5); Sodium, Blood 134 mmol/L (136-145); Total Protein, Blood 8.7 g/dL (6.4-8.2)
--- NOTE | 2020-12-18 14:36 | NUR ---
Admission/[facility] of Care: Patient arrived to unit at 1330hr, via gurney, accompanied by ED nurse. Stood and transferred to ICU bed without difficulty. A/O x4, denies any pain or discomfort. VSS, spO2 99% on RA. Arrived with insulin gtt infusing at 2u/hr, ED nurse reported recent glucose of just over 200. Checked CBG upon arrival (190), started D5% 1/4 NS with 20meq KCl (per EMAR), and continued insulin gtt at 2u/hr. Will continue to assess blood glucose q1hr, repeat Chem panel ordered for 1800hr. Dr. Mendez ordered ADA diet, with permission to eat/drink. Patient denies ABD pain/discomfort, N/V. Given ice water and sugar free jello, tolerating without difficulty. Patient reports voiding via urinal in ED without difficulty, urinal placed at bedside. Peripheral IV's x2 patent and intact. Call light in reach, makes needs known. Will continue to monitor.
[2020-12-18 18:47] LABS: Anion Gap 13 mmol/L (6-16); Blood Urea Nitrogen 9 mg/dL (8-24); Bun/Creatinine Ratio 16.3 (12.0-20.0); CO2, Blood 15 mmol/L (21-32); Chloride, Blood 108 mmol/L (98-108); Creatinine, Blood 0.55 mg/dL (0.60-1.20); Glomerular Filtration Rate >60 (60-); Glucose, Blood 254 mg/dL (70-99); Sodium, Blood 136 mmol/L (136-145)
--- NOTE | 2020-12-18 18:50 | NUR ---
Shift Summary: No significant changes throughout shift. Insulin gtt fro 2-4u/hr throughout shift, blood glucose 170's-260's. Call placed to Dr. Mendez shortly before shift change to discuss blood glucose increase to 260's following dinner (ate 100%), received instructions to continue insulin gtt to treat glucose and to not cover with additional SC coverage. Awaiting results of repeat chem panel at this time. Peripheral IV's patent and intact. Voiding using urinal without difficulty. VS remain stable. Bedside report given to NOC shift RN.
--- NOTE | 2020-12-18 20:00 | NUR ---
ASSUMING PT CARE: PT RESTING IN BED, WATCHING TV, & TEXTING ON HIS PHONE. PT IS APPROPRIATELY INTERACTIVE W/ STAFF. VS STABLE. INSULIN GTT @ 4u/hr. D5 W/ 1/4NS INF @ 1252ml/hr. 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 PT STS HE IS FEELING MUCH BETTER & BELIEVES HE CAN CONTINUE TO REST & CHECK HIS CBG @ HOME. THIS RN SPOKE W/ PT FOR APPROX 1hr REGARDING LABOR LAWS & AVAILABLE SUPPORT W/ FMLA. ADDITIONALLY, PT EDUCATED ON THE IMPORTANCE OF STAYING IN ICU UNTIL HIS LABS HAVE COMPLETELY CORRECTED TO ENSURE HE IS NOT READMITTED FOR RECURRENT DKA. PT APPEARED RECEPTIVE BUT CONTINUED TO EXPRESS HIS LACK OF MOTIVATION TO STAY HIS COURSE IN ICU. REHABILITATION SERVICES COORDINATOR INFORMED. PT WILL DISCUSS HIS PLAN W/ HIS FATHER & DECIDE WHETHER OR NOT HE WILL STAY THE NIGHT.
--- NOTE | 2020-12-18 21:37 | NUR ---
UPDATE: LEAVING AMA. AFTER SPEAKING W/ HIS FATHER, PT DECIDES TO LEAVE AMA. FURTHER EDUCATED PT ON THE RISKS vs BENEFITS OF LEAVING THE ICU & ENCOURGED TO RETURN TO THE ED IF HE IS WORSE IN ANY WAY. PT ALSO ENCOURAGED TO STAY VIGILANT W/ HIS SYMPTOMS & MONITOR HIS CBG EXTRA CLOSELY HE WAS JUST ON AN INSULIN & D5 DRIP. PT VERBALIZES UNDERSTANDING & SEEMS RECEPTIVE TO EDUCATION. AMA PAPERWORK SIGNED W/OUT INCIDENT. PT's FATHER ARRIVES TO TAKE HIM HOME & OOTD @ 8222.
[2021-01-01] MEDS ORDERED: ORAL ANESTHETIC9 GM MM (09:59)
[2021-01-01] MEDS ORDERED: HYDR1TAB94 PO (09:59)
== END 2020-12-18 21:37 | disposition left against medical advice (07) ==
LOC: ER 11:12 → ICUW 11:13 → ICUE 13:07
PROVIDERS: Emergency Medicine; ADMIT Internal Medicine
DX: E10.10 Type 1 diabetes mellitus with ketoacidosis without coma (principal)
CPT/HCPCS: 36415; 80047; 80048; 80053; 82947; 85014; 85025; 96374; 99285; A9270; C9113; G0378; J1815; J7030

== ENCOUNTER 2021-01-04 07:46 | Inpatient (IN) | payer OTHER ==
[~2021-01-04] VITALS: Ht 172.7 cm; Wt 60.0 kg
[~2021-01-04 07:46] MED LIST changes: +HYDR1TAB94 PO; +ORAL ANESTHETIC9 GM MM
[2021-01-04 08:29] LABS: BASOPHILS ABSOLUTE AUTO 0.07 K/mm3 (0.00-0.23); BASOPHILS PERCENT AUTO 1 % (0-2); EOSINOPHILS ABSOLUTE AUTO 0.01 K/mm3 (0.00-0.68); EOSINOPHILS PERCENT AUTO 0 % (0-6); Hematocrit 47.7 % (37.0-53.0); Hemoglobin 16.5 g/dL (13.5-17.5); IMMATURE GRAN ABSOLUTE AUTO 0.19 K/mm3 (0.00-0.10); IMMATURE GRAN PERCENT AUTO 2 % (0-1); LYMPHOCYTES ABSOLUTE AUTO 2.07 K/mm3 (0.84-5.20); LYMPHOCYTES PERCENT AUTO 23 % (21-46); MONOCYTES ABSOLUTE AUTO 0.63 K/mm3 (0.16-1.47); MONOCYTES PERCENT AUTO 7 % (4-13); Mean Corpuscular HGB 34.4 pg (26.0-34.0); Mean Corpuscular HGB Conc 34.6 g/dL (31.5-36.5); Mean Corpuscular Volume 100 fL (80-100); Mean Platelet Volume 8.7 fL (9.1-12.4); NEUTROPHILS ABSOLUTE AUTO 5.99 K/mm3 (1.96-9.15); NEUTROPHILS PERCENT AUTO 67 % (41-73); Platelet Count 409 K/mm3 (150-400); RDW Coefficient Variation 13.6 % (11.7-14.2); RDW Standard Deviation 49.6 fL (35.1-46.3); Red Blood Cell Count 4.79 M/mm3 (4.30-5.90); White Blood Cell Count 8.96 K/mm3 (4.00-11.30)
[2021-01-04 08:48] LABS: Alanine Aminotransfer (ALT/SGP 21 U/L (12-78); Albumin, Blood 4.4 g/dL (3.4-5.0); Albumin/Globulin Ratio 1.1 (0.8-1.8); Alk Phos 107 U/L (50-136); Anion Gap 29 mmol/L (6-16); Aspartate Aminotrans (AST/SGOT 8 U/L (12-37); Bilirubin, Total 0.5 mg/dL (0.1-1.0); Blood Urea Nitrogen 17 mg/dL (8-24); Bun/Creatinine Ratio 22.2 (12.0-20.0); CO2, Blood 7 mmol/L (21-32); Calcium, Blood 8.6 mg/dL (8.5-10.1); Chloride, Blood 97 mmol/L (98-108); Creatinine, Blood 0.77 mg/dL (0.60-1.20); Globulin, Blood 3.9 g/dL (2.2-4.0); Glomerular Filtration Rate >60 (60-); Glucose, Blood 479 mg/dL (70-99); Potassium, Blood 3.9 mmol/L (3.5-5.5); Sodium, Blood 133 mmol/L (136-145); Total Protein, Blood 8.3 g/dL (6.4-8.2)
[2021-01-04 08:50] LABS: Calcium, Ionized (POC) 1.18 mmol/L (1.10-1.46); Chloride (POC) 105 mmol/L (98-108); Creatinine (POC) 0.8 mg/dL (0.8-1.3); Glucose (ISTAT POC) 469 mg/dL (70-99); Potassium (POC) 4.6 mmol/L (3.5-5.5); Sodium (POC) 133 mmol/L (135-148); Total CO2 (POC) 8 mmol/L (21-32)
[2021-01-04 09:10] LABS: Source, Urine Voided
[2021-01-04 09:16] LABS: Appearance, Urine Clear (Clear); Bilirubin, Urine Neg (Neg); Blood, Urine 1+ (Neg); Color, Urine Yellow (P-Yellow); Glucose Qualitative, Urine 4+ (Neg); Ketones, Urine 4+ (Neg); Leukocyte Esterase, Urine 2+ (Neg); Nitrite, Urine Neg (Neg); Protein, Urine 2+ (Neg); Specific Gravity, Urine 1.025 (1.003-1.022); Urobilinogen, Urine NORM (Normal)
[2021-01-04 09:25] LABS: Base Excess Venous -25.7 mmol/L; Bicarbonate Venous 8.4 mmol/L (24.0-30.0); PCO2 Venous 30.6 mmHg (38-42); PO2 Venous 110 mmHg (38-42)
[2021-01-04 09:26] LABS: pH Blood Venous 6.94 (7.34-7.37)
[2021-01-04 09:40] LABS: Squamous Epithelial Cells Few /hpf (Few); White Blood Cells, Urine 25-50 /hpf (0-5)
[2021-01-04 09:41] LABS: Bacteria Rare /hpf; Mucus Light (0-Heavy)
[2021-01-04 16:08] LABS: Anion Gap 19 mmol/L (6-16); Blood Urea Nitrogen 13 mg/dL (8-24); Bun/Creatinine Ratio 23.9 (12.0-20.0); CO2, Blood 10 mmol/L (21-32); Calcium, Blood 7.4 mg/dL (8.5-10.1); Chloride, Blood 105 mmol/L (98-108); Creatinine, Blood 0.54 mg/dL (0.60-1.20); Glomerular Filtration Rate >60 (60-); Glucose, Blood 257 mg/dL (70-99); Potassium, Blood 3.3 mmol/L (3.5-5.5); Sodium, Blood 134 mmol/L (136-145)
[2021-01-04 16:12] LABS: Base Excess Venous -18.7 mmol/L; Bicarbonate Venous 12.3 mmol/L (24.0-30.0); PCO2 Venous 23.3 mmHg (38-42); PO2 Venous 81.9 mmHg (38-42); pH Blood Venous 7.21 (7.34-7.37)
[2021-01-04] MEDS ORDERED: Norco 5-325 Ta1 EACH PO (17:11)
--- NOTE | 2021-01-04 18:05 | NUR ---
PT ARRIVED TO ICU 16 AT 1650. ARRIVES ON INSULIN GTT OF 3UNITS/HR AND D5 1/2NS RUNNING. PT IS A/O X4. MOVES SELF TO BED. C/O BEING HUNGRY. PT STATES HE HAS TOOTH PROBLEMS RIGHT NOW AND AN APPT TO HAVE IT REMOVED TOMORROW. PT STATES IF HE DOES NOT GET DISCHARGED BY THEN HE WILL SIGN HIMSELF OUT AMA. NO SIGN OF DISTRESS NOW.
--- NOTE | 2021-01-04 19:33 | NUR ---
ASSUMED CARE REPORT RECEIVED FROM PAOLO BOONE. PT SLEEPING, EASILY AWAKENS TO VERBAL STIMULI. INSULIN INFUSING AT 4 UNITS/HR AND D51/2NS AT 200 ML/HR. PT STATES THAT HE IS VERY HUNGRY, BORED, AND TIRED OF SITTING IN THE HOSPITAL. STATES "IF MY LABS ARE EVEN SOMEWHAT NORMAL I'M PROBABLY GOING TO CHECK MYSELF OUT". VSS, HR 70'S, SBP 115'S, SPO2 100% ON RA.
[2021-01-04 20:15] LABS: Anion Gap 8 mmol/L (6-16); Blood Urea Nitrogen 12 mg/dL (8-24); Bun/Creatinine Ratio 29.3 (12.0-20.0); CO2, Blood 17 mmol/L (21-32); Calcium, Blood 8.1 mg/dL (8.5-10.1); Chloride, Blood 109 mmol/L (98-108); Creatinine, Blood 0.41 mg/dL (0.60-1.20); Glomerular Filtration Rate >60 (60-); Glucose, Blood 203 mg/dL (70-99); Potassium, Blood 3.4 mmol/L (3.5-5.5); Sodium, Blood 134 mmol/L (136-145)
--- NOTE | 2021-01-04 20:48 | NUR ---
UPDATE 2015: DR SIMON NOTIFIED REGARDING PT'S UPDATED LABS AND BS <250. ALSO NOTIFIED THAT PT IS WANTING TO LEAVE AMA BECAUSE HE IS HUNGRY. MD AGREEABLE TO ADVANCING DIET TO FULL LIQUID, LEAVING INSULIN AT 2 UNITS AND D51/2NS AT 200 ML/HR AND RECHECKING LABS IN 2 HOURS. 2029: DR SIMON NOTIFIED THAT PT IS NOT AGREEABLE TO STAYING. STATES "I FEEL SICK BECAUSE I'M NOT EATING" DOES NOT WANT TO TRY LIQUID DIET AND LAB RECHECK IN 2 HOURS. PER , PT TO BE MADE AWARE TO RETURN TO ED IF SYMPTOMS RETURN. 2046: AMA PAPERWORK SIGNED BY PT, FLUIDS STOPPED, IV'S REMOVED. PT HAD HOME HYDROCODONE IN LOCKED BOX IN ROOM, RETURNED TO PT. PT OFF THE UNIT AT THIS TIME.
== END 2021-01-04 20:45 | disposition left against medical advice (07) | DRG 638 ==
LOC: ER 07:46 → ERHOLD 10:43 → ICUW 16:55
PROVIDERS: Emergency Medicine; Nurse Practitioner Acute Care; ADMIT Internal Medicine
DX: E10.10 Type 1 diabetes mellitus with ketoacidosis without coma (principal); E87.1 Hypo-osmolality and hyponatremia; F17.210 Nicotine dependence, cigarettes, uncomplicated
CPT/HCPCS: 36415; 71045; 80047; 80048; 80053; 81001; 82010; 82803; 82947; 85014; 85025; 87086; 93005; 93010; 96361; 96365; 96375; 99285-25; A9270; J0696; J1815; J7030; J7042

== ENCOUNTER 2021-01-07 17:58 | Inpatient (IN) | payer OTHER ==
[~2021-01-07] VITALS: Ht 172.7 cm; Wt 61.2 kg
[~2021-01-07 17:58] MED LIST changes: +Norco 5-325 Ta1 EACH PO
[2021-01-07 18:58] LABS: BASOPHILS ABSOLUTE AUTO 0.04 K/mm3 (0.00-0.23); BASOPHILS PERCENT AUTO 1 % (0-2); EOSINOPHILS PERCENT AUTO 0 % (0-6); Hematocrit 44.4 % (37.0-53.0); Hemoglobin 15.6 g/dL (13.5-17.5); IMMATURE GRAN ABSOLUTE AUTO 0.08 K/mm3 (0.00-0.10); IMMATURE GRAN PERCENT AUTO 1 % (0-1); LYMPHOCYTES ABSOLUTE AUTO 0.72 K/mm3 (0.84-5.20); LYMPHOCYTES PERCENT AUTO 9 % (21-46); MONOCYTES PERCENT AUTO 10 % (4-13); Mean Corpuscular HGB 34.7 pg (26.0-34.0); Mean Corpuscular HGB Conc 35.1 g/dL (31.5-36.5); Mean Corpuscular Volume 99 fL (80-100); Mean Platelet Volume 8.5 fL (9.1-12.4); NEUTROPHILS PERCENT AUTO 79 % (41-73); Platelet Count 399 K/mm3 (150-400); RDW Coefficient Variation 13.9 % (11.7-14.2); RDW Standard Deviation 50.7 fL (35.1-46.3); White Blood Cell Count 7.74 K/mm3 (4.00-11.30)
[2021-01-07 19:14] LABS: Source, Urine Clean Catch
[2021-01-07 19:15] LABS: Ethanol (Alcohol), Blood, Med <3 mg/dL; Magnesium, Blood 2.2 mg/dL (1.6-2.4)
[2021-01-07 19:20] LABS: Bilirubin, Urine Neg (Neg); Blood, Urine 2+ (Neg); Glucose Qualitative, Urine 4+ (Neg); Ketones, Urine 4+ (Neg); Leukocyte Esterase, Urine Neg (Neg); Nitrite, Urine Neg (Neg); Protein, Urine 2+ (Neg); Specific Gravity, Urine 1.025 (1.003-1.022); Urobilinogen, Urine NORM (Normal)
[2021-01-07 19:25] LABS: Appearance, Urine Clear (Clear); Color, Urine Pale Yellow (P-Yellow)
[2021-01-07 19:28] LABS: Bacteria Few /hpf; Red Blood Cells, Urine 0-2 /hpf (0-2); Squamous Epithelial Cells Rare /hpf (Few); White Blood Cells, Urine Rare /hpf (0-5)
[2021-01-07 19:31] LABS: U Amphetamine Screen Not Detected; U Barbituate Screen Not Detected; U Benzodiazapine Screen Not Detected; U Buprenorphine Screen Not Detected; U Cannabinoids Screen DETECTED; U Cocaine Screen Not Detected; U Methadone Screen Not Detected; U Methamphetamine Screen Not Detected; U Opiates Screen Not Detected; U Oxycodone Screen Not Detected; U Phencyclidine Screen Not Detected; U Propoxyphene Screen Not Detected
[2021-01-07 19:40] LABS: Base Excess Venous -24.5 mmol/L; Bicarbonate Venous 8.7 mmol/L (24.0-30.0); PCO2 Venous 26.2 mmHg (38-42); PO2 Venous 53.9 mmHg (38-42); pH Blood Venous 7.01 (7.34-7.37)
[2021-01-07 19:42] LABS: Alanine Aminotransfer (ALT/SGP 21 U/L (12-78); Albumin/Globulin Ratio 1.1 (0.8-1.8); Alk Phos 92 U/L (50-136); Anion Gap 20 mmol/L (6-16); Aspartate Aminotrans (AST/SGOT 16 U/L (12-37); Beta-hydroxybutyrate 96.3 mg/dL (0.2-2.8); Bilirubin, Total 0.4 mg/dL (0.1-1.0); Blood Urea Nitrogen 21 mg/dL (8-24); Bun/Creatinine Ratio 30.4 (12.0-20.0); CO2, Blood 7 mmol/L (21-32); Chloride, Blood 105 mmol/L (98-108); Creatinine, Blood 0.69 mg/dL (0.60-1.20); Globulin, Blood 3.6 g/dL (2.2-4.0); Glomerular Filtration Rate >60 (60-); Glucose, Blood 405 mg/dL (70-99); Potassium, Blood 3.7 mmol/L (3.5-5.5); Sodium, Blood 132 mmol/L (136-145); Total Protein, Blood 7.6 g/dL (6.4-8.2)
--- NOTE | 2021-01-07 22:30 | NUR ---
ARRIVAL TO ICU PT ARRIVED TO ICU 7 AT 2130 VIA ED BED. PT ABLE TO TRANSFER SELF TO ICU BED WITH OUT ASSISTANCE. GLUCOSE AT ARRIVAL WAS 181, INSULIN PLACED TO 1UNIT/HR, SEE FLOW SHEET FOR TITRATION. D5 1/2NS WITH 20MEQ OF POTASSIUM STARTED AT 150ML/HR. PT IS ALERT/ORINETED X4 AND ABLE TO MAKE NEEDS KNOWN. SPO2 >98% ON RA, RR WNL. HR 80-110. BP STABLE. C/O NAUSEA X1, PRN ZOFRAN GIVEN AND HELPFUL; PT EXPRESSES THE WANT TO EAT FOOD BUT KNOWS THAT HE CANNOT YET. PT ABLE TO USE URINAL IN BED INDEPENDENTLY. SEE ADMISSION ASSESSMENT FOR FULL ASSESSMENT.
[2021-01-07 23:14] LABS: Albumin, Blood 3.1 g/dL (3.4-5.0); Anion Gap 11 mmol/L (6-16); Blood Urea Nitrogen 15 mg/dL (8-24); Bun/Creatinine Ratio 37.7 (12.0-20.0); CO2, Blood 12 mmol/L (21-32); Calcium, Blood 7.4 mg/dL (8.5-10.1); Chloride, Blood 112 mmol/L (98-108); Glomerular Filtration Rate >60 (60-); Glucose, Blood 193 mg/dL (70-99); Magnesium, Blood 1.9 mg/dL (1.6-2.4); Phosphorus, Blood 2.4 mg/dL (2.5-4.9); Potassium, Blood 3.3 mmol/L (3.5-5.5); Sodium, Blood 135 mmol/L (136-145)
--- NOTE | 2021-01-08 | NUR ---
UPDATE DR MOHR CALLED AND PROVIDED ORDERS AFTER REVIEWING LABS DRAWN AT 2240 (GLUCOSE 193, ANION GAP 11, CARBON DIOXIDE 12). ORDERS PROVIDED WERE TO DISCONTINUE D5 1/2NS WITH 20MEQ OF POTASSIUM, START NS AT 125ML/HR, TO SWITCH OVER TO SUBQ HUMALOG IN THE AM, AND TO INFUSE POTASSIUM PHOSPHATE. AFTER REVIEWING THIS WITH POTATO CHIP FRIERPAOLO CAVAZOS, DR PORTER CALLED TO CONFIRM PLAN OF TREATMENT. DR PORTER STATED TO CONT D5 1/2NS WITH 20MEQ POTASSIUM UNTIL MORNING LABS, NOT START NS UNTIL AFTER D5 IS STOPPED, AND TO REEVALUATE WITH RESULTS.
[2021-01-08 02:36] LABS: Base Excess Venous -11.1 mmol/L; Bicarbonate Venous 16.7 mmol/L (24.0-30.0); PCO2 Venous 31.2 mmHg (38-42); PO2 Venous 119 mmHg (38-42)
[2021-01-08 02:37] LABS: BASOPHILS ABSOLUTE AUTO 0.05 K/mm3 (0.00-0.23); BASOPHILS PERCENT AUTO 1 % (0-2); EOSINOPHILS ABSOLUTE AUTO 0.05 K/mm3 (0.00-0.68); EOSINOPHILS PERCENT AUTO 1 % (0-6); Hematocrit 34.6 % (37.0-53.0); Hemoglobin 12.7 g/dL (13.5-17.5); IMMATURE GRAN ABSOLUTE AUTO 0.06 K/mm3 (0.00-0.10); IMMATURE GRAN PERCENT AUTO 1 % (0-1); LYMPHOCYTES ABSOLUTE AUTO 2.11 K/mm3 (0.84-5.20); LYMPHOCYTES PERCENT AUTO 27 % (21-46); MONOCYTES ABSOLUTE AUTO 0.82 K/mm3 (0.16-1.47); MONOCYTES PERCENT AUTO 10 % (4-13); Mean Corpuscular HGB 34.4 pg (26.0-34.0); Mean Corpuscular HGB Conc 36.7 g/dL (31.5-36.5); Mean Corpuscular Volume 94 fL (80-100); Mean Platelet Volume 8.3 fL (9.1-12.4); NEUTROPHILS ABSOLUTE AUTO 4.77 K/mm3 (1.96-9.15); NEUTROPHILS PERCENT AUTO 61 % (41-73); Platelet Count 290 K/mm3 (150-400); RDW Coefficient Variation 13.6 % (11.7-14.2); Red Blood Cell Count 3.69 M/mm3 (4.30-5.90); White Blood Cell Count 7.86 K/mm3 (4.00-11.30)
[2021-01-08 02:51] LABS: Albumin, Blood 2.9 g/dL (3.4-5.0); Anion Gap 11 mmol/L (6-16); Blood Urea Nitrogen 11 mg/dL (8-24); Bun/Creatinine Ratio 26.6 (12.0-20.0); CO2, Blood 16 mmol/L (21-32); Calcium, Blood 7.5 mg/dL (8.5-10.1); Chloride, Blood 111 mmol/L (98-108); Creatinine, Blood 0.41 mg/dL (0.60-1.20); Glomerular Filtration Rate >60 (60-); Glucose, Blood 231 mg/dL (70-99); Magnesium, Blood 1.8 mg/dL (1.6-2.4); Phosphorus, Blood 3.2 mg/dL (2.5-4.9); Potassium, Blood 3.3 mmol/L (3.5-5.5); Sodium, Blood 138 mmol/L (136-145)
--- NOTE | 2021-01-08 05:39 | NUR ---
POTASSIUM SPOKE WITH PHARMACIST FROYLAN REGARDING COMPATABILITY OF KPHOS, KCL, AND D5 1/2NS WITH 20MEQ OF POTASSIUM. RN INFORMED THAT THESE THREE MEDICATION CANNOT INFUSE AT THE SAME TIME BECAUSE THIS WOULD BE TOO MUCH POTASSIUM INFUSING AT ONE TIME. PLAN TO START KCL AFTER KPHOS IS DONE INFUSING, KPHOS RATE DECREASED EARLIER DUE TO PT NOT TOLERATING INFUSION STATING A "BURNING SENSATION".
--- NOTE | 2021-01-08 06:29 | NUR ---
END OF SHIFT SUMMARY PT SLEPT FROM [id number]. PT IS ALERT/ORIENTED X4 AND ABLE TO MAKE HIS NEEDS KNOWN. VSS. ZOFRAN GIVEN ONCE FOR NAUSEA AND HELPFUL. PT USES URINAL INDEPENDENTLY. GLUCOSE 160-230; INSULIN INFUSING AT 2UNITS/HR. D5 1/2NS INFUSING WITH 20MEQ OF POTASSIUM, KPHOS INFUSING, SEE PREVIOUS NOTE ABOUT KCL. WILL REPORT TO AM RN WHEN AVAILABLE.
[2021-01-08 07:12] LABS: Albumin, Blood 2.7 g/dL (3.4-5.0); Anion Gap 5 mmol/L (6-16); Blood Urea Nitrogen 10 mg/dL (8-24); CO2, Blood 21 mmol/L (21-32); Calcium, Blood 7.8 mg/dL (8.5-10.1); Chloride, Blood 111 mmol/L (98-108); Creatinine, Blood 0.46 mg/dL (0.60-1.20); Glomerular Filtration Rate >60 (60-); Glucose, Blood 197 mg/dL (70-99); Magnesium, Blood 1.8 mg/dL (1.6-2.4); Phosphorus, Blood 3.3 mg/dL (2.5-4.9); Potassium, Blood 3.2 mmol/L (3.5-5.5); Sodium, Blood 137 mmol/L (136-145)
--- NOTE | 2021-01-08 09:06 | NUR ---
PO Potassium given. Plan to stop IV potassium in 30 minutes if pt does not vomit. D5 1/2 NS with 20 meq KCl stopped. Insulin stopped. NS started. Pt states he is still hungry after eating breakfast. Snack given.
[2021-01-08 10:55] LABS: Albumin, Blood 2.9 g/dL (3.4-5.0); Anion Gap 6 mmol/L (6-16); Blood Urea Nitrogen 8 mg/dL (8-24); Bun/Creatinine Ratio 18.9 (12.0-20.0); CO2, Blood 21 mmol/L (21-32); Calcium, Blood 8.1 mg/dL (8.5-10.1); Chloride, Blood 106 mmol/L (98-108); Creatinine, Blood 0.42 mg/dL (0.60-1.20); Glomerular Filtration Rate >60 (60-); Glucose, Blood 322 mg/dL (70-99); Magnesium, Blood 1.9 mg/dL (1.6-2.4); Phosphorus, Blood 3.1 mg/dL (2.5-4.9); Potassium, Blood 3.7 mmol/L (3.5-5.5); Sodium, Blood 133 mmol/L (136-145)
--- NOTE | 2021-01-08 11:30 | NUR ---
Clarified short acting insulin with Dr Istrate. Pt does carb count at home, plan to continue with pt's home regimen, since he is discharging soon.
[2021-01-08] MEDS ORDERED: OMEP20ER PO (12:01)
[2021-01-08] MEDS ORDERED: ONDA4ODT MM (12:02)
--- NOTE | 2021-01-08 12:29 | NUR ---
DISCHARGE DISCHARGE INSTRUCTIONS PROVIDED TO PT. PT VERBALIZES UNDERSTANDING OF CHECKING CBG'S, TAKING INSULIN, AND FOLLOWING UP WITH PCP. RX'S FAXED TO [facility]. IV'S REMOVED. PT DRESSED AND OUT THE DOOR INDEPENDENTLY. BELONGINGS WITH PT.
== END 2021-01-08 12:27 | disposition home or self-care (01) | DRG 638 ==
LOC: ER 17:58 → PCU 21:22 → ICUE 21:35
PROVIDERS: Emergency Medicine; Student in an Organized Health Care Education/Training Program; ADMIT Internal Medicine
DX: E10.10 Type 1 diabetes mellitus with ketoacidosis without coma (principal); E87.1 Hypo-osmolality and hyponatremia; R64 Cachexia; K21.9 Gastro-esophageal reflux disease without esophagitis; E86.0 Dehydration; Z87.891 Personal history of nicotine dependence; Z68.20 Body mass index [BMI] 20.0-20.9, adult; Z79.4 Long term (current) use of insulin; Z98.818 Other dental procedure status
CPT/HCPCS: 36415; 80053; 80069; 81001; 82010; 82803; 82947; 83690; 83735; 85025; 93005; 93010; 99285-25; A9270; G0480; J1815; J2405; J3480; J7030; J7060

== ENCOUNTER 2021-01-29 09:14 | Observation (INO) | payer OTHER ==
[~2021-01-29] VITALS: Ht 177.8 cm; Wt 65.8 kg
[~2021-01-29 09:14] MED LIST changes: +OMEP20ER PO; +ONDA4ODT MM
[2021-01-29 10:01] LABS: BASOPHILS ABSOLUTE AUTO 0.12 K/mm3 (0.00-0.23); BASOPHILS PERCENT AUTO 1 % (0-2); EOSINOPHILS ABSOLUTE AUTO 0.02 K/mm3 (0.00-0.68); EOSINOPHILS PERCENT AUTO 0 % (0-6); Hematocrit 50.5 % (37.0-53.0); Hemoglobin 16.6 g/dL (13.5-17.5); IMMATURE GRAN ABSOLUTE AUTO 0.35 K/mm3 (0.00-0.10); IMMATURE GRAN PERCENT AUTO 3 % (0-1); LYMPHOCYTES ABSOLUTE AUTO 2.84 K/mm3 (0.84-5.20); LYMPHOCYTES PERCENT AUTO 23 % (21-46); MONOCYTES ABSOLUTE AUTO 0.63 K/mm3 (0.16-1.47); MONOCYTES PERCENT AUTO 5 % (4-13); Mean Corpuscular HGB Conc 32.9 g/dL (31.5-36.5); Mean Corpuscular Volume 107 fL (80-100); Mean Platelet Volume 9.2 fL (9.1-12.4); NEUTROPHILS ABSOLUTE AUTO 8.36 K/mm3 (1.96-9.15); NEUTROPHILS PERCENT AUTO 68 % (41-73); Platelet Count 462 K/mm3 (150-400); RDW Coefficient Variation 13.9 % (11.7-14.2); RDW Standard Deviation 54.8 fL (35.1-46.3); Red Blood Cell Count 4.74 M/mm3 (4.30-5.90); White Blood Cell Count 12.32 K/mm3 (4.00-11.30)
[2021-01-29 10:10] LABS: Base Excess Venous -28.9 mmol/L; Bicarbonate Venous 7.2 mmol/L (24.0-30.0); PCO2 Venous 24.8 mmHg (38-42); PO2 Venous 95.4 mmHg (38-42); pH Blood Venous 6.87 (7.34-7.37)
[2021-01-29 10:39] LABS: Alanine Aminotransfer (ALT/SGP 37 U/L (12-78); Albumin, Blood 4.4 g/dL (3.4-5.0); Albumin/Globulin Ratio 1.1 (0.8-1.8); Alk Phos 138 U/L (50-136); Anion Gap 25 mmol/L (6-16); Aspartate Aminotrans (AST/SGOT 21 U/L (12-37); Beta-hydroxybutyrate 108.7 mg/dL (0.2-2.8); Bilirubin, Total 0.5 mg/dL (0.1-1.0); Blood Urea Nitrogen 15 mg/dL (8-24); Bun/Creatinine Ratio 21.6 (12.0-20.0); CO2, Blood 6 mmol/L (21-32); Calcium, Blood 8.7 mg/dL (8.5-10.1); Chloride, Blood 99 mmol/L (98-108); Globulin, Blood 4.1 g/dL (2.2-4.0); Glomerular Filtration Rate >60 (60-); Glucose, Blood 511 mg/dL (70-99); Potassium, Blood 4.5 mmol/L (3.5-5.5); Sodium, Blood 130 mmol/L (136-145); Total Protein, Blood 8.5 g/dL (6.4-8.2)
[2021-01-29 11:49] LABS: Source, Urine Clean Catch
[2021-01-29 11:56] LABS: Appearance, Urine Clear (Clear); Bilirubin, Urine Neg (Neg); Blood, Urine Neg (Neg); Color, Urine Yellow (P-Yellow); Glucose Qualitative, Urine 4+ (Neg); Ketones, Urine 4+ (Neg); Leukocyte Esterase, Urine Neg (Neg); Nitrite, Urine Neg (Neg); Protein, Urine 2+ (Neg); Specific Gravity, Urine 1.025 (1.003-1.022); Urobilinogen, Urine NORM (Normal)
[2021-01-29 12:07] LABS: Red Blood Cells, Urine 0-2 /hpf (0-2); White Blood Cells, Urine 0-2 /hpf (0-5)
[2021-01-29 12:08] LABS: Bacteria Not Seen /hpf; Mucus Light (0-Heavy); Squamous Epithelial Cells Rare /hpf (Few)
[2021-01-29 13:28] LABS: Potassium, Blood 4.6 mmol/L (3.5-5.5)
[2021-01-29 14:54] LABS: Anion Gap 27 mmol/L (6-16); Blood Urea Nitrogen 17 mg/dL (8-24); Bun/Creatinine Ratio 22.4 (12.0-20.0); CO2, Blood 4 mmol/L (21-32); Calcium, Blood 7.7 mg/dL (8.5-10.1); Chloride, Blood 103 mmol/L (98-108); Creatinine, Blood 0.76 mg/dL (0.60-1.20); Glomerular Filtration Rate >60 (60-); Glucose, Blood 467 mg/dL (70-99); Potassium, Blood 4.1 mmol/L (3.5-5.5); Sodium, Blood 134 mmol/L (136-145)
[2021-01-29 18:14] LABS: Potassium, Blood 3.8 mmol/L (3.5-5.5)
[2021-01-29 21:05] LABS: Potassium, Blood 3.3 mmol/L (3.5-5.5)
--- NOTE | 2021-01-29 22:10 | NUR ---
ASSUMED CARE IN ICU: REPORT FROM KARRIE LIU IN ER. PATIENT DOING WELL SO FAR. C/O INTERMITTENT ABD CRAMPING THAT HAS BEEN OCCURING ALL DAY. VSS ON ROOM AIR. Q1 GLUCOSE CHECKS. INSULIN INFSUING AT 3.3 AT TRANSPORT AND D5 0.45 ALREADY INITIATED. WILL CONTINUE TO MONITOR. HE IS CALM AND CDOOPERATIVE AT THIS TIME
--- NOTE | 2021-01-29 23:15 | NUR ---
ASSUMED CARE OF PATIENT AT 2255. REPORT RECEIVED FROM PAOLO RUBIO. LAST CBG 164, LEFT INSULIN DRIP AT 4 UNITS/HR. PATIENT A/OX3. SEE SHIFT ASSESSMENT. CALL LIGHT IN REACH.
[2021-01-30 01:09] LABS: Potassium, Blood 3.3 mmol/L (3.5-5.5)
--- NOTE | 2021-01-30 01:45 | NUR ---
CALLED DR. LOTT. NOTIFIED HIM LAST CBG WAS 138. ANION GAP WAS 9. DR. LOTT STATES HE WOULD PUT IN ORDERS FOR LANTUS. GIVE LANTUS AND THEN FEED PATIENT ADA DIET. STOP INSULIN DRIP 1.5 HOURS AFTER GIVING LANTUS. PATIENT CAN THEN POSSIBLY BE TRANSFERRED TO MEDICAL FLOOR.
--- NOTE | 2021-01-30 01:58 | NUR ---
DR. LOTT STATES TO STOP D5W1/2NS NOW. STATES TO CONTINUE WITH OTHER ORDERS. RECHECK CBG 1 HOUR AFTER STOPPING THE INSULIN DRIP.
--- NOTE | 2021-01-30 03:57 | NUR ---
INSULIN DRIP TURNED OFF PER ORDERS
[2021-01-30 05:01] LABS: Hematocrit 37.8 % (37.0-53.0); Hemoglobin 13.7 g/dL (13.5-17.5); Mean Corpuscular HGB 34.5 pg (26.0-34.0); Mean Corpuscular HGB Conc 36.2 g/dL (31.5-36.5); Mean Platelet Volume 8.7 fL (9.1-12.4); Platelet Count 329 K/mm3 (150-400); RDW Coefficient Variation 13.2 % (11.7-14.2); RDW Standard Deviation 46.6 fL (35.1-46.3); Red Blood Cell Count 3.97 M/mm3 (4.30-5.90); White Blood Cell Count 9.23 K/mm3 (4.00-11.30)
[2021-01-30 05:10] LABS: Mean Corpuscular Volume 95 fL (80-100)
[2021-01-30 05:26] LABS: Anion Gap 9 mmol/L (6-16); Blood Urea Nitrogen 9 mg/dL (8-24); Bun/Creatinine Ratio 16.9 (12.0-20.0); CO2, Blood 18 mmol/L (21-32); Calcium, Blood 8.5 mg/dL (8.5-10.1); Chloride, Blood 108 mmol/L (98-108); Creatinine, Blood 0.53 mg/dL (0.60-1.20); Glomerular Filtration Rate >60 (60-); Glucose, Blood 281 mg/dL (70-99); Sodium, Blood 135 mmol/L (136-145)
--- NOTE | 2021-01-30 05:40 | NUR ---
CALLED DR. LOTT. NOTIFIED HIM PATIENT'S LAST CBG 1 HOUR AFTER STOPPING INSULIN DRIP WAS 303. REVIEWED LABS: SODIUM 135, CARBON DIOXIDE 18, ANION GAP 9. PATIENT STATES HE USES HIGH SLIDING SCALE AT HOME. ORDERS RECEIVED FOR HUMALOG KWIK PEN HIGH SLIDING SCALE BEFORE MEALS (NOT AT BEDTIME), GIVE ONE TIME DOSE OF 12 UNITS PER SLIDING SCALE TO COVER CBG OF 303. CHECK CBGS ACHS. STATES TO CONTINUE TO WATCH IN THE ICU FOR A FEW MORE HOURS TO MONITOR BLOOD SUGAR.
--- NOTE | 2021-01-30 06:34 | NUR ---
SHIFT SUMMARY: NEW ADMIT THIS SHIFT. PATIENT A/OX3. REPORTS ABDOMINAL CRAMPING AT TIMES, STATES PAIN INCREASES WITH DEEP BREATH OR FULL EXHALATION BUT IT IS TOLERABLE, STATES HE HAS BEEN ABLE TO SLEEP. STATES "I FEEL MUCH BETTER." ON ROOM AIR. SINUS RHYTHM ON TELE. TOLERATING ADA DIET. INSULIN DRIP OFF. LAST CBG 303, COVERED WITH HUMALOG SLIDING SCALE. LONG ACTING INSULIN GIVEN. POTASSIUM UP TO 4.0. UP WITH SBA, STEADY ON HIS FEET. DR. LOTT WANTS TO MONITOR HIS BLOOD SUGAR IN ICU FOR "A FEW MORE HOURS", WILL NOTIFY DAYSHIFT RN. PATIENT STATES HE WOULD LIKE TO GO HOME. WILL CONTINUE TO MONITOR AND REPORT TO ONCOMING RN.
--- NOTE | 2021-01-30 07:14 | NUR ---
PATIENT STATES ABDOMEN NO LONGER HURTS WITH DEEP BREATHS OR EXHALATION.
[2021-01-30 09:30] LABS: Anion Gap 9 mmol/L (6-16); Blood Urea Nitrogen 11 mg/dL (8-24); Bun/Creatinine Ratio 26.6 (12.0-20.0); CO2, Blood 18 mmol/L (21-32); Calcium, Blood 8.8 mg/dL (8.5-10.1); Chloride, Blood 108 mmol/L (98-108); Creatinine, Blood 0.41 mg/dL (0.60-1.20); Glomerular Filtration Rate >60 (60-); Glucose, Blood 183 mg/dL (70-99); Magnesium, Blood 1.9 mg/dL (1.6-2.4); Phosphorus, Blood 1.2 mg/dL (2.5-4.9); Potassium, Blood 3.3 mmol/L (3.5-5.5); Sodium, Blood 135 mmol/L (136-145)
--- NOTE | 2021-01-30 09:40 | NUR ---
Provider call Spoke to Dr. Garcia in regards to patients K and Phos lab results. New orders recieved, see emar. Possible discharge later today. Pt to have BMP checked one hour after KPhos is completed.
--- NOTE | 2021-01-30 10:34 | NUR ---
Care Assumed 0700 Pt resting in bed. A/O x 4, able to state correct location, event, and date/year. Denies pain or SOB. Pt appears diaphortic but state he does not feel like he has a temp. Temp of 100.6. VSS. NSR. Pt eating and drinking, denies nausea. States having some tenderness in abd when palpated, otherwise at rest no pain. Pt provided with coloring booking, states, "I am bored and want to go home." Provider in to see patient, made aware of temp and waiting for BMP labs to return prior to status change.
--- NOTE | 2021-01-30 12:13 | NUR ---
Report given to PAOLO Dupont
--- NOTE | 2021-01-30 12:30 | NUR ---
ASSUMED CARE FROM PAOLO SMITH. PT SITTING UP IN BED FINISHING WITH LUNCH. GOOD APPETITE NOTED. CONTINUE TO MONITOR AND TX PRN.
--- NOTE | 2021-01-30 15:07 | NUR ---
RESTING QUIETLY. STATING "IM HUNDRY". REQUESTING FOR SOMETHING TO EAT. SANDWICH GIVEN.
[2021-01-30 16:45] LABS: Anion Gap 10 mmol/L (6-16); Blood Urea Nitrogen 9 mg/dL (8-24); Bun/Creatinine Ratio 20.9 (12.0-20.0); CO2, Blood 21 mmol/L (21-32); Calcium, Blood 8.6 mg/dL (8.5-10.1); Chloride, Blood 107 mmol/L (98-108); Creatinine, Blood 0.43 mg/dL (0.60-1.20); Glomerular Filtration Rate >60 (60-); Glucose, Blood 270 mg/dL (70-99); Potassium, Blood 3.4 mmol/L (3.5-5.5); Sodium, Blood 138 mmol/L (136-145)
--- NOTE | 2021-01-30 16:52 | NUR ---
SPOKE WITH DR SIMON REGARDING FOLLOW UP LAB RESULTS. PT'S LABS HAVE STABILIZED. PER , WILL DISCHARGE PT HOME.
--- NOTE | 2021-01-30 18:25 | NUR ---
Patient up to Ambulate independently. Gait steady. Discharge instructions reviewed with patient. Patient verbalizes understanding. Copy given to patient to take home. Patient States ride home has been arranged with Father. Dc'd to home.
== END 2021-01-30 18:32 | disposition home or self-care (01) ==
LOC: ER 09:14 → ERHOLD 09:15 → ICUW 20:09
PROVIDERS: Internal Medicine; Physician Assistant; Student in an Organized Health Care Education/Training Program; ADMIT Internal Medicine
DX: E10.10 Type 1 diabetes mellitus with ketoacidosis without coma (principal); F17.290 Nicotine dependence, other tobacco product, uncomplicated; R00.0 Tachycardia, unspecified; K21.9 Gastro-esophageal reflux disease without esophagitis; E87.1 Hypo-osmolality and hyponatremia; E87.6 Hypokalemia; I51.7 Cardiomegaly; Z91.14 Patient's other noncompliance with medication regimen; Z79.4 Long term (current) use of insulin
CPT/HCPCS: 36415; 71046; 80048; 80051; 80053; 81001; 82010; 82803; 82947; 83690; 83735; 84100; 85025; 85027; 93005; 93010; 96361; 96374; 96375; 99285-25; A9270; G0378; J1815; J1885; J2765; J3480; J7030; J7042; J7050; J7060; J7120

== ENCOUNTER 2021-02-08 06:39 | Inpatient (IN) | payer OTHER ==
[~2021-02-08] VITALS: Ht 172.7 cm; Wt 66.7 kg
[2021-02-08 07:35] LABS: Hematocrit 51.5 % (37.0-53.0); Hemoglobin 17.9 g/dL (13.5-17.5); Mean Corpuscular HGB Conc 34.8 g/dL (31.5-36.5); Mean Corpuscular Volume 101 fL (80-100); Mean Platelet Volume 8.9 fL (9.1-12.4); Platelet Count 544 K/mm3 (150-400); RDW Coefficient Variation 13.2 % (11.7-14.2); RDW Standard Deviation 49.7 fL (35.1-46.3); Red Blood Cell Count 5.11 M/mm3 (4.30-5.90); White Blood Cell Count 16.47 K/mm3 (4.00-11.30)
[2021-02-08 08:01] LABS: Alanine Aminotransfer (ALT/SGP 56 U/L (12-78); Albumin, Blood 4.8 g/dL (3.4-5.0); Albumin/Globulin Ratio 0.9 (0.8-1.8); Alk Phos 180 U/L (50-136); Anion Gap 24 mmol/L (6-16); Aspartate Aminotrans (AST/SGOT 37 U/L (12-37); BAND PERCENT MAN 1 % (0-8); BASOPHILS ABSOLUTE MAN 0.16 K/mm3 (0.00-0.23); BASOPHILS PERCENT MAN 1 % (0-2); Bilirubin, Total 0.6 mg/dL (0.1-1.0); Blood Urea Nitrogen 35 mg/dL (8-24); Bun/Creatinine Ratio 29.2 (12.0-20.0); CO2, Blood 13 mmol/L (21-32); Calcium, Blood 10.1 mg/dL (8.5-10.1); Chloride, Blood 94 mmol/L (98-108); EOSINOPHILS PERCENT MAN 0 % (0-6); Globulin, Blood 5.1 g/dL (2.2-4.0); Glomerular Filtration Rate >60 (60-); Glucose, Blood 471 mg/dL (70-99); LYMPHOCYTES ABSOLUTE MAN 1.64 K/mm3 (0.84-5.20); LYMPHOCYTES PERCENT MAN 10 % (21-46); MONOCYTES ABSOLUTE MAN 0.82 K/mm3 (0.16-1.47); MONOCYTES PERCENT MAN 5 % (4-13); MYELOCYTE ABSOLUTE MAN 0.16 K/mm3 (0.00-0.00); MYELOCYTE PERCENT MAN 1 % (0-0); NEUTROPHILS ABSOLUTE MAN 13.67 K/mm3 (1.96-9.15); Potassium, Blood 4.4 mmol/L (3.5-5.5); SEG NEUTROPHILS PERCENT MAN 82 % (41-73); Sodium, Blood 131 mmol/L (136-145); TOTAL CELLS COUNTED 100; Total Protein, Blood 9.9 g/dL (6.4-8.2)
[2021-02-08 08:06] LABS: Beta-hydroxybutyrate 74.7 mg/dL (0.2-2.8)
[2021-02-08 09:02] LABS: Base Excess Venous -12.1 mmol/L; Bicarbonate Venous 15.2 mmol/L (24.0-30.0); PCO2 Venous 42.8 mmHg (38-42); PO2 Venous 45.8 mmHg (38-42)
[2021-02-08 09:03] LABS: pH Blood Venous 7.19 (7.34-7.37)
[2021-02-08 09:33] LABS: Source, Urine Clean Catch
[2021-02-08 09:47] LABS: Appearance, Urine Clear (Clear); Bilirubin, Urine Neg (Neg); Blood, Urine 1+ (Neg); Color, Urine Yellow (P-Yellow); Glucose Qualitative, Urine 4+ (Neg); Ketones, Urine 4+ (Neg); Leukocyte Esterase, Urine Neg (Neg); Nitrite, Urine Neg (Neg); Protein, Urine 2+ (Neg); Specific Gravity, Urine 1.025 (1.003-1.022); Urobilinogen, Urine NORM (Normal)
[2021-02-08 10:27] LABS: Bacteria Rare /hpf; Granular Casts 0-2 /lpf (0); Red Blood Cells, Urine 0-2 /hpf (0-2); Squamous Epithelial Cells Few /hpf (Few)
[2021-02-08 10:37] LABS: SARS-Cov-2 (COVID-19) PCR, MMC NEGATIVE (NEGATIVE)
[2021-02-08 13:37] LABS: Anion Gap 13 mmol/L (6-16); Blood Urea Nitrogen 25 mg/dL (8-24); Bun/Creatinine Ratio 38.2 (12.0-20.0); CO2, Blood 20 mmol/L (21-32); Calcium, Blood 8.4 mg/dL (8.5-10.1); Chloride, Blood 100 mmol/L (98-108); Creatinine, Blood 0.66 mg/dL (0.60-1.20); Glomerular Filtration Rate >60 (60-); Glucose, Blood 280 mg/dL (70-99); Potassium, Blood 4.4 mmol/L (3.5-5.5); Sodium, Blood 133 mmol/L (136-145)
[2021-02-08 19:10] LABS: Anion Gap 7 mmol/L (6-16); Blood Urea Nitrogen 18 mg/dL (8-24); Bun/Creatinine Ratio 36.6 (12.0-20.0); CO2, Blood 25 mmol/L (21-32); Calcium, Blood 8.7 mg/dL (8.5-10.1); Chloride, Blood 103 mmol/L (98-108); Creatinine, Blood 0.49 mg/dL (0.60-1.20); Glomerular Filtration Rate >60 (60-); Glucose, Blood 239 mg/dL (70-99); Potassium, Blood 3.7 mmol/L (3.5-5.5); Sodium, Blood 135 mmol/L (136-145)
== END 2021-02-08 20:00 | disposition left against medical advice (07) | DRG 638 ==
LOC: ER 06:39 → ERHOLD 11:02
PROVIDERS: Family Medicine; Nurse Practitioner Acute Care; ADMIT Internal Medicine
DX: E10.10 Type 1 diabetes mellitus with ketoacidosis without coma (principal); R65.10 Systemic inflammatory response syndrome (SIRS) of non-infectious origin without acute organ dysfunction; Z20.822 Contact with and (suspected) exposure to COVID-19; Z79.4 Long term (current) use of insulin
CPT/HCPCS: 36415; 80048; 80053; 81001; 82010; 82803; 82947; 83036; 83735; 85025; 93005; 93010; 96374; 96375; 99285-25; A9270; J1815; J1885; J2405; J7030; J7042; J7120; U0004

== ENCOUNTER 2021-02-10 02:04 | Inpatient (IN) | payer OTHER ==
[~2021-02-10] VITALS: Ht 172.7 cm; Wt 63.1 kg
[2021-02-10 03:22] LABS: Source, Urine Voided
[2021-02-10 03:25] LABS: BASOPHILS ABSOLUTE AUTO 0.11 K/mm3 (0.00-0.23); BASOPHILS PERCENT AUTO 1 % (0-2); EOSINOPHILS ABSOLUTE AUTO 0.01 K/mm3 (0.00-0.68); EOSINOPHILS PERCENT AUTO 0 % (0-6); Hematocrit 50.1 % (37.0-53.0); Hemoglobin 16.7 g/dL (13.5-17.5); IMMATURE GRAN PERCENT AUTO 3 % (0-1); LYMPHOCYTES ABSOLUTE AUTO 1.51 K/mm3 (0.84-5.20); LYMPHOCYTES PERCENT AUTO 16 % (21-46); MONOCYTES ABSOLUTE AUTO 0.63 K/mm3 (0.16-1.47); MONOCYTES PERCENT AUTO 7 % (4-13); Mean Corpuscular HGB 34.9 pg (26.0-34.0); Mean Corpuscular HGB Conc 33.3 g/dL (31.5-36.5); Mean Corpuscular Volume 105 fL (80-100); Mean Platelet Volume 8.7 fL (9.1-12.4); NEUTROPHILS PERCENT AUTO 73 % (41-73); Platelet Count 466 K/mm3 (150-400); RDW Coefficient Variation 13.2 % (11.7-14.2); Red Blood Cell Count 4.78 M/mm3 (4.30-5.90); White Blood Cell Count 9.46 K/mm3 (4.00-11.30)
[2021-02-10 03:25] LABS: Bilirubin, Urine Neg (Neg); Blood, Urine 1+ (Neg); Glucose Qualitative, Urine 4+ (Neg); Ketones, Urine 4+ (Neg); Leukocyte Esterase, Urine Neg (Neg); Nitrite, Urine Neg (Neg); Protein, Urine 2+ (Neg); Specific Gravity, Urine 1.025 (1.003-1.022); Urobilinogen, Urine NORM (Normal)
[2021-02-10 03:27] LABS: Appearance, Urine Clear (Clear); Color, Urine Pale Yellow (P-Yellow)
[2021-02-10 03:37] LABS: Bacteria Rare /hpf; Red Blood Cells, Urine 0-2 /hpf (0-2); Squamous Epithelial Cells Few /hpf (Few); White Blood Cells, Urine Rare /hpf (0-5); Yeast/Fungi Urine Few /hpf
[2021-02-10 04:38] LABS: Alanine Aminotransfer (ALT/SGP 45 U/L (12-78); Albumin, Blood 4.2 g/dL (3.4-5.0); Alk Phos 154 U/L (50-136); Anion Gap 28 mmol/L (6-16); Aspartate Aminotrans (AST/SGOT 20 U/L (12-37); Bilirubin, Total 0.7 mg/dL (0.1-1.0); Blood Urea Nitrogen 22 mg/dL (8-24); Bun/Creatinine Ratio 28.3 (12.0-20.0); CO2, Blood 6 mmol/L (21-32); Calcium, Blood 9.2 mg/dL (8.5-10.1); Chloride, Blood 94 mmol/L (98-108); Creatinine, Blood 0.78 mg/dL (0.60-1.20); Globulin, Blood 4.3 g/dL (2.2-4.0); Glomerular Filtration Rate >60 (60-); Glucose, Blood 519 mg/dL (70-99); Potassium, Blood 4.7 mmol/L (3.5-5.5); Sodium, Blood 128 mmol/L (136-145); Total Protein, Blood 8.5 g/dL (6.4-8.2)
[2021-02-10 05:19] LABS: Glucose, Blood 486 mg/dL (70-99)
[2021-02-10 06:09] LABS: SARS-Cov-2 (COVID-19) PCR, MMC NEGATIVE (NEGATIVE)
[2021-02-10 06:14] LABS: Glucose, Blood 477 mg/dL (70-99)
[2021-02-10 09:33] LABS: Anion Gap 20 mmol/L (6-16); Blood Urea Nitrogen 18 mg/dL (8-24); Bun/Creatinine Ratio 28.1 (12.0-20.0); CO2, Blood 6 mmol/L (21-32); Chloride, Blood 111 mmol/L (98-108); Creatinine, Blood 0.64 mg/dL (0.60-1.20); Glomerular Filtration Rate >60 (60-); Glucose, Blood 206 mg/dL (70-99); Potassium, Blood 4.4 mmol/L (3.5-5.5); Sodium, Blood 137 mmol/L (136-145)
[2021-02-10 09:37] LABS: Calcium, Blood 6.9 mg/dL (8.5-10.1)
[2021-02-10 16:31] LABS: Anion Gap 8 mmol/L (6-16); Blood Urea Nitrogen 9 mg/dL (8-24); Bun/Creatinine Ratio 18.8 (12.0-20.0); CO2, Blood 17 mmol/L (21-32); Calcium, Blood 7.3 mg/dL (8.5-10.1); Chloride, Blood 110 mmol/L (98-108); Creatinine, Blood 0.48 mg/dL (0.60-1.20); Glomerular Filtration Rate >60 (60-); Glucose, Blood 219 mg/dL (70-99); Potassium, Blood 3.6 mmol/L (3.5-5.5); Sodium, Blood 135 mmol/L (136-145)
[2021-02-10 22:21] LABS: Anion Gap 12 mmol/L (6-16); Blood Urea Nitrogen 11 mg/dL (8-24); Bun/Creatinine Ratio 20.5 (12.0-20.0); CO2, Blood 17 mmol/L (21-32); Calcium, Blood 8.2 mg/dL (8.5-10.1); Chloride, Blood 107 mmol/L (98-108); Creatinine, Blood 0.54 mg/dL (0.60-1.20); Glomerular Filtration Rate >60 (60-); Glucose, Blood 248 mg/dL (70-99); Potassium, Blood 3.3 mmol/L (3.5-5.5); Sodium, Blood 136 mmol/L (136-145)
[2021-02-11 03:47] LABS: Anion Gap 9 mmol/L (6-16); Blood Urea Nitrogen 12 mg/dL (8-24); CO2, Blood 22 mmol/L (21-32); Calcium, Blood 8.1 mg/dL (8.5-10.1); Chloride, Blood 104 mmol/L (98-108); Creatinine, Blood 0.57 mg/dL (0.60-1.20); Glomerular Filtration Rate >60 (60-); Glucose, Blood 279 mg/dL (70-99); Potassium, Blood 3.2 mmol/L (3.5-5.5); Sodium, Blood 135 mmol/L (136-145)
--- NOTE | 2021-02-11 06:46 | NUR ---
SHIFT SUMMARY PATIENT ALERT AND ORIENTED. HAD NO COMPLAINTS OF PAIN OR SHORTNESS OF BREATH. NO ACUTE ISSUES NOTED OVERNIGHT. IV PATENT AND FLUSHED. BED IN LOWEST POSITION WITH WHEELS LOCKED. CALL LIGHT WITHIN REACH. REPORT GIVEN TO ONCOMING RN.
[2021-02-11 10:21] LABS: Anion Gap 8 mmol/L (6-16); Blood Urea Nitrogen 11 mg/dL (8-24); Bun/Creatinine Ratio 22.8 (12.0-20.0); CO2, Blood 23 mmol/L (21-32); Calcium, Blood 8.3 mg/dL (8.5-10.1); Chloride, Blood 102 mmol/L (98-108); Creatinine, Blood 0.48 mg/dL (0.60-1.20); Glomerular Filtration Rate >60 (60-); Glucose, Blood 413 mg/dL (70-99); Potassium, Blood 3.5 mmol/L (3.5-5.5); Sodium, Blood 133 mmol/L (136-145)
--- NOTE | 2021-02-11 10:38 | NUR ---
PT AOX4 AND COOPERATIVE OF CARE. CBGs WELL CONTROLLED TODAY. NO DISTRESS NOTED. ALL PAPERWORK REVIEWED AND PT ESCORTED OUT TO N ENTRANCE. IV REMOVED PRIOR TO DISCHARGE. PT TO FOLLLOW UP NEEDED WITH PCP.
== END 2021-02-11 10:30 | disposition home or self-care (01) | DRG 638 ==
LOC: ER 02:04 → ERHOLD 04:53 → MEDS 22:12 → ENPENDDIS 02-11 10:27 → MEDS 02-11 10:30
PROVIDERS: Emergency Medicine; Family Medicine; ADMIT Internal Medicine
DX: E10.10 Type 1 diabetes mellitus with ketoacidosis without coma (principal); E87.1 Hypo-osmolality and hyponatremia; B37.42 Candidal balanitis; T24.109A Burn of first degree of unspecified site of unspecified lower limb, except ankle and foot, initial encounter; T22.10XA Burn of first degree of shoulder and upper limb, except wrist and hand, unspecified site, initial encounter; Z20.822 Contact with and (suspected) exposure to COVID-19; T20.10XA Burn of first degree of head, face, and neck, unspecified site, initial encounter; T25.222A Burn of second degree of left foot, initial encounter; X08.8XXA Exposure to other specified smoke, fire and flames, initial encounter; Z87.891 Personal history of nicotine dependence; Z79.4 Long term (current) use of insulin
CPT/HCPCS: 36415; 80048; 80053; 81001; 82947; 83690; 85025; 96374; 96375; 99285-25; A9270; J1815; J2405; J2550; J2765; J7030; J7042; J7120; U0004

== ENCOUNTER 2021-03-28 11:12 | Inpatient (IN) | payer OTHER ==
[~2021-03-28] VITALS: Ht 172.7 cm; Wt 68.6 kg
[2021-03-28 12:00] LABS: Calcium, Ionized (POC) 1.13 mmol/L (1.10-1.46); Chloride (POC) 104 mmol/L (98-108); Creatinine (POC) 0.7 mg/dL (0.8-1.3); Glucose (ISTAT POC) 545 mg/dL (70-99); Potassium (POC) 4.4 mmol/L (3.5-5.5); Sodium (POC) 131 mmol/L (135-148); Total CO2 (POC) 8 mmol/L (21-32)
[2021-03-28 12:14] LABS: BASOPHILS PERCENT AUTO 1 % (0-2); EOSINOPHILS ABSOLUTE AUTO 0.03 K/mm3 (0.00-0.68); EOSINOPHILS PERCENT AUTO 0 % (0-6); Hemoglobin 17.5 g/dL (13.5-17.5); IMMATURE GRAN ABSOLUTE AUTO 0.37 K/mm3 (0.00-0.10); IMMATURE GRAN PERCENT AUTO 3 % (0-1); LYMPHOCYTES ABSOLUTE AUTO 1.63 K/mm3 (0.84-5.20); LYMPHOCYTES PERCENT AUTO 12 % (21-46); MONOCYTES ABSOLUTE AUTO 0.62 K/mm3 (0.16-1.47); MONOCYTES PERCENT AUTO 4 % (4-13); Mean Corpuscular HGB 34.2 pg (26.0-34.0); Mean Corpuscular HGB Conc 34.3 g/dL (31.5-36.5); Mean Corpuscular Volume 100 fL (80-100); NEUTROPHILS PERCENT AUTO 81 % (41-73); Platelet Count 433 K/mm3 (150-400); RDW Coefficient Variation 11.6 % (11.7-14.2); RDW Standard Deviation 43.3 fL (35.1-46.3); Red Blood Cell Count 5.11 M/mm3 (4.30-5.90); White Blood Cell Count 14.15 K/mm3 (4.00-11.30)
[2021-03-28 12:16] LABS: Source, Urine Clean Catch
[2021-03-28 12:19] LABS: Bilirubin, Urine Neg (Neg); Blood, Urine 1+ (Neg); Color, Urine Yellow (P-Yellow); Glucose Qualitative, Urine 4+ (Neg); Ketones, Urine 4+ (Neg); Leukocyte Esterase, Urine Neg (Neg); Nitrite, Urine Neg (Neg); Protein, Urine 2+ (Neg); Specific Gravity, Urine 1.025 (1.003-1.022); Urobilinogen, Urine NORM (Normal)
[2021-03-28 12:34] LABS: Base Excess Venous -26.2 mmol/L; Bicarbonate Venous 8.1 mmol/L (24.0-30.0); PCO2 Venous 25.1 mmHg (38-42); pH Blood Venous 6.96 (7.34-7.37)
[2021-03-28 12:35] LABS: Alanine Aminotransfer (ALT/SGP 31 U/L (12-78); Albumin, Blood 4.9 g/dL (3.4-5.0); Albumin/Globulin Ratio 1.2 (0.8-1.8); Alk Phos 128 U/L (50-136); Anion Gap 26 mmol/L (6-16); Aspartate Aminotrans (AST/SGOT 17 U/L (12-37); Bilirubin, Total 0.7 mg/dL (0.1-1.0); Blood Urea Nitrogen 17 mg/dL (8-24); Bun/Creatinine Ratio 25.2 (12.0-20.0); CO2, Blood 6 mmol/L (21-32); Calcium, Blood 9.5 mg/dL (8.5-10.1); Chloride, Blood 96 mmol/L (98-108); Creatinine, Blood 0.68 mg/dL (0.60-1.20); Globulin, Blood 4.2 g/dL (2.2-4.0); Glomerular Filtration Rate >60 (60-); Glucose, Blood 506 mg/dL (70-99); Potassium, Blood 4.2 mmol/L (3.5-5.5); Sodium, Blood 128 mmol/L (136-145); Total Protein, Blood 9.1 g/dL (6.4-8.2)
[2021-03-28 12:46] LABS: Appearance, Urine Clear (Clear); Bacteria Mod /hpf; Squamous Epithelial Cells Few /hpf (Few); White Blood Cells, Urine 0-2 /hpf (0-5)
[2021-03-28 14:18] LABS: U Amphetamine Screen Not Detected; U Barbituate Screen Not Detected; U Benzodiazapine Screen Not Detected; U Buprenorphine Screen Not Detected; U Cannabinoids Screen DETECTED; U Cocaine Screen Not Detected; U Methadone Screen Not Detected; U Methamphetamine Screen Not Detected; U Opiates Screen Not Detected; U Oxycodone Screen Not Detected; U Phencyclidine Screen Not Detected; U Propoxyphene Screen Not Detected
[2021-03-28 15:28] LABS: SARS-Cov-2 (COVID-19) PCR, MMC NEGATIVE (NEGATIVE)
[2021-03-28 17:17] LABS: Anion Gap 21 mmol/L (6-16); Blood Urea Nitrogen 13 mg/dL (8-24); CO2, Blood 7 mmol/L (21-32); Calcium, Blood 7.7 mg/dL (8.5-10.1); Chloride, Blood 107 mmol/L (98-108); Creatinine, Blood 0.65 mg/dL (0.60-1.20); Glomerular Filtration Rate >60 (60-); Glucose, Blood 252 mg/dL (70-99); Potassium, Blood 4.3 mmol/L (3.5-5.5); Sodium, Blood 135 mmol/L (136-145)
[2021-03-28 20:07] LABS: Anion Gap 19 mmol/L (6-16); Blood Urea Nitrogen 10 mg/dL (8-24); Bun/Creatinine Ratio 13.7 (12.0-20.0); CO2, Blood 9 mmol/L (21-32); Calcium, Blood 7.6 mg/dL (8.5-10.1); Chloride, Blood 106 mmol/L (98-108); Creatinine, Blood 0.73 mg/dL (0.60-1.20); Glomerular Filtration Rate >60 (60-); Glucose, Blood 245 mg/dL (70-99); Potassium, Blood 4.2 mmol/L (3.5-5.5); Sodium, Blood 134 mmol/L (136-145)
[2021-03-29 00:43] LABS: Anion Gap 12 mmol/L (6-16); Blood Urea Nitrogen 10 mg/dL (8-24); Bun/Creatinine Ratio 15.6 (12.0-20.0); CO2, Blood 15 mmol/L (21-32); Calcium, Blood 7.8 mg/dL (8.5-10.1); Chloride, Blood 108 mmol/L (98-108); Creatinine, Blood 0.64 mg/dL (0.60-1.20); Glomerular Filtration Rate >60 (60-); Glucose, Blood 239 mg/dL (70-99); Potassium, Blood 3.4 mmol/L (3.5-5.5); Sodium, Blood 135 mmol/L (136-145)
[2021-03-29 04:08] LABS: BASOPHILS ABSOLUTE AUTO 0.03 K/mm3 (0.00-0.23); BASOPHILS PERCENT AUTO 0 % (0-2); EOSINOPHILS ABSOLUTE AUTO 0.04 K/mm3 (0.00-0.68); EOSINOPHILS PERCENT AUTO 0 % (0-6); Hematocrit 38.3 % (37.0-53.0); Hemoglobin 14.2 g/dL (13.5-17.5); IMMATURE GRAN ABSOLUTE AUTO 0.11 K/mm3 (0.00-0.10); IMMATURE GRAN PERCENT AUTO 1 % (0-1); LYMPHOCYTES ABSOLUTE AUTO 2.17 K/mm3 (0.84-5.20); LYMPHOCYTES PERCENT AUTO 24 % (21-46); MONOCYTES ABSOLUTE AUTO 0.92 K/mm3 (0.16-1.47); MONOCYTES PERCENT AUTO 10 % (4-13); Mean Corpuscular HGB 34.5 pg (26.0-34.0); Mean Corpuscular HGB Conc 37.1 g/dL (31.5-36.5); Mean Platelet Volume 8.6 fL (9.1-12.4); NEUTROPHILS ABSOLUTE AUTO 5.93 K/mm3 (1.96-9.15); NEUTROPHILS PERCENT AUTO 65 % (41-73); Platelet Count 325 K/mm3 (150-400); RDW Coefficient Variation 11.4 % (11.7-14.2); Red Blood Cell Count 4.12 M/mm3 (4.30-5.90)
[2021-03-29 04:10] LABS: Mean Corpuscular Volume 93 fL (80-100)
[2021-03-29 04:24] LABS: Anion Gap 9 mmol/L (6-16); Blood Urea Nitrogen 9 mg/dL (8-24); Bun/Creatinine Ratio 15.4 (12.0-20.0); CO2, Blood 18 mmol/L (21-32); Calcium, Blood 8.1 mg/dL (8.5-10.1); Chloride, Blood 107 mmol/L (98-108); Creatinine, Blood 0.59 mg/dL (0.60-1.20); Glomerular Filtration Rate >60 (60-); Glucose, Blood 221 mg/dL (70-99); Potassium, Blood 3.3 mmol/L (3.5-5.5); Sodium, Blood 134 mmol/L (136-145)
[2021-03-29 09:26] LABS: Anion Gap 7 mmol/L (6-16); Blood Urea Nitrogen 8 mg/dL (8-24); Bun/Creatinine Ratio 12.3 (12.0-20.0); CO2, Blood 20 mmol/L (21-32); Calcium, Blood 8.3 mg/dL (8.5-10.1); Chloride, Blood 106 mmol/L (98-108); Creatinine, Blood 0.65 mg/dL (0.60-1.20); Glomerular Filtration Rate >60 (60-); Glucose, Blood 219 mg/dL (70-99); Magnesium, Blood 1.7 mg/dL (1.6-2.4); Phosphorus, Blood 1.4 mg/dL (2.5-4.9); Potassium, Blood 3.6 mmol/L (3.5-5.5); Sodium, Blood 133 mmol/L (136-145)
[2021-03-29 12:28] LABS: Anion Gap 13 mmol/L (6-16); Blood Urea Nitrogen 7 mg/dL (8-24); Bun/Creatinine Ratio 11.5 (12.0-20.0); CO2, Blood 17 mmol/L (21-32); Calcium, Blood 8.4 mg/dL (8.5-10.1); Chloride, Blood 104 mmol/L (98-108); Creatinine, Blood 0.61 mg/dL (0.60-1.20); Glomerular Filtration Rate >60 (60-); Glucose, Blood 326 mg/dL (70-99); Potassium, Blood 3.7 mmol/L (3.5-5.5); Sodium, Blood 134 mmol/L (136-145)
== END 2021-03-29 13:40 | disposition home or self-care (01) | DRG 638 ==
LOC: ER 11:12 → ICUW 13:01 → ICUE 13:01
PROVIDERS: Emergency Medicine; Internal Medicine; Nurse Practitioner Acute Care; Physician Assistant; ADMIT Internal Medicine
DX: E10.10 Type 1 diabetes mellitus with ketoacidosis without coma (principal); R65.10 Systemic inflammatory response syndrome (SIRS) of non-infectious origin without acute organ dysfunction; E87.1 Hypo-osmolality and hyponatremia; Z20.822 Contact with and (suspected) exposure to COVID-19; K21.9 Gastro-esophageal reflux disease without esophagitis
CPT/HCPCS: 36415; 80047; 80048; 80053; 81001; 82803; 82947; 83735; 84100; 85014; 85025; 93005; 93010; 96361; 96374; 99285-25; A9270; J1815; J2405; J2765; J7030; J7040; J7042; J7120; U0004

== ENCOUNTER 2021-04-05 09:24 | Inpatient (IN) | payer OTHER ==
[~2021-04-05] VITALS: Ht 172.7 cm; Wt 67.6 kg
[~2021-04-05 09:24] MED LIST changes: -BASAGLAR K100 UNIT/8 SC; +INSULANPEN SC
[2021-04-05 10:10] LABS: BASOPHILS ABSOLUTE AUTO 0.13 K/mm3 (0.00-0.23); BASOPHILS PERCENT AUTO 1 % (0-2); EOSINOPHILS ABSOLUTE AUTO 0.01 K/mm3 (0.00-0.68); EOSINOPHILS PERCENT AUTO 0 % (0-6); Hematocrit 52.8 % (37.0-53.0); IMMATURE GRAN ABSOLUTE AUTO 0.35 K/mm3 (0.00-0.10); IMMATURE GRAN PERCENT AUTO 3 % (0-1); LYMPHOCYTES ABSOLUTE AUTO 2.02 K/mm3 (0.84-5.20); LYMPHOCYTES PERCENT AUTO 16 % (21-46); MONOCYTES ABSOLUTE AUTO 0.64 K/mm3 (0.16-1.47); MONOCYTES PERCENT AUTO 5 % (4-13); Mean Corpuscular HGB 34.1 pg (26.0-34.0); Mean Corpuscular HGB Conc 34.1 g/dL (31.5-36.5); Mean Corpuscular Volume 100 fL (80-100); Mean Platelet Volume 8.9 fL (9.1-12.4); NEUTROPHILS ABSOLUTE AUTO 9.47 K/mm3 (1.96-9.15); NEUTROPHILS PERCENT AUTO 75 % (41-73); Platelet Count 572 K/mm3 (150-400); RDW Coefficient Variation 12.1 % (11.7-14.2); Red Blood Cell Count 5.28 M/mm3 (4.30-5.90); White Blood Cell Count 12.62 K/mm3 (4.00-11.30)
[2021-04-05 10:32] LABS: Alanine Aminotransfer (ALT/SGP 29 U/L (12-78); Albumin, Blood 4.7 g/dL (3.4-5.0); Albumin/Globulin Ratio 1.1 (0.8-1.8); Alk Phos 133 U/L (50-136); Anion Gap 22 mmol/L (6-16); Aspartate Aminotrans (AST/SGOT 22 U/L (12-37); Bilirubin, Total 0.6 mg/dL (0.1-1.0); Blood Urea Nitrogen 15 mg/dL (8-24); CO2, Blood 9 mmol/L (21-32); Calcium, Blood 9.1 mg/dL (8.5-10.1); Chloride, Blood 97 mmol/L (98-108); Creatinine, Blood 0.68 mg/dL (0.60-1.20); Globulin, Blood 4.3 g/dL (2.2-4.0); Glomerular Filtration Rate >60 (60-); Glucose, Blood 472 mg/dL (70-99); Potassium, Blood 4.9 mmol/L (3.5-5.5); Sodium, Blood 128 mmol/L (136-145)
[2021-04-05 10:37] LABS: pH Blood Venous 6.95 (7.34-7.37)
[2021-04-05 10:38] LABS: Bicarbonate Venous 9.1 mmol/L (24.0-30.0); PCO2 Venous 31 mmHg (38-42); PO2 Venous 168 mmHg (38-42)
[2021-04-05 10:43] LABS: Base Excess Venous -25.2 mmol/L
[2021-04-05 11:22] LABS: Source, Urine Clean Catch
[2021-04-05 11:27] LABS: Appearance, Urine Clear (Clear); Bilirubin, Urine Neg (Neg); Blood, Urine 2+ (Neg); Color, Urine Yellow (P-Yellow); Glucose Qualitative, Urine 4+ (Neg); Ketones, Urine 4+ (Neg); Leukocyte Esterase, Urine Neg (Neg); Nitrite, Urine Neg (Neg); Protein, Urine 2+ (Neg); Urobilinogen, Urine NORM (Normal)
[2021-04-05 11:40] LABS: White Blood Cells, Urine 0-2 /hpf (0-5)
[2021-04-05 11:41] LABS: Red Blood Cells, Urine 0-2 /hpf (0-2); Squamous Epithelial Cells Few /hpf (Few); Yeast/Fungi Urine Few /hpf
[2021-04-05 11:43] LABS: Bacteria Few /hpf
--- NOTE | 2021-04-05 13:45 | NUR ---
ADMIT PT ARRIVED TO ICU ROOM 1 AT 1315 VIA ER BED. PT IS AWAKE, ALERT, AND ORIENTED. PT STOOD UP TO TRANSFER TO BED. PT DENIES NAUSEA, SOB, OR PAIN AT THIS TIME. INSULIN GTT, NS, AND KCL INFUSING. VITAL SIGNS STABLE. PT ON ROOM AIR. WILL CONTINUE TO MONITOR.
[2021-04-05 15:36] LABS: Blood Urea Nitrogen 12 mg/dL (8-24); Calcium, Blood 7.6 mg/dL (8.5-10.1); Chloride, Blood 103 mmol/L (98-108); Glucose, Blood 259 mg/dL (70-99); Potassium, Blood 5.1 mmol/L (3.5-5.5); Sodium, Blood 131 mmol/L (136-145)
[2021-04-05 16:01] LABS: Anion Gap 20 mmol/L (6-16); Bun/Creatinine Ratio 16.9 (12.0-20.0); CO2, Blood 8 mmol/L (21-32); Creatinine, Blood 0.71 mg/dL (0.60-1.20); Glomerular Filtration Rate >60 (60-)
--- NOTE | 2021-04-05 17:35 | NUR ---
SHIFT SUMMARY NO ACUTE CHANGES. PT REMAINS ALERT AND ORIENTED. PT WITH PERIODS OF ANXEITY. PT VOICES FRUSTRATIONS WITH BEING IN THE HOSPITAL. VITAL SIGNS STABLE. INSULIN GTT INFUSING AT 4 UNITS/HR. D5 1/2NS INFUSING AT 125 ML/HR. PT USING URINAL TO VOID LARGE VOLUMES OF CLEAR YELLOW URINE INDEPENDENTLY. WILL CONTINUE TO MONITOR AND REPORT OFF TO ONCOMING RN.
--- NOTE | 2021-04-05 19:26 | NUR ---
PATIENT REPORT RECEIVED FROM JADA PRECIADO RN PATIENT AA0X4 ROOM AIR NSR NOTED IN THE MONITOR INSULIN 4 SKIN INTACT WILL TO CONITUNE TO MONITOR
[2021-04-05 20:36] LABS: Anion Gap 13 mmol/L (6-16); Blood Urea Nitrogen 9 mg/dL (8-24); Bun/Creatinine Ratio 13.7 (12.0-20.0); CO2, Blood 13 mmol/L (21-32); Calcium, Blood 7.9 mg/dL (8.5-10.1); Chloride, Blood 106 mmol/L (98-108); Creatinine, Blood 0.66 mg/dL (0.60-1.20); Glomerular Filtration Rate >60 (60-); Glucose, Blood 179 mg/dL (70-99); Potassium, Blood 4.1 mmol/L (3.5-5.5); Sodium, Blood 132 mmol/L (136-145)
--- NOTE | 2021-04-05 21:52 | NUR ---
PATIENT BS 120, ANION G 13, CO2 13 MD DAVIS CALLED AND MADE AWARE OREDERED 1. ADA DIET 2. ACC EVERY HOURS 3. DECREASE INSULIN DRIP FROM 4 TO 2 3. CMP 0000 WILL TO CONTINUE TO MONITOR
[2021-04-06 00:50] LABS: Alanine Aminotransfer (ALT/SGP 22 U/L (12-78); Albumin, Blood 3.4 g/dL (3.4-5.0); Alk Phos 91 U/L (50-136); Anion Gap 11 mmol/L (6-16); Aspartate Aminotrans (AST/SGOT 13 U/L (12-37); Bilirubin, Total 0.7 mg/dL (0.1-1.0); Blood Urea Nitrogen 9 mg/dL (8-24); Bun/Creatinine Ratio 15.7 (12.0-20.0); CO2, Blood 16 mmol/L (21-32); Calcium, Blood 8.3 mg/dL (8.5-10.1); Chloride, Blood 108 mmol/L (98-108); Creatinine, Blood 0.58 mg/dL (0.60-1.20); Globulin, Blood 3.4 g/dL (2.2-4.0); Glomerular Filtration Rate >60 (60-); Glucose, Blood 172 mg/dL (70-99); Potassium, Blood 3.6 mmol/L (3.5-5.5); Sodium, Blood 135 mmol/L (136-145)
[2021-04-06 00:54] LABS: Total Protein, Blood 6.8 g/dL (6.4-8.2)
[2021-04-06 04:18] LABS: BASOPHILS ABSOLUTE AUTO 0.04 K/mm3 (0.00-0.23); BASOPHILS PERCENT AUTO 1 % (0-2); EOSINOPHILS ABSOLUTE AUTO 0.05 K/mm3 (0.00-0.68); EOSINOPHILS PERCENT AUTO 1 % (0-6); Hematocrit 46.8 % (37.0-53.0); Hemoglobin 16.7 g/dL (13.5-17.5); IMMATURE GRAN ABSOLUTE AUTO 0.09 K/mm3 (0.00-0.10); IMMATURE GRAN PERCENT AUTO 1 % (0-1); LYMPHOCYTES ABSOLUTE AUTO 1.59 K/mm3 (0.84-5.20); LYMPHOCYTES PERCENT AUTO 22 % (21-46); MONOCYTES ABSOLUTE AUTO 0.87 K/mm3 (0.16-1.47); MONOCYTES PERCENT AUTO 12 % (4-13); Mean Corpuscular HGB 33.5 pg (26.0-34.0); Mean Corpuscular HGB Conc 35.7 g/dL (31.5-36.5); Mean Platelet Volume 8.1 fL (9.1-12.4); NEUTROPHILS ABSOLUTE AUTO 4.59 K/mm3 (1.96-9.15); NEUTROPHILS PERCENT AUTO 64 % (41-73); Platelet Count 438 K/mm3 (150-400); RDW Coefficient Variation 11.8 % (11.7-14.2); RDW Standard Deviation 40.1 fL (35.1-46.3); Red Blood Cell Count 4.99 M/mm3 (4.30-5.90); White Blood Cell Count 7.23 K/mm3 (4.00-11.30)
[2021-04-06 04:21] LABS: Mean Corpuscular Volume 94 fL (80-100)
[2021-04-06 04:36] LABS: Alanine Aminotransfer (ALT/SGP 23 U/L (12-78); Albumin, Blood 3.8 g/dL (3.4-5.0); Albumin/Globulin Ratio 1.1 (0.8-1.8); Alk Phos 100 U/L (50-136); Anion Gap 9 mmol/L (6-16); Aspartate Aminotrans (AST/SGOT 12 U/L (12-37); Bilirubin, Total 0.7 mg/dL (0.1-1.0); Blood Urea Nitrogen 10 mg/dL (8-24); Bun/Creatinine Ratio 14.1 (12.0-20.0); CO2, Blood 21 mmol/L (21-32); Calcium, Blood 8.8 mg/dL (8.5-10.1); Chloride, Blood 106 mmol/L (98-108); Creatinine, Blood 0.71 mg/dL (0.60-1.20); Globulin, Blood 3.5 g/dL (2.2-4.0); Glomerular Filtration Rate >60 (60-); Glucose, Blood 81 mg/dL (70-99); Potassium, Blood 3.7 mmol/L (3.5-5.5); Sodium, Blood 136 mmol/L (136-145); Total Protein, Blood 7.3 g/dL (6.4-8.2)
[2021-04-06 08:06] LABS: U Amphetamine Screen Not Detected; U Barbituate Screen Not Detected; U Benzodiazapine Screen Not Detected; U Buprenorphine Screen Not Detected; U Cannabinoids Screen DETECTED; U Cocaine Screen Not Detected; U Methadone Screen Not Detected; U Methamphetamine Screen Not Detected; U Opiates Screen Not Detected; U Oxycodone Screen Not Detected; U Phencyclidine Screen Not Detected; U Propoxyphene Screen Not Detected
--- NOTE | 2021-04-06 08:37 | NUR ---
0804 DR SIMON CALLED, REPEAT BMP AND POSSIBLE DISCHARGE TODAY
[2021-04-06 08:59] LABS: Anion Gap 16 mmol/L (6-16); Blood Urea Nitrogen 11 mg/dL (8-24); Bun/Creatinine Ratio 15.3 (12.0-20.0); CO2, Blood 14 mmol/L (21-32); Calcium, Blood 8.2 mg/dL (8.5-10.1); Chloride, Blood 103 mmol/L (98-108); Creatinine, Blood 0.72 mg/dL (0.60-1.20); Glomerular Filtration Rate >60 (60-); Glucose, Blood 284 mg/dL (70-99); Sodium, Blood 133 mmol/L (136-145)
--- NOTE | 2021-04-06 09:43 | NUR ---
DR SIMON IN ROOM, NS BOLUS STARTED, BMP AT NOON TO RE-EVALUATE AND THEN POSSIBLE DISCHARGE HOME
[2021-04-06 12:39] LABS: Anion Gap 12 mmol/L (6-16); Blood Urea Nitrogen 9 mg/dL (8-24); Bun/Creatinine Ratio 16.8 (12.0-20.0); CO2, Blood 18 mmol/L (21-32); Chloride, Blood 104 mmol/L (98-108); Creatinine, Blood 0.54 mg/dL (0.60-1.20); Glomerular Filtration Rate >60 (60-); Glucose, Blood 289 mg/dL (70-99); Potassium, Blood 3.8 mmol/L (3.5-5.5); Sodium, Blood 134 mmol/L (136-145)
--- NOTE | 2021-04-06 13:00 | NUR ---
REPORTED NEW BMP RESULTS TO DR SIMON, SHE SAYS SHE IS GOING TO DISCHARGE HIM HOME
[2021-04-06] MEDS ORDERED: AMOX500 PO (13:34)
[2021-04-06] MEDS ORDERED: Acetaminophen650 M1 PO (13:34)
[2021-04-06] MEDS ORDERED: VISBIOME 112.51 EACH PO (13:35)
--- NOTE | 2021-04-06 14:15 | NUR ---
PATIENT AMBULATING OUT OF THE HOSPITAL
--- NOTE | 2021-04-06 14:19 | NUR ---
DISCHARGED HOME, DKA STABLE, ALERT AND ORIENTED X4, MAKES NEED SKNOWN, STATES UNDERSTANDING OF DISCHARGE MEDICATION, LS CLEAR THROUGH OUT, DENIES CHEST PAIN, NO MURMUR OR GALLOP, DENIES N/V, SKIN INTACT, IV SITES REMOVED, VS REVEIWED, DISCHARGED EDUCATION GIVEN, PLEASANT TO CARE, MAKES NEEDS KNOWN
== END 2021-04-06 14:39 | disposition home or self-care (01) | DRG 638 ==
LOC: ER 09:24 → ICUE 11:39 → ICUW 11:39 → ICUE 13:15
PROVIDERS: Emergency Medicine; Internal Medicine; Nurse Practitioner Acute Care; Student in an Organized Health Care Education/Training Program; ADMIT Internal Medicine
DX: E10.10 Type 1 diabetes mellitus with ketoacidosis without coma (principal); R65.10 Systemic inflammatory response syndrome (SIRS) of non-infectious origin without acute organ dysfunction; K21.9 Gastro-esophageal reflux disease without esophagitis; Z87.891 Personal history of nicotine dependence; Z98.818 Other dental procedure status; Z79.4 Long term (current) use of insulin
CPT/HCPCS: 36415; 71046; 80048; 80053; 81001; 82010; 82803; 82947; 83690; 85025; 87086; 93005; 93010; 96374; 99285-25; A9270; J1815; J2405; J2765; J3480; J7030; J7042; J7120

== ENCOUNTER 2021-04-17 03:56 | Inpatient (IN) | payer OTHER ==
[~2021-04-17] VITALS: Ht 172.7 cm; Wt 70.3 kg
[~2021-04-17 03:56] MED LIST changes: +AMOX500 PO; +Acetaminophen650 M1 PO; +VISBIOME 112.51 EACH PO
[2021-04-17 04:30] LABS: Hematocrit 52.8 % (37.0-53.0); Hemoglobin 17.7 g/dL (13.5-17.5); Mean Corpuscular HGB 34.2 pg (26.0-34.0); Mean Corpuscular HGB Conc 33.5 g/dL (31.5-36.5); Mean Corpuscular Volume 102 fL (80-100); Mean Platelet Volume 9.3 fL (9.1-12.4); Platelet Count 463 K/mm3 (150-400); RDW Coefficient Variation 12.5 % (11.7-14.2); RDW Standard Deviation 48.2 fL (35.1-46.3); Red Blood Cell Count 5.17 M/mm3 (4.30-5.90); White Blood Cell Count 29.71 K/mm3 (4.00-11.30)
[2021-04-17 05:00] LABS: Alanine Aminotransfer (ALT/SGP 38 U/L (12-78); Albumin, Blood 4.9 g/dL (3.4-5.0); Albumin/Globulin Ratio 1.1 (0.8-1.8); Alk Phos 143 U/L (50-136); Anion Gap 24 mmol/L (6-16); Aspartate Aminotrans (AST/SGOT 49 U/L (12-37); Bilirubin, Total 0.5 mg/dL (0.1-1.0); Blood Urea Nitrogen 24 mg/dL (8-24); Bun/Creatinine Ratio 29.6 (12.0-20.0); CO2, Blood 7 mmol/L (21-32); Calcium, Blood 9.4 mg/dL (8.5-10.1); Chloride, Blood 96 mmol/L (98-108); Creatinine, Blood 0.81 mg/dL (0.60-1.20); Globulin, Blood 4.6 g/dL (2.2-4.0); Glomerular Filtration Rate >60 (60-); Glucose, Blood 549 mg/dL (70-99); Potassium, Blood 6.2 mmol/L (3.5-5.5); Sodium, Blood 127 mmol/L (136-145); Total Protein, Blood 9.5 g/dL (6.4-8.2)
[2021-04-17 05:05] LABS: BAND PERCENT MAN 20 % (0-8); BASOPHILS ABSOLUTE MAN 0.29 K/mm3 (0.00-0.23); BASOPHILS PERCENT MAN 1 % (0-2); EOSINOPHILS PERCENT MAN 0 % (0-6); LYMPHOCYTES ABSOLUTE MAN 3.26 K/mm3 (0.84-5.20); LYMPHOCYTES PERCENT MAN 11 % (21-46); METAMYELOCYTE ABSOLUTE MAN 0.29 K/mm3 (0.00-0.00); METAMYELOCYTE PERCENT MAN 1 % (0-0); MONOCYTES ABSOLUTE MAN 1.18 K/mm3 (0.16-1.47); MONOCYTES PERCENT MAN 4 % (4-13); MYELOCYTE ABSOLUTE MAN 0.59 K/mm3 (0.00-0.00); MYELOCYTE PERCENT MAN 2 % (0-0); NEUTROPHILS ABSOLUTE MAN 24.06 K/mm3 (1.96-9.15); SEG NEUTROPHILS PERCENT MAN 61 % (41-73); TOTAL CELLS COUNTED 100
[2021-04-17 05:54] LABS: Beta-hydroxybutyrate 114.2 mg/dL (0.2-2.8)
[2021-04-17 06:02] LABS: Source, Urine Clean Catch
[2021-04-17 06:06] LABS: Bilirubin, Urine Neg (Neg); Blood, Urine 3+ (Neg); Glucose Qualitative, Urine 4+ (Neg); Ketones, Urine 4+ (Neg); Leukocyte Esterase, Urine Neg (Neg); Nitrite, Urine Neg (Neg); Protein, Urine 3+ (Neg); Urobilinogen, Urine NORM (Normal)
[2021-04-17 06:20] LABS: Appearance, Urine Clear (Clear); Color, Urine Yellow (P-Yellow)
[2021-04-17 06:21] LABS: Amorphous Light (0-Heavy); Bacteria Not Seen /hpf; Red Blood Cells, Urine 0-2 /hpf (0-2); Squamous Epithelial Cells Few /hpf (Few); White Blood Cells, Urine Rare /hpf (0-5)
[2021-04-17 08:07] LABS: PCO2 Venous 22.2 mmHg (38-42); PO2 Venous 106 mmHg (38-42)
[2021-04-17 08:08] LABS: Base Excess Venous 6.6 mmol/L; Bicarbonate Venous -30.8 mmol/L (24.0-30.0); pH Blood Venous 6.81 (7.34-7.37)
[2021-04-17 08:11] LABS: Anion Gap 24 mmol/L (6-16); Blood Urea Nitrogen 23 mg/dL (8-24); Bun/Creatinine Ratio 25.6 (12.0-20.0); CO2, Blood 5 mmol/L (21-32); Calcium, Blood 9.2 mg/dL (8.5-10.1); Chloride, Blood 100 mmol/L (98-108); Glomerular Filtration Rate >60 (60-); Glucose, Blood 450 mg/dL (70-99); Potassium, Blood 6.1 mmol/L (3.5-5.5); Sodium, Blood 129 mmol/L (136-145)
[2021-04-17 14:11] LABS: Anion Gap 23 mmol/L (6-16); Blood Urea Nitrogen 16 mg/dL (8-24); Bun/Creatinine Ratio 20.7 (12.0-20.0); CO2, Blood 6 mmol/L (21-32); Calcium, Blood 8.2 mg/dL (8.5-10.1); Chloride, Blood 107 mmol/L (98-108); Creatinine, Blood 0.77 mg/dL (0.60-1.20); Glomerular Filtration Rate >60 (60-); Glucose, Blood 235 mg/dL (70-99); Potassium, Blood 4.8 mmol/L (3.5-5.5); Sodium, Blood 136 mmol/L (136-145)
--- NOTE | 2021-04-17 17:16 | NUR ---
SHIFT ASSESSMENT NEURO: INITIAL HIGH ANXIETY/AGITATION DECREASED TO CALMER STATE. NO AMS DURING THIS SHIFT. CARDIAC: SINUS TACH, NO ECTOPY NOTED. SEE I/O'S FOR IVF. REMOVED 2 IVS DUE TO HIGH PAIN AT INSERTION SITE WITH NO OTHER S/S OF INFILTRATION. PLACED NEW 20G RFA IV WHICH PT TOLERATED WELL. SEVERE METABOLIC ACIDOSIS/DKA TREATED WITH BICARB GTT, NS, D5% W/ 0.455NS, AND INSULIN GTT. RESP: ON RA SINCE ARRIVAL. INITIAL TACHYPNEA/KUSSMAUL'S RESPIRATIONS IMPROVED TO WNL OF 1700. GI: BGL DOWN TO 205MG/DL ON FIRST BLOOD SUGAR CHECK. TITRATING INSULIN S/P ADDITION OF D5 0.45%NS. : GOOD UOP VIA URINAL. MK: UP AD-TOBY W/ STEADY GAIT PSYCH: PT CALLED HIS FATHER TO GIVE UPDATE.
--- NOTE | 2021-04-17 17:57 | NUR ---
BLOOD DRAWN AND SENT TO LAB.
[2021-04-17 18:45] LABS: Anion Gap 20 mmol/L (6-16); Blood Urea Nitrogen 12 mg/dL (8-24); Bun/Creatinine Ratio 17.8 (12.0-20.0); CO2, Blood 7 mmol/L (21-32); Calcium, Blood 7.7 mg/dL (8.5-10.1); Chloride, Blood 107 mmol/L (98-108); Creatinine, Blood 0.68 mg/dL (0.60-1.20); Glomerular Filtration Rate >60 (60-); Glucose, Blood 265 mg/dL (70-99); Potassium, Blood 4.2 mmol/L (3.5-5.5); Sodium, Blood 134 mmol/L (136-145)
[2021-04-18 00:30] LABS: Anion Gap 12 mmol/L (6-16); Blood Urea Nitrogen 9 mg/dL (8-24); Bun/Creatinine Ratio 19.3 (12.0-20.0); CO2, Blood 16 mmol/L (21-32); Calcium, Blood 7.8 mg/dL (8.5-10.1); Chloride, Blood 109 mmol/L (98-108); Creatinine, Blood 0.47 mg/dL (0.60-1.20); Glomerular Filtration Rate >60 (60-); Glucose, Blood 205 mg/dL (70-99); Potassium, Blood 3.1 mmol/L (3.5-5.5); Sodium, Blood 137 mmol/L (136-145)
--- NOTE | 2021-04-18 06:26 | NUR ---
Shift summary. Pt rested quietly in bed throughout shift. Pt on room air, stable vital signs throughout shift. IVs in place, R/arm, L/hand. Insulin running at 2.5 unit/kg/hr, D5W1/2NS 150 ml/hr, Bicarb 75 ml/hr, Potassium chloride 50 ml/hr. Pt alert and oriented, follows commands. See shift assessment/flowsheet for details. Will continue to monitor and report off to dayshift RN.
[2021-04-18 06:27] LABS: BASOPHILS ABSOLUTE AUTO 0.01 K/mm3 (0.00-0.23); BASOPHILS PERCENT AUTO 0 % (0-2); EOSINOPHILS ABSOLUTE AUTO 0.01 K/mm3 (0.00-0.68); EOSINOPHILS PERCENT AUTO 0 % (0-6); IMMATURE GRAN ABSOLUTE AUTO 0.08 K/mm3 (0.00-0.10); IMMATURE GRAN PERCENT AUTO 1 % (0-1); LYMPHOCYTES ABSOLUTE AUTO 1.31 K/mm3 (0.84-5.20); LYMPHOCYTES PERCENT AUTO 14 % (21-46); MONOCYTES ABSOLUTE AUTO 0.92 K/mm3 (0.16-1.47); MONOCYTES PERCENT AUTO 10 % (4-13); Mean Corpuscular HGB Conc 36.6 g/dL (31.5-36.5); Mean Platelet Volume 8.5 fL (9.1-12.4); NEUTROPHILS ABSOLUTE AUTO 7.38 K/mm3 (1.96-9.15); NEUTROPHILS PERCENT AUTO 76 % (41-73); Platelet Count 273 K/mm3 (150-400); RDW Coefficient Variation 12.4 % (11.7-14.2); RDW Standard Deviation 42.5 fL (35.1-46.3); Red Blood Cell Count 4.41 M/mm3 (4.30-5.90); White Blood Cell Count 9.71 K/mm3 (4.00-11.30)
[2021-04-18 06:32] LABS: Mean Corpuscular Volume 93 fL (80-100)
[2021-04-18 06:42] LABS: Alanine Aminotransfer (ALT/SGP 21 U/L (12-78); Albumin/Globulin Ratio 0.9 (0.8-1.8); Alk Phos 83 U/L (50-136); Anion Gap 10 mmol/L (6-16); Aspartate Aminotrans (AST/SGOT 26 U/L (12-37); Bilirubin, Total 0.4 mg/dL (0.1-1.0); Blood Urea Nitrogen 8 mg/dL (8-24); Bun/Creatinine Ratio 17.4 (12.0-20.0); CO2, Blood 18 mmol/L (21-32); Calcium, Blood 8.1 mg/dL (8.5-10.1); Chloride, Blood 109 mmol/L (98-108); Creatinine, Blood 0.46 mg/dL (0.60-1.20); Globulin, Blood 3.4 g/dL (2.2-4.0); Glomerular Filtration Rate >60 (60-); Glucose, Blood 212 mg/dL (70-99); Potassium, Blood 3.1 mmol/L (3.5-5.5); Sodium, Blood 137 mmol/L (136-145)
[2021-04-18 06:51] LABS: Total Protein, Blood 6.4 g/dL (6.4-8.2)
[2021-04-18 12:31] LABS: Anion Gap 10 mmol/L (6-16); Blood Urea Nitrogen 8 mg/dL (8-24); Bun/Creatinine Ratio 16.8 (12.0-20.0); CO2, Blood 19 mmol/L (21-32); Chloride, Blood 106 mmol/L (98-108); Creatinine, Blood 0.48 mg/dL (0.60-1.20); Glomerular Filtration Rate >60 (60-); Glucose, Blood 305 mg/dL (70-99); Potassium, Blood 3.3 mmol/L (3.5-5.5); Sodium, Blood 135 mmol/L (136-145)
--- NOTE | 2021-04-18 18:08 | NUR ---
Pt recieved on bed AAOX4, on room air tolerating well. Pt assessmendt done. Pt has a Bicarb drip, Insulin drip and K infusing through PIVs. Pt able to move all extremities and denies pain. 1100 Dr. Guevara seen and assesesed pt; orders recieved. 1400 Pt given food, Lantus given and Insulin drip D/C 90 minutes after. 1600 Pt started on Humulog with Sliding scale, pt tolerating well. 174 Pt decided to leave AMA; Dr. Guevara notified. Pt explain the need to remain in the hospital but pt refused. Pt left AMA, Charge, PAOLO Arroyo, notified.
== END 2021-04-18 18:12 | disposition left against medical advice (07) | DRG 639 ==
LOC: ER 03:56 → ERHOLD 03:57 → ICUW 13:42
PROVIDERS: Student in an Organized Health Care Education/Training Program; ADMIT Internal Medicine
DX: E10.10 Type 1 diabetes mellitus with ketoacidosis without coma (principal); B37.2 Candidiasis of skin and nail; E86.0 Dehydration; E87.5 Hyperkalemia; Z87.891 Personal history of nicotine dependence; Z28.21 Immunization not carried out because of patient refusal
CPT/HCPCS: 36415; 71046; 80048; 80053; 81001; 82010; 82803; 82947; 85025; 93005; 93010; 96365; 96372; 96375; 96376; 99285-25; A9270; G0378; J0610; J1650; J1815; J3480; J7030; J7042

== ENCOUNTER 2021-04-26 17:51 | Inpatient (IN) | payer OTHER ==
[~2021-04-26] VITALS: Ht 172.7 cm; Wt 64.2 kg
[2021-04-26 18:31] LABS: Hemoglobin 18.6 g/dL (13.5-17.5); Mean Corpuscular HGB 33.8 pg (26.0-34.0); Mean Corpuscular HGB Conc 33.6 g/dL (31.5-36.5); Mean Corpuscular Volume 101 fL (80-100); Mean Platelet Volume 9.1 fL (9.1-12.4); Platelet Count 667 K/mm3 (150-400); RDW Coefficient Variation 12.4 % (11.7-14.2); RDW Standard Deviation 46.5 fL (35.1-46.3); White Blood Cell Count 13.33 K/mm3 (4.00-11.30)
[2021-04-26 18:32] LABS: Hematocrit 55.4 % (37.0-53.0)
[2021-04-26 18:49] LABS: Base Excess Venous -25.3 mmol/L; Bicarbonate Venous 9.1 mmol/L (24.0-30.0); PCO2 Venous 24.8 mmHg (38-42); PO2 Venous 74.3 mmHg (38-42)
[2021-04-26 19:33] LABS: Alanine Aminotransfer (ALT/SGP 42 U/L (12-78); Albumin, Blood 5.2 g/dL (3.4-5.0); Albumin/Globulin Ratio 1.1 (0.8-1.8); Alk Phos 133 U/L (50-136); Anion Gap 29 mmol/L (6-16); Aspartate Aminotrans (AST/SGOT 16 U/L (12-37); Bilirubin, Total 0.7 mg/dL (0.1-1.0); Blood Urea Nitrogen 25 mg/dL (8-24); Bun/Creatinine Ratio 26.7 (12.0-20.0); CO2, Blood 6 mmol/L (21-32); Calcium, Blood 10.3 mg/dL (8.5-10.1); Chloride, Blood 89 mmol/L (98-108); Creatinine, Blood 0.94 mg/dL (0.60-1.20); Globulin, Blood 4.6 g/dL (2.2-4.0); Glomerular Filtration Rate >60 (60-); Glucose, Blood 646 mg/dL (70-99); Potassium, Blood 4.6 mmol/L (3.5-5.5); Sodium, Blood 124 mmol/L (136-145); Total Protein, Blood 9.8 g/dL (6.4-8.2)
[2021-04-26 19:55] LABS: BAND PERCENT MAN 3 % (0-8); BASOPHILS PERCENT MAN 0 % (0-2); EOSINOPHILS PERCENT MAN 0 % (0-6); LYMPHOCYTES ABSOLUTE MAN 2.13 K/mm3 (0.84-5.20); LYMPHOCYTES PERCENT MAN 16 % (21-46); METAMYELOCYTE ABSOLUTE MAN 0.39 K/mm3 (0.00-0.00); METAMYELOCYTE PERCENT MAN 3 % (0-0); MONOCYTES ABSOLUTE MAN 0.79 K/mm3 (0.16-1.47); MONOCYTES PERCENT MAN 6 % (4-13); MYELOCYTE ABSOLUTE MAN 0.13 K/mm3 (0.00-0.00); MYELOCYTE PERCENT MAN 1 % (0-0); NEUTROPHILS ABSOLUTE MAN 9.86 K/mm3 (1.96-9.15); SEG NEUTROPHILS PERCENT MAN 71 % (41-73); TOTAL CELLS COUNTED 100
[2021-04-26 19:55] LABS: Source, Urine Clean Catch
[2021-04-26 20:02] LABS: Appearance, Urine Clear (Clear); Bilirubin, Urine Neg (Neg); Blood, Urine 1+ (Neg); Glucose Qualitative, Urine 4+ (Neg); Ketones, Urine 4+ (Neg); Leukocyte Esterase, Urine Neg (Neg); Nitrite, Urine Neg (Neg); Protein, Urine 2+ (Neg); Urobilinogen, Urine NORM (Normal)
[2021-04-26 20:15] LABS: Color, Urine Yellow (P-Yellow)
[2021-04-26 20:16] LABS: Bacteria Not Seen /hpf; Squamous Epithelial Cells Not Seen /hpf (Few); White Blood Cells, Urine Rare /hpf (0-5)
[2021-04-26 21:35] LABS: SARS-Cov-2 (COVID-19) PCR, MMC NEGATIVE (NEGATIVE)
[2021-04-26 22:46] LABS: Anion Gap 23 mmol/L (6-16); Blood Urea Nitrogen 23 mg/dL (8-24); Bun/Creatinine Ratio 31.7 (12.0-20.0); CO2, Blood 6 mmol/L (21-32); Calcium, Blood 8.7 mg/dL (8.5-10.1); Chloride, Blood 100 mmol/L (98-108); Creatinine, Blood 0.73 mg/dL (0.60-1.20); Glomerular Filtration Rate >60 (60-); Glucose, Blood 456 mg/dL (70-99); Potassium, Blood 5.4 mmol/L (3.5-5.5); Sodium, Blood 129 mmol/L (136-145)
--- NOTE | 2021-04-26 23:30 | NUR ---
PT IS BETTER, BLOOD SUGAR IS COMING DOWN, LABS ARE STILL ABNORMAL. HE IS TRYING TO REST AT THIS TIME.
[2021-04-27 04:18] LABS: BASOPHILS ABSOLUTE AUTO 0.09 K/mm3 (0.00-0.23); BASOPHILS PERCENT AUTO 1 % (0-2); EOSINOPHILS ABSOLUTE AUTO 0.03 K/mm3 (0.00-0.68); EOSINOPHILS PERCENT AUTO 0 % (0-6); Hematocrit 42.5 % (37.0-53.0); Hemoglobin 15.3 g/dL (13.5-17.5); IMMATURE GRAN PERCENT AUTO 4 % (0-1); LYMPHOCYTES PERCENT AUTO 13 % (21-46); MONOCYTES ABSOLUTE AUTO 1.26 K/mm3 (0.16-1.47); MONOCYTES PERCENT AUTO 7 % (4-13); Mean Corpuscular HGB 34.1 pg (26.0-34.0); Mean Platelet Volume 8.6 fL (9.1-12.4); NEUTROPHILS ABSOLUTE AUTO 12.85 K/mm3 (1.96-9.15); NEUTROPHILS PERCENT AUTO 75 % (41-73); Platelet Count 490 K/mm3 (150-400); RDW Coefficient Variation 12.4 % (11.7-14.2); RDW Standard Deviation 42.8 fL (35.1-46.3); Red Blood Cell Count 4.49 M/mm3 (4.30-5.90); White Blood Cell Count 17.13 K/mm3 (4.00-11.30)
[2021-04-27 04:21] LABS: Mean Corpuscular Volume 95 fL (80-100)
[2021-04-27 04:40] LABS: Alanine Aminotransfer (ALT/SGP 32 U/L (12-78); Albumin, Blood 3.8 g/dL (3.4-5.0); Alk Phos 100 U/L (50-136); Anion Gap 18 mmol/L (6-16); Aspartate Aminotrans (AST/SGOT 13 U/L (12-37); Bilirubin, Total 0.5 mg/dL (0.1-1.0); Blood Urea Nitrogen 15 mg/dL (8-24); CO2, Blood 10 mmol/L (21-32); Calcium, Blood 7.8 mg/dL (8.5-10.1); Chloride, Blood 103 mmol/L (98-108); Creatinine, Blood 0.58 mg/dL (0.60-1.20); Globulin, Blood 3.7 g/dL (2.2-4.0); Glomerular Filtration Rate >60 (60-); Glucose, Blood 200 mg/dL (70-99); Potassium, Blood 4.2 mmol/L (3.5-5.5); Sodium, Blood 131 mmol/L (136-145)
[2021-04-27 04:52] LABS: Total Protein, Blood 7.5 g/dL (6.4-8.2)
--- NOTE | 2021-04-27 05:53 | NUR ---
LOCO HAS DONE WELL, SLEEPING ON AND OFF T/O THE NIGHT. HIS SUGARS DID DROP BELOW 200 AND THE D5 1/2NS WAS STARTED. HIS INSULIN GTT IS AT 2, MAY GO BACK TO 3 WITH HIS LAST 2 SUGARS CLIMBING. GAP NOT CLOSED, PT WANTING TO HAVE WATER BUT ONLY GIVEN ICE CHIPS PER ORDERS. HE IS COOPERATIVE AND HELPFUL. VOIDS PER URINAL WITHOUT INCIDENT. DENIES ANY COMPLAINTS, OTHER THAN HIS "KIDNEYS ARE BOTHERING HIM".
[2021-04-27 10:41] LABS: Anion Gap 13 mmol/L (6-16); Blood Urea Nitrogen 13 mg/dL (8-24); Bun/Creatinine Ratio 23.8 (12.0-20.0); CO2, Blood 16 mmol/L (21-32); Calcium, Blood 8.4 mg/dL (8.5-10.1); Chloride, Blood 104 mmol/L (98-108); Creatinine, Blood 0.55 mg/dL (0.60-1.20); Glomerular Filtration Rate >60 (60-); Glucose, Blood 190 mg/dL (70-99); Potassium, Blood 3.7 mmol/L (3.5-5.5); Sodium, Blood 133 mmol/L (136-145)
[2021-04-27 16:41] LABS: Anion Gap 10 mmol/L (6-16); Blood Urea Nitrogen 12 mg/dL (8-24); Bun/Creatinine Ratio 21.4 (12.0-20.0); CO2, Blood 18 mmol/L (21-32); Calcium, Blood 8.6 mg/dL (8.5-10.1); Chloride, Blood 106 mmol/L (98-108); Creatinine, Blood 0.56 mg/dL (0.60-1.20); Glomerular Filtration Rate >60 (60-); Glucose, Blood 159 mg/dL (70-99); Potassium, Blood 3.6 mmol/L (3.5-5.5); Sodium, Blood 134 mmol/L (136-145)
--- NOTE | 2021-04-27 17:28 | NUR ---
LEAVING AMA PT UPDATED TO CURRENT LABS AND PLAN TO STAY ON INSULIN GTT UNTIL 2200 LABS TO REEVALUATE. PT STATES HE DOES NOT WANT TO STAY ANY LONGER AND FEELS GOOD TO GO HOME. DR MCGILL NOTIFIED OF LABS AND PT DESIRE TO LEAVE AMA. NO NEW ORDERS RECIEVED. BOTH IV'S DISCONTINUED. PT VERBALIZED UNDERSTANDING OF RISKS LEAVING AMA AND SIGNED AMA FORM. PT DRESSED SELF AND WALKED OUT OF THE UNIT AT 1730.
== END 2021-04-27 17:20 | disposition left against medical advice (07) | DRG 638 ==
LOC: ER 17:51 → ICUW 20:18
PROVIDERS: Physician Assistant; Student in an Organized Health Care Education/Training Program; ADMIT Internal Medicine
DX: E10.10 Type 1 diabetes mellitus with ketoacidosis without coma (principal); E87.1 Hypo-osmolality and hyponatremia; E86.0 Dehydration; E83.39 Other disorders of phosphorus metabolism; K21.9 Gastro-esophageal reflux disease without esophagitis; B37.42 Candidal balanitis; Z87.891 Personal history of nicotine dependence; Z91.14 Patient's other noncompliance with medication regimen
CPT/HCPCS: 36415; 71045; 80048; 80053; 81001; 82010; 82803; 82947; 85025; 93005; 93010; 96365; 96374; 96375; 99285-25; A9270; G0378; J1650; J1815; J2405; J3480; J7030; J7042; U0004

== ENCOUNTER 2021-04-27 23:03 | Inpatient (IN) | payer OTHER ==
[~2021-04-27] VITALS: Ht 172.7 cm; Wt 66.9 kg
[2021-04-27 23:28] LABS: BASOPHILS ABSOLUTE AUTO 0.06 K/mm3 (0.00-0.23); BASOPHILS PERCENT AUTO 1 % (0-2); EOSINOPHILS ABSOLUTE AUTO 0.03 K/mm3 (0.00-0.68); EOSINOPHILS PERCENT AUTO 0 % (0-6); Hematocrit 43.2 % (37.0-53.0); Hemoglobin 15.5 g/dL (13.5-17.5); IMMATURE GRAN ABSOLUTE AUTO 0.13 K/mm3 (0.00-0.10); IMMATURE GRAN PERCENT AUTO 1 % (0-1); LYMPHOCYTES ABSOLUTE AUTO 1.97 K/mm3 (0.84-5.20); LYMPHOCYTES PERCENT AUTO 21 % (21-46); MONOCYTES ABSOLUTE AUTO 0.78 K/mm3 (0.16-1.47); MONOCYTES PERCENT AUTO 8 % (4-13); Mean Corpuscular HGB 34.1 pg (26.0-34.0); Mean Corpuscular HGB Conc 35.9 g/dL (31.5-36.5); Mean Corpuscular Volume 95 fL (80-100); Mean Platelet Volume 8.4 fL (9.1-12.4); NEUTROPHILS ABSOLUTE AUTO 6.38 K/mm3 (1.96-9.15); NEUTROPHILS PERCENT AUTO 68 % (41-73); Platelet Count 463 K/mm3 (150-400); RDW Coefficient Variation 12.6 % (11.7-14.2); RDW Standard Deviation 43.7 fL (35.1-46.3); Red Blood Cell Count 4.55 M/mm3 (4.30-5.90); White Blood Cell Count 9.35 K/mm3 (4.00-11.30)
[2021-04-27 23:47] LABS: Alanine Aminotransfer (ALT/SGP 28 U/L (12-78); Albumin, Blood 3.7 g/dL (3.4-5.0); Albumin/Globulin Ratio 1.1 (0.8-1.8); Alk Phos 95 U/L (50-136); Anion Gap 20 mmol/L (6-16); Aspartate Aminotrans (AST/SGOT 19 U/L (12-37); Bilirubin, Total 0.8 mg/dL (0.1-1.0); Blood Urea Nitrogen 14 mg/dL (8-24); Bun/Creatinine Ratio 20.5 (12.0-20.0); CO2, Blood 11 mmol/L (21-32); Calcium, Blood 8.7 mg/dL (8.5-10.1); Chloride, Blood 100 mmol/L (98-108); Creatinine, Blood 0.68 mg/dL (0.60-1.20); Globulin, Blood 3.4 g/dL (2.2-4.0); Glomerular Filtration Rate >60 (60-); Glucose, Blood 390 mg/dL (70-99); Potassium, Blood 3.9 mmol/L (3.5-5.5); Sodium, Blood 131 mmol/L (136-145); Total Protein, Blood 7.1 g/dL (6.4-8.2)
[2021-04-28 00:11] LABS: Bicarbonate Venous 12.1 mmol/L (24.0-30.0); PCO2 Venous 24.8 mmHg (38-42); PO2 Venous 78.2 mmHg (38-42); pH Blood Venous 7.18 (7.34-7.37)
--- NOTE | 2021-04-28 03:30 | NUR ---
PATIENT REPORT RECEIVED FROM ER, PATIENT AAOX4 SR NOTED IN THE MONITOR ROOM AIR SKIN INTACT WILL TO CONTINUE TO MONITOR
[2021-04-28 04:47] LABS: Anion Gap 19 mmol/L (6-16); Blood Urea Nitrogen 11 mg/dL (8-24); Bun/Creatinine Ratio 20.2 (12.0-20.0); CO2, Blood 10 mmol/L (21-32); Calcium, Blood 8.1 mg/dL (8.5-10.1); Chloride, Blood 103 mmol/L (98-108); Creatinine, Blood 0.55 mg/dL (0.60-1.20); Glomerular Filtration Rate >60 (60-); Glucose, Blood 275 mg/dL (70-99); Sodium, Blood 132 mmol/L (136-145)
[2021-04-28 08:36] LABS: Anion Gap 12 mmol/L (6-16); Blood Urea Nitrogen 8 mg/dL (8-24); Bun/Creatinine Ratio 14.3 (12.0-20.0); CO2, Blood 15 mmol/L (21-32); Calcium, Blood 7.9 mg/dL (8.5-10.1); Chloride, Blood 108 mmol/L (98-108); Creatinine, Blood 0.56 mg/dL (0.60-1.20); Glomerular Filtration Rate >60 (60-); Glucose, Blood 150 mg/dL (70-99); Potassium, Blood 3.7 mmol/L (3.5-5.5); Sodium, Blood 135 mmol/L (136-145)
--- NOTE | 2021-04-28 10:45 | NUR ---
IV ACCESS TRIED X2 UNSUCCESSFUL
[2021-04-28 12:28] LABS: Anion Gap 13 mmol/L (6-16); Blood Urea Nitrogen 8 mg/dL (8-24); Bun/Creatinine Ratio 16.1 (12.0-20.0); CO2, Blood 17 mmol/L (21-32); Calcium, Blood 7.6 mg/dL (8.5-10.1); Chloride, Blood 107 mmol/L (98-108); Glomerular Filtration Rate >60 (60-); Glucose, Blood 155 mg/dL (70-99); Potassium, Blood 4.1 mmol/L (3.5-5.5); Sodium, Blood 137 mmol/L (136-145)
--- NOTE | 2021-04-28 13:03 | NUR ---
DR VALLES CALLED LEFT MESSAGE CMP RESULTS IN
--- NOTE | 2021-04-28 13:22 | NUR ---
DR PORTER RETURNED CALL, REPORTED NEW CO2 AND THE POSSIBILITY ANOTHER CHEMISTRY LAB ORDER, DR REPORTED SHE WOULD REVEIW THE RESULTS
--- NOTE | 2021-04-28 15:08 | NUR ---
PATIENT CONTINUES TO THREATEN LEAVING THE HOSPITAL AMA, PATIENT ENCOURAGED TO STAY FOR TREATMENT BY BRIAN SANDERS AND JOSAFAT RN, PATIENT CONITNUES TO WANT TO LEAVE BECAUSE HE IS SO BORED AND IS GOING TO MISS WORK
--- NOTE | 2021-04-28 16:18 | NUR ---
PATIENT OOB IN CHAIR, ATE DINNER, WAITING FOR 1600 LAB RESULTS
[2021-04-28 16:41] LABS: Magnesium, Blood 1.8 mg/dL (1.6-2.4)
[2021-04-28 16:45] LABS: Anion Gap 11 mmol/L (6-16); Blood Urea Nitrogen 7 mg/dL (8-24); Bun/Creatinine Ratio 14.1 (12.0-20.0); CO2, Blood 17 mmol/L (21-32); Calcium, Blood 7.8 mg/dL (8.5-10.1); Chloride, Blood 108 mmol/L (98-108); Glomerular Filtration Rate >60 (60-); Glucose, Blood 262 mg/dL (70-99); Phosphorus, Blood 1.3 mg/dL (2.5-4.9); Sodium, Blood 136 mmol/L (136-145)
--- NOTE | 2021-04-28 17:00 | NUR ---
DR. PORTER UPATED ON PATIENT STATUS. INFORMED THAT INSULIN DRIP AT 5 UNITS/ HOUR. INFORMED THAT CO2 17, ANION 11, AND PHOS 1.3. STATED SHE WOULD ORDER PHOS REPLACEMENT. ORDER OBTAINED TO CHANGE D5NS TO D51/2NS. MORE LABS ORDERED FOR 1999.
--- NOTE | 2021-04-28 17:58 | NUR ---
PATIENT ALERT AND ORIENTED MAKES NEEDS KNOWN, CALL LIGHT WITH IN REACH, PATIENT THREATENING TO LEAVE AMA BECAUSE HIS LABS ARE NOT IMPROVING, "AFTER MY LABS AT 9 PM I AM FUCKING LEAVING AND RIPING OUT MY IVS" PATIENT ENCOURAGED TO STAY FOR TREATMENT BY RNS AND DR VALLES, BS HOURLY, INSULIN GTT AT 5, D51/2NS, CLEAR LS, BT ACTIVE, TOLERATING ADA DIET, DENIES N/V, WILL RELAY TO PM RN
--- NOTE | 2021-04-28 19:20 | NUR ---
PATIENT REPORT RECEIVED FROM [facility] PATIENT AAOX4 SR NOTED IN THE MONITOR ROOM AIR SKIN INTACT WILL TO CONTINUE TO MONITOR
[2021-04-28 20:27] LABS: Anion Gap 8 mmol/L (6-16); Blood Urea Nitrogen 8 mg/dL (8-24); Bun/Creatinine Ratio 15.7 (12.0-20.0); CO2, Blood 23 mmol/L (21-32); Calcium, Blood 8.3 mg/dL (8.5-10.1); Chloride, Blood 108 mmol/L (98-108); Creatinine, Blood 0.51 mg/dL (0.60-1.20); Glomerular Filtration Rate >60 (60-); Glucose, Blood 226 mg/dL (70-99); Magnesium, Blood 1.6 mg/dL (1.6-2.4); Potassium, Blood 3.4 mmol/L (3.5-5.5); Sodium, Blood 139 mmol/L (136-145)
--- NOTE | 2021-04-28 22:00 | NUR ---
PATIENT REFUSED THE TREATMENT. MD GRIFFIN MADE AWARE CHARGE NURSE MADE AWARE AISHWARYA MARINELLI IV LINE REMOVED LONG ACTING INSULINE ADMINISTERED 40 POTASIUM 20
== END 2021-04-28 22:15 | disposition left against medical advice (07) | DRG 639 ==
LOC: ER 23:03 → ICUW 04-28 00:14 → ICUE 04-28 02:26
PROVIDERS: Internal Medicine; Physician Assistant; ADMIT Internal Medicine
DX: E10.10 Type 1 diabetes mellitus with ketoacidosis without coma (principal); Z66 Do not resuscitate; E83.39 Other disorders of phosphorus metabolism; N48.29 Other inflammatory disorders of penis; K21.9 Gastro-esophageal reflux disease without esophagitis; Z87.891 Personal history of nicotine dependence; Z91.14 Patient's other noncompliance with medication regimen
CPT/HCPCS: 36415; 80048; 80053; 82803; 82947; 83735; 84100; 85025; 94762; 96365; 96366; 96375; 99285; A9270; C9113; J1650; J1815; J2405; J3480; J7030; J7042; J7050; J7060

== ENCOUNTER 2022-08-11 02:29 | Observation (INO) | payer OTHER ==
[~2022-08-11] VITALS: Ht 175.3 cm; Wt 69.7 kg
[2022-08-11 03:28] LABS: BASOPHILS ABSOLUTE AUTO 0.04 K/mm3 (0.00-0.23); BASOPHILS PERCENT AUTO 0 % (0-2); EOSINOPHILS ABSOLUTE AUTO 0.08 K/mm3 (0.00-0.68); EOSINOPHILS PERCENT AUTO 1 % (0-6); Hemoglobin 19.8 g/dL (13.5-17.5); IMMATURE GRAN ABSOLUTE AUTO 0.09 K/mm3 (0.00-0.10); IMMATURE GRAN PERCENT AUTO 1 % (0-1); LYMPHOCYTES ABSOLUTE AUTO 1.92 K/mm3 (0.84-5.20); LYMPHOCYTES PERCENT AUTO 13 % (21-46); MONOCYTES ABSOLUTE AUTO 0.56 K/mm3 (0.16-1.47); MONOCYTES PERCENT AUTO 4 % (4-13); Mean Corpuscular HGB 34.1 pg (26.0-34.0); Mean Corpuscular HGB Conc 36.7 g/dL (31.5-36.5); Mean Corpuscular Volume 93 fL (80-100); NEUTROPHILS ABSOLUTE AUTO 12.26 K/mm3 (1.96-9.15); NEUTROPHILS PERCENT AUTO 82 % (41-73); Platelet Count 436 K/mm3 (150-400); RDW Coefficient Variation 11.3 % (11.7-14.2); RDW Standard Deviation 38.2 fL (35.1-46.3); White Blood Cell Count 14.95 K/mm3 (4.00-11.30)
[2022-08-11 03:43] LABS: Base Excess Venous -17.5 mmol/L; Bicarbonate Venous 13.7 mmol/L (24.0-30.0); PCO2 Venous 23.7 mmHg (38-42); pH Blood Venous 7.23 (7.34-7.37)
[2022-08-11 04:22] LABS: Albumin, Blood 5.3 g/dL (3.4-5.0); Albumin/Globulin Ratio 1.3 (0.8-1.8); Beta-hydroxybutyrate 99.9 mg/dL (0.2-2.8); Bun/Creatinine Ratio 25.5 (12.0-20.0); Calcium, Blood 9.8 mg/dL (8.5-10.1); Creatinine, Blood 0.71 mg/dL (0.60-1.20); Globulin, Blood 4.1 g/dL (2.2-4.0); Potassium, Blood 3.9 mmol/L (3.5-5.5); Total Protein, Blood 9.4 g/dL (6.4-8.2)
[2022-08-11] MEDS ORDERED: MULVITA PO (06:39)
--- NOTE | 2022-08-11 07:17 | NUR ---
PT ARRIVES TO ROOM ICU 5 FROM ED. ADMIT ICU STATUS. PT ABLE TO TRANSFER HIMSELF INTO BED. HAS EMESIS BAG AND HAS BEEN SPITTING SALIVA AND SMALL AMOUNT OF SPUTUM. COMPLAINS OF BURNING IN HIS THROAT FROM VOMITING. REQUESTS WATER AND ICE CHIPS. EXPLAINED TO PT THAT HE IS NOTHING BY MOUTH, AND THAT NEXT HOSPITALIST TEAM WOULD BE IN THIS MORNING. PT ON INSULIN DRIP AT 5 UNITS PER HOUR. REPORT GIVEN TO ONCOMING RN.
--- NOTE | 2022-08-11 07:34 | NUR ---
ASSUMED CARE: PT RESTING IN BED, INSULIN GTT AT 5 UNITS/HR. NS RUNNING WIDE OPEN. LAB AT BEDSIDE FOR DRAW. PT STATES HIS THROAT FEELS DRY AND ASKING FOR ICE. NSR ON TELE IN 80S, RA. CBG 178, INSULIN TITRATED. CALL TO DR SUTTON FOR FURTHER ORDERS. DR SUTTON ARRIVED, PROVIDED CHANGE IN FLUID ORDERS AND STATED HE WOULD LET DR OTT KNOW OF CHANGES DUE TO PT BEING HIS TODAY. NO FURTHER NEEDS AT THIS TIME.
[2022-08-11 07:53] LABS: Bun/Creatinine Ratio 31.6 (12.0-20.0); Calcium, Blood 8.3 mg/dL (8.5-10.1); Creatinine, Blood 0.47 mg/dL (0.60-1.20); Potassium, Blood 3.8 mmol/L (3.5-5.5)
[2022-08-11 07:53] LABS: BASOPHILS ABSOLUTE AUTO 0.05 K/mm3 (0.00-0.23); BASOPHILS PERCENT AUTO 0 % (0-2); EOSINOPHILS ABSOLUTE AUTO 0.01 K/mm3 (0.00-0.68); EOSINOPHILS PERCENT AUTO 0 % (0-6); Hematocrit 48.8 % (37.0-53.0); IMMATURE GRAN ABSOLUTE AUTO 0.13 K/mm3 (0.00-0.10); IMMATURE GRAN PERCENT AUTO 1 % (0-1); LYMPHOCYTES ABSOLUTE AUTO 1.13 K/mm3 (0.84-5.20); LYMPHOCYTES PERCENT AUTO 6 % (21-46); MONOCYTES ABSOLUTE AUTO 0.66 K/mm3 (0.16-1.47); MONOCYTES PERCENT AUTO 3 % (4-13); Mean Corpuscular HGB 34.2 pg (26.0-34.0); Mean Corpuscular HGB Conc 36.9 g/dL (31.5-36.5); Mean Corpuscular Volume 93 fL (80-100); Mean Platelet Volume 8.8 fL (9.1-12.4); NEUTROPHILS ABSOLUTE AUTO 18.68 K/mm3 (1.96-9.15); NEUTROPHILS PERCENT AUTO 91 % (41-73); Platelet Count 342 K/mm3 (150-400); RDW Coefficient Variation 11.3 % (11.7-14.2); RDW Standard Deviation 38.3 fL (35.1-46.3); Red Blood Cell Count 5.26 M/mm3 (4.30-5.90); White Blood Cell Count 20.66 K/mm3 (4.00-11.30)
[2022-08-11 07:58] LABS: Magnesium, Blood 1.7 mg/dL (1.6-2.4)
[2022-08-11 08:16] LABS: Albumin, Blood 4.1 g/dL (3.4-5.0); Bilirubin, Total 0.6 mg/dL (0.1-1.0); Bun/Creatinine Ratio 33.1 (12.0-20.0); Calcium, Blood 8.5 mg/dL (8.5-10.1); Creatinine, Blood 0.48 mg/dL (0.60-1.20); Phosphorus, Blood 1.8 mg/dL (2.5-4.9); Potassium, Blood 3.9 mmol/L (3.5-5.5)
[2022-08-11 08:25] LABS: Albumin/Globulin Ratio 1.2 (0.8-1.8); Globulin, Blood 3.3 g/dL (2.2-4.0); Total Protein, Blood 7.4 g/dL (6.4-8.2)
[2022-08-11 08:27] LABS: Source, Urine Clean Catch
[2022-08-11 08:36] LABS: Appearance, Urine Clear (Clear); Bilirubin, Urine Neg (Neg); Blood, Urine 1+ (Neg); Color, Urine Yellow (P-Yellow); Glucose Qualitative, Urine 4+ (Neg); Ketones, Urine 4+ (Neg); Leukocyte Esterase, Urine Neg (Neg); Nitrite, Urine Neg (Neg); Protein, Urine 3+ (Neg); Urobilinogen, Urine NORM (Normal)
[2022-08-11 08:47] LABS: Squamous Epithelial Cells Rare /hpf (Few); White Blood Cells, Urine 0-2 /hpf (0-5)
[2022-08-11 08:48] LABS: Bacteria Few /hpf
--- NOTE | 2022-08-11 10:09 | NUR ---
DR OTT CAME TO SEE PT AND ORDERED LANTUS WHILE PT IS STILL ON INSULIN GTT. STATED CLEAR LIQUID OK WELL. DISCUSSED WITH WELT SOLE LAYER WHO STATED TO SEE HOW PT TOLERATES CLEAR LIQUID BEFORE PROVIDING LANTUS. PT RESTING QUIETLY AT THIS TIME. WILL EVALUATE WHEN AWAKE
[2022-08-11 13:57] LABS: Bun/Creatinine Ratio 24.9 (12.0-20.0); Calcium, Blood 8.2 mg/dL (8.5-10.1); Creatinine, Blood 0.4 mg/dL (0.60-1.20); Potassium, Blood 3.5 mmol/L (3.5-5.5)
--- NOTE | 2022-08-11 16:15 | NUR ---
PT CALLED STAFF TO ROOM AND ASKED HOW HIS LABS ARE. RELAYED TO HIM THAT HIS CO2 IS STILL LOW BUT GAP IS CLOSED. PT STATES HE IS UNCOMFORTABLE AND ABOUT TO SIGN HIMSELF OUT. OFFERED TO DISCONNECT FROM MONITORS FOR A FEW MINUTES SO HE CAN TAKE A WALK. PT ALSO HAS RECLINER AT BEDSIDE. PT DECLINED THESE INTERVENTIONS AND STATED HE WILL JUST LAY IN BED AND BE MISERABLE BUT MAY SIGN OUT. AMA FORM PREPARED AND DAYTIME BABYSITTER AWARE.
--- NOTE | 2022-08-11 16:26 | NUR ---
CALL TO DR OTT TO MAKE HIM AWARE THAT PT IS DISCUSSING AMA. STATES IF PT SIGNS OUT AFTER [facility] HOURS THAT A NOTE IS ONLY NECESSARY AND NO FURTHER CALL NEEDED SINCE THEY ARE AWARE THAT PT HAS DONE THIS BEFORE.
[2022-08-11 17:24] LABS: Bun/Creatinine Ratio 19.7 (12.0-20.0); Calcium, Blood 8.5 mg/dL (8.5-10.1); Creatinine, Blood 0.41 mg/dL (0.60-1.20)
--- NOTE | 2022-08-11 18:09 | NUR ---
SHIFT SUMMARY: PT CONTINUES TO C/O HEART BURN AND BEING HUNGERY. ATTEMPTED FULL LIQUIDS WITH CHICKEN NOODLE SOUP AND YOGURT BUT PT DIDN'T LIKE HOW THEY TASTED. MEDICATED FOR HEARTBURN AND INFORMED PT HE WOULD HAVE TO WAIT A LITTLE WHILE BEFORE EATING SO THAT MEDICATION COULD REACH AFFECT. FAMILY AT BEDSIDE. INSULIN GTT AT 4UNITS/HR WITH D51/2 GTT RUNNING.
[2022-08-11 20:32] LABS: Bun/Creatinine Ratio 18.3 (12.0-20.0); Calcium, Blood 8.5 mg/dL (8.5-10.1); Creatinine, Blood 0.38 mg/dL (0.60-1.20)
[2022-08-12 00:56] LABS: Bun/Creatinine Ratio 14.2 (12.0-20.0); Calcium, Blood 8.2 mg/dL (8.5-10.1); Creatinine, Blood 0.35 mg/dL (0.60-1.20); Potassium, Blood 2.9 mmol/L (3.5-5.5)
[2022-08-12 06:47] LABS: Albumin, Blood 3.1 g/dL (3.4-5.0); Albumin/Globulin Ratio 1.1 (0.8-1.8); Bilirubin, Total 0.9 mg/dL (0.1-1.0); Bun/Creatinine Ratio 13.2 (12.0-20.0); Calcium, Blood 8.5 mg/dL (8.5-10.1); Creatinine, Blood 0.3 mg/dL (0.60-1.20); Globulin, Blood 2.7 g/dL (2.2-4.0); Potassium, Blood 3.7 mmol/L (3.5-5.5); Total Protein, Blood 5.8 g/dL (6.4-8.2)
--- NOTE | 2022-08-12 06:51 | NUR ---
SHIFT SUMMARY OVERNIGHT, PATIENT ALERT AND ORIENTED X4. C/O WORSENING HEARTBURN OVERNIGHT, DESCRIBED A "GIANT BUBBLE" PUSHING IN HIS STOMACH AND CHEST. GIVEN GI COCKTAIL AND TUMS WITHOUT RELIEF. NIGHT PROGRESSED, PATIENT TEARFUL AND FRUSTRATED R/T HEARTBURN. SPOKE WITH HOSPITALIST AGAIN, AND RECEIVED ORDERS FOR DILAUDID WHICH PATIENT STATES HELP IMMENSELY WITH DISCOMFORT. OTHERWISE, MONITOR SHOWING SR BEFORE BEING DISCONTINUED. HR 70S PER PULSE OX. NORMOTENSIVE. RA. DIFFICULTY ADVANCING DIET OVERNIGHT R/T GI DISCOMFORT AND FOOD INTOLERANCE. THIS MORNING, PATIENT TOLERATING FULL LIQUID WELL. TRANSITIONED OFF INSULIN GTT BY 0100. EXCELLENT URINE OUTPUT. POTASSIUM LOW 2.9 OVERNIGHT; REPLACED X2. K UP TO 3.7 ON REPEAT LABS THIS MORNING. CONTINUES ON 1/2NS @ 100CC/HR.
[2022-08-12 07:17] LABS: BASOPHILS ABSOLUTE AUTO 0.03 K/mm3 (0.00-0.23); BASOPHILS PERCENT AUTO 0 % (0-2); EOSINOPHILS ABSOLUTE AUTO 0.03 K/mm3 (0.00-0.68); EOSINOPHILS PERCENT AUTO 0 % (0-6); Hematocrit 37.9 % (37.0-53.0); IMMATURE GRAN ABSOLUTE AUTO 0.05 K/mm3 (0.00-0.10); IMMATURE GRAN PERCENT AUTO 0 % (0-1); LYMPHOCYTES ABSOLUTE AUTO 1.69 K/mm3 (0.84-5.20); LYMPHOCYTES PERCENT AUTO 13 % (21-46); MONOCYTES ABSOLUTE AUTO 1.11 K/mm3 (0.16-1.47); MONOCYTES PERCENT AUTO 9 % (4-13); Mean Corpuscular Volume 90 fL (80-100); Mean Platelet Volume 9.6 fL (9.1-12.4); NEUTROPHILS ABSOLUTE AUTO 10.02 K/mm3 (1.96-9.15); NEUTROPHILS PERCENT AUTO 78 % (41-73); Platelet Count 291 K/mm3 (150-400); RDW Coefficient Variation 11.1 % (11.7-14.2); RDW Standard Deviation 36.7 fL (35.1-46.3); White Blood Cell Count 12.93 K/mm3 (4.00-11.30)
--- NOTE | 2022-08-12 08:00 | NUR ---
PT A&OX4. PT STATES THAT HE IS "READY TO GO HOME!" PT REPORTS 8/10 EPIGASTRIC PAIN. VSS. PT MED STATUS. PT DENIES NAUSEA, BUT STATES THAT IT IS DIFFICULT TO EAT BECAUSE OF THE PAIN. PT REQUESTED APPLE JUICE-REQUEST GRANTED. PT ABLE TO DRINK 100% OF THE APPLEJUICE WITHOUT DIFFICULTY. CBG 255 THIS AM. HUMALOG COVERAGE GIVEN FOR HIGH SUGAR ONLY-PT ONLY CONSUMED THE APPLE JUICE FOR BREAKFAST. 1/2 NS INFUSING @ 100 CC/HR. PT ABLE TO GET OOB WITHOUT DIFFICULTY. PT VOIDS VIA URINAL PRN AND IS ABLE TO COMMUNICATE HIS NEEDS WELL. CALL LIGHT WITHIN REACH.
--- NOTE | 2022-08-12 08:37 | NUR ---
DR. HARRIS PHONED AND GIVEN UPDATE. AWARE OF PT ONGOING EPIGASTRIC PAIN AND ORDERS GIVEN FOR DILAUDID 0.5 MG IVP X 1. PLAN TO DISCHARGE PT LATER THIS AM.
[2022-08-12] MEDS ORDERED: OMEP20ER PO (10:45)
--- NOTE | 2022-08-12 11:00 | NUR ---
PT DISCHARGED TO HOME-OUT AMBULATORY WITH BELONGINGS AND DISCHARGE INSTRUCTIONS ON HAND.
== END 2022-08-12 11:06 | disposition home or self-care (01) ==
LOC: ER 02:29 → ICUE 02:31 → ICUW 02:31 → ER 06:11 → ICUW 06:11 → ICUE 06:28
PROVIDERS: Hospitalist; Student in an Organized Health Care Education/Training Program; ADMIT Internal Medicine
DX: E10.10 Type 1 diabetes mellitus with ketoacidosis without coma (principal); F17.290 Nicotine dependence, other tobacco product, uncomplicated; E87.1 Hypo-osmolality and hyponatremia; R94.31 Abnormal electrocardiogram [ECG] [EKG]; K92.0 Hematemesis; K21.9 Gastro-esophageal reflux disease without esophagitis; F12.10 Cannabis abuse, uncomplicated; Z79.4 Long term (current) use of insulin
CPT/HCPCS: 36415; 80048; 80053; 81001; 82010; 82803; 82947; 83735; 84100; 85025; 93005; 93010; 96361; 96374; 96375; 96376; 99285-25; A9270; C9113; G0378; J1170; J1815; J2405; J2765; J3480; J7030; J7042; J7050; J7060

== ENCOUNTER → 2023-01-15 | Outpatient (CLI) | payer OTHER ==
[~2023-01-15] MED LIST changes: +MULVITA PO
[2023-01-18 00:08] LABS: CHLAMYDIA TRACHOMATIS, NAA Negative (Negative)
== END ==
LOC: LAB 18:28 → LAB SHORT 18:28
PROVIDERS: Family Medicine
DX: N39.0 Urinary tract infection, site not specified (principal); Z72.51 High risk heterosexual behavior
CPT/HCPCS: 87086; 87491; 87591

== ENCOUNTER 2023-02-12 09:02 | Inpatient (IN) | payer OTHER ==
[2023-02-12] VITALS (17 sets, daily range): BP systolic 110–150; BP diastolic 61–93
[~2023-02-12] VITALS: Ht 172.7 cm; Wt 62.5 kg
[2023-02-12 09:39] LABS: BASOPHILS ABSOLUTE AUTO 0.05 K/mm3 (0.00-0.23); BASOPHILS PERCENT AUTO 0 % (0-2); EOSINOPHILS ABSOLUTE AUTO 0.02 K/mm3 (0.00-0.68); EOSINOPHILS PERCENT AUTO 0 % (0-6); Hematocrit 48.4 % (37.0-53.0); Hemoglobin 17.3 g/dL (13.5-17.5); IMMATURE GRAN ABSOLUTE AUTO 0.16 K/mm3 (0.00-0.10); IMMATURE GRAN PERCENT AUTO 1 % (0-1); LYMPHOCYTES PERCENT AUTO 11 % (21-46); MONOCYTES ABSOLUTE AUTO 0.95 K/mm3 (0.16-1.47); MONOCYTES PERCENT AUTO 5 % (4-13); Mean Corpuscular HGB 32.8 pg (26.0-34.0); Mean Corpuscular HGB Conc 35.7 g/dL (31.5-36.5); Mean Corpuscular Volume 92 fL (80-100); Mean Platelet Volume 8.9 fL (9.1-12.4); NEUTROPHILS ABSOLUTE AUTO 14.71 K/mm3 (1.96-9.15); NEUTROPHILS PERCENT AUTO 82 % (41-73); Platelet Count 489 K/mm3 (150-400); RDW Standard Deviation 40.7 fL (35.1-46.3); Red Blood Cell Count 5.28 M/mm3 (4.30-5.90); White Blood Cell Count 17.89 K/mm3 (4.00-11.30)
[2023-02-12 10:09] LABS: Albumin/Globulin Ratio 1.4 (0.8-1.8); Bun/Creatinine Ratio 26.1 (12.0-20.0); Calcium, Blood 9.2 mg/dL (8.5-10.1); Creatinine, Blood 0.81 mg/dL (0.60-1.20); Globulin, Blood 3.6 g/dL (2.2-4.0); Potassium, Blood 4.1 mmol/L (3.5-5.5); Total Protein, Blood 8.6 g/dL (6.4-8.2)
[2023-02-12 10:25] LABS: Base Excess Venous -20.3 mmol/L; Bicarbonate Venous 11.3 mmol/L (24.0-30.0); PCO2 Venous 25.4 mmHg (38-42); pH Blood Venous 7.14 (7.34-7.37)
[2023-02-12 11:22] LABS: Source, Urine Clean Catch
[2023-02-12 11:37] LABS: Bilirubin, Urine Neg (Neg); Blood, Urine Neg (Neg); Glucose Qualitative, Urine 4+ (Neg); Ketones, Urine 4+ (Neg); Leukocyte Esterase, Urine Neg (Neg); Nitrite, Urine Neg (Neg); Protein, Urine 2+ (Neg); Urobilinogen, Urine NORM (Normal)
[2023-02-12 11:52] LABS: Appearance, Urine Clear (Clear); Color, Urine Yellow (P-Yellow)
[2023-02-12 11:53] LABS: Red Blood Cells, Urine 0-2 /hpf (0-2); Squamous Epithelial Cells Few /hpf (Few)
[2023-02-12 11:54] LABS: Bacteria Few /hpf
[2023-02-12 12:30] LABS: Bun/Creatinine Ratio 26.9 (12.0-20.0); Calcium, Blood 8.3 mg/dL (8.5-10.1); Creatinine, Blood 0.67 mg/dL (0.60-1.20); Potassium, Blood 4.4 mmol/L (3.5-5.5)
--- NOTE | 2023-02-12 12:45 | NUR ---
ICU ADMISSION: REPORT RECEIVED FROM PAOLO HILLMAN IN ED. PT ARRIVED TO ICU-01 AT APPROX 1230. ON ARRIVAL, HE IS ABLE TO SAFELY STAND & AMBULATE FROM GURNEY TO BED. SBA USED FOR MANAGEMENT OF CORDS/ LINES. HE IS A&O TO ALL AT THAT TIME & STS SOB FEELS "BETTER" THAN IT DID WHEN ARRIVING TO ED THIS AM. LS CLEAR T/O, PT ON RA W/ O2 SATS > 95%. MONITOR SHOWS ST W/ HR 100-140s, INCREASED WHEN AWAKE OR ANXIOUS. PT HAS NO CURRENT GI COMPLAINTS, DENIES NAUSEA OR CURRENT INDIGESTION SINCE GI COCKTAIL ADMIN IN ED. STS NO DIFFICULTY W/ VOIDING URINE. SKIN CONDITION OVERALL INTACT, PT REPOSITIONS SELF PRN FOR COMFORT. INSULIN DRIP INFUSING AT 5.9 UNITS/HR & D5NS INFUSING AT 250 ML/HR ON ARRIVAL, CBG CHECKED & TRENDING UP - SEE ICU FLOWSHEET FOR INSULIN DRIP TITRATIONS. WILL CONTINUE TO MONITOR & UPDATE NEEDED.
[2023-02-12 16:20] LABS: Bun/Creatinine Ratio 23.9 (12.0-20.0); Calcium, Blood 8.3 mg/dL (8.5-10.1); Creatinine, Blood 0.59 mg/dL (0.60-1.20); Potassium, Blood 3.9 mmol/L (3.5-5.5)
--- NOTE | 2023-02-12 16:30 | NUR ---
DR GALLAGHER: CALL TO PROVIDER REGARDING PT's INCREASED C/O ANXIETY & FEELING "UNCOMFORTABLE." HE STS THAT HE NEEDS FRESH AIR & WOULD LIKE TO GO HOME. DISCUSSED POC & RISK FOR READMISSION IF THE PT WAS TO LEAVE AMA AT THIS TIME. THIS RN STS THAT SHE WILL CALL THE PROVIDER & TRY TO OBTAIN ORDERS THAT WILL HELP HIM BE MORE COMFORTABLE WHILE HE CONTINUES RECEIVING TX. THIS RN REQUESTS HYDROXYZINE FOR THE PT's C/O ANXIETY & GI COCKTAIL FOR CONTINUED C/O INDIGESTION. PROVIDER STS THAT SHE WILL PLACE THESE ORDERS & THAT THE PT MAY HAVE FREE WATER & ICE CHIPS DESIRED. ORDERS PLACED. BMP RESULTS LATER RESULTED TO PROVIDER. SHE BELIEVES THAT THE INSULIN DRIP WILL BE ABLE TO BE DISCONTINUED AFTER THE NEXT BMP CHECK R/T IMPROVING LABS. NEXT CHECK SCHEDULED FOR 1999. DR GALLAGHER STS OKAY TO CONTACT HER AT THIS TIME W/ RESULTS SO THAT SHE MAY PLACE ORDERS DESIRED FOR THIS PT.
[2023-02-12 20:17] LABS: Calcium, Blood 7.7 mg/dL (8.5-10.1); Creatinine, Blood 0.5 mg/dL (0.60-1.20); Potassium, Blood 3.7 mmol/L (3.5-5.5)
[2023-02-13] VITALS (7 sets, daily range): BP systolic 111–138; BP diastolic 69–86
[2023-02-13 03:32] LABS: BASOPHILS ABSOLUTE AUTO 0.02 K/mm3 (0.00-0.23); BASOPHILS PERCENT AUTO 0 % (0-2); EOSINOPHILS ABSOLUTE AUTO 0.01 K/mm3 (0.00-0.68); EOSINOPHILS PERCENT AUTO 0 % (0-6); Hematocrit 36.1 % (37.0-53.0); Hemoglobin 13.1 g/dL (13.5-17.5); IMMATURE GRAN ABSOLUTE AUTO 0.06 K/mm3 (0.00-0.10); IMMATURE GRAN PERCENT AUTO 1 % (0-1); LYMPHOCYTES ABSOLUTE AUTO 2.15 K/mm3 (0.84-5.20); LYMPHOCYTES PERCENT AUTO 19 % (21-46); MONOCYTES ABSOLUTE AUTO 0.93 K/mm3 (0.16-1.47); MONOCYTES PERCENT AUTO 8 % (4-13); Mean Corpuscular HGB 32.6 pg (26.0-34.0); Mean Corpuscular HGB Conc 36.3 g/dL (31.5-36.5); Mean Corpuscular Volume 90 fL (80-100); Mean Platelet Volume 8.9 fL (9.1-12.4); NEUTROPHILS ABSOLUTE AUTO 8.32 K/mm3 (1.96-9.15); NEUTROPHILS PERCENT AUTO 72 % (41-73); Platelet Count 317 K/mm3 (150-400); RDW Standard Deviation 39.5 fL (35.1-46.3); Red Blood Cell Count 4.02 M/mm3 (4.30-5.90); White Blood Cell Count 11.49 K/mm3 (4.00-11.30)
[2023-02-13 05:05] LABS: Albumin, Blood 3.2 g/dL (3.4-5.0); Bun/Creatinine Ratio 18.6 (12.0-20.0); Creatinine, Blood 0.43 mg/dL (0.60-1.20); Potassium, Blood 3.9 mmol/L (3.5-5.5)
[2023-02-13 05:06] LABS: Albumin/Globulin Ratio 1.3 (0.8-1.8); Globulin, Blood 2.5 g/dL (2.2-4.0)
--- NOTE | 2023-02-13 05:39 | NUR ---
SHIFT SUMMARY: Assumed care of pt at 1900. Insulin drip at 2units/hr. Dr. Diaz at [facility] called with results of 1999 labs. Orders received to turn of insulin drip, administer long acting insulin, and titrate IV fluids with dextrose to maintain CBG of 120-200. CBG was greater than 200 on D5 drip, so IV fluids were titrated off. Blood sugars remained above 200 overnight. Pt complains of dyspepsia- full feeling in stomach, yet taking clear liquids with no nausea. This morning, he is anxious and irritable. He states that he wants to leave AMA because he does not feel that his medical treatments are being properly managed, he is upset because he can't have real food. Dr. Sales notified, he is on the way to bedside to discuss with patient.
[2023-02-13 06:09] LABS: Total Protein, Blood 5.7 g/dL (6.4-8.2)
--- NOTE | 2023-02-13 09:17 | NUR ---
ASSUMED CARE REPORT FROM [facility] AT 0700. PT RESTING IN BED. IRRITABLE. DR GALLAGHER AT BEDSIDE. DISCUSSED CARE PLAN. REPEAT CMP AT 0900, D/C PENDING LAB RESULTS. PT AGREEABLE TO THIS PLAN. SR ON MONITOR, BP STABLE. LUNGS CLEAR. SPEAKING IN FULL SENTENCES. INDEPENDENT IN ROOM. SALINE LOCKED. ADA DIET PROVIDED. PT ATE 50%. REPORT FULLNESS IN EPIGASTRIC AREA, OFFERRED GI COCKTAIL, REFUSED. STATES MILK HELPS c SYMPTOMS. LONG ACTING AND SS COVERAGE GIVEN. CALL LIGHT IN REACH. WILL CONTINUE TO MONITOR.
[2023-02-13 09:40] LABS: Bun/Creatinine Ratio 15.7 (12.0-20.0); Calcium, Blood 8.1 mg/dL (8.5-10.1); Creatinine, Blood 0.45 mg/dL (0.60-1.20); Potassium, Blood 3.5 mmol/L (3.5-5.5)
--- NOTE | 2023-02-13 10:35 | NUR ---
DISCHARGE D/C INSTRUCTIONS GIVEN. PT VERBALIZED UNDERSTANDING. AGREES TO F/U APPT TIME. IV REMOVED, PRESSURE DRESSING APPLIED. OTD NAD.
== END 2023-02-13 10:20 | disposition home or self-care (01) | DRG 638 ==
LOC: ER 09:02 → ICUE 11:34
PROVIDERS: Student in an Organized Health Care Education/Training Program; ADMIT Family Medicine
DX: E10.10 Type 1 diabetes mellitus with ketoacidosis without coma (principal); Z68.1 Body mass index [BMI] 19.9 or less, adult; K21.9 Gastro-esophageal reflux disease without esophagitis; F12.10 Cannabis abuse, uncomplicated; R63.6 Underweight; F17.210 Nicotine dependence, cigarettes, uncomplicated; Z79.4 Long term (current) use of insulin; Z79.899 Other long term (current) drug therapy
CPT/HCPCS: 36415; 80048; 80053; 81001; 82010; 82803; 82947; 83690; 85025; 93005; 93010; 96361; 96374; 99285-25; A9270; J1790; J1815; J3480; J7042; J7120; Q0177

== ENCOUNTER 2023-08-13 22:21 | Inpatient (IN) | payer OTHER ==
[~2023-08-13] VITALS: Ht 172.7 cm; Wt 56.9 kg
[2023-08-13] MEDS ORDERED: Ondansetron HCl 2 MG / ML 2ML Vial IV PRN (22:45)
[2023-08-13 22:51] LABS: BASOPHILS ABSOLUTE AUTO 0.02 K/mm3 (0.00-0.23); BASOPHILS PERCENT AUTO 0 % (0-2); EOSINOPHILS ABSOLUTE AUTO 0.01 K/mm3 (0.00-0.68); EOSINOPHILS PERCENT AUTO 0 % (0-6); Hematocrit 47.6 % (37.0-53.0); Hemoglobin 17.7 g/dL (13.5-17.5); IMMATURE GRAN ABSOLUTE AUTO 0.11 K/mm3 (0.00-0.10); IMMATURE GRAN PERCENT AUTO 1 % (0-1); LYMPHOCYTES ABSOLUTE AUTO 1.62 K/mm3 (0.84-5.20); LYMPHOCYTES PERCENT AUTO 8 % (21-46); MONOCYTES ABSOLUTE AUTO 1.26 K/mm3 (0.16-1.47); MONOCYTES PERCENT AUTO 6 % (4-13); Mean Corpuscular HGB 32.1 pg (26.0-34.0); Mean Corpuscular HGB Conc 37.2 g/dL (31.5-36.5); Mean Corpuscular Volume 86 fL (80-100); Mean Platelet Volume 8.9 fL (9.1-12.4); NEUTROPHILS ABSOLUTE AUTO 18.34 K/mm3 (1.96-9.15); NEUTROPHILS PERCENT AUTO 86 % (41-73); Platelet Count 442 K/mm3 (150-400); RDW Coefficient Variation 12.9 % (11.7-14.2); RDW Standard Deviation 40.9 fL (35.1-46.3); Red Blood Cell Count 5.51 M/mm3 (4.30-5.90); White Blood Cell Count 21.36 K/mm3 (4.00-11.30)
[2023-08-13 23:20] LABS: Base Excess Venous -12.1 mmol/L; Bicarbonate Venous 16.9 mmol/L (24.0-30.0); PCO2 Venous 24.8 mmHg (38-42); pH Blood Venous 7.35 (7.34-7.37)
[2023-08-13 23:47] LABS: Beta-hydroxybutyrate 66.1 mg/dL (0.2-2.8)
[2023-08-13 23:49] LABS: Albumin, Blood 4.8 g/dL (3.4-5.0); Albumin/Globulin Ratio 1.3 (0.8-1.8); Calcium, Blood 9.9 mg/dL (8.5-10.1); Creatinine, Blood 0.66 mg/dL (0.60-1.20); Globulin, Blood 3.8 g/dL (2.2-4.0); Potassium, Blood 5.1 mmol/L (3.5-5.5); Total Protein, Blood 8.6 g/dL (6.4-8.2)
[2023-08-14] MEDS ORDERED: Metoclopramide HCl 5MG / ML 2ML Vial IV ONE (00:05)
[2023-08-14] MEDS ORDERED: NS 1,000 ML IV SCH (00:10)
[2023-08-14] MEDS ORDERED: FLU VACC QS2023-24(6MOS UP)/PF 60 MCG/0.5 ML SYRINGE IM ONE (00:30)
[2023-08-14] MEDS ORDERED: Ondansetron HCl 2 MG / ML 2ML Vial IV PRN (00:30)
[2023-08-14] MEDS ORDERED: Metoclopramide HCl 5MG / ML 2ML Vial IV PRN (00:30)
[2023-08-14] MEDS ORDERED: Sodium Bicarb 8.4% Inj 75 MEQ in Sodium Chloride 0.45% 1,000 ML IV SCH (00:35)
[2023-08-14] MEDS ORDERED: Insulin Glargine-Yfgn 100 Unit/mL 3 ML SYR SC ONE (01:00)
[2023-08-14 01:58] VITALS: BP 135/83
[2023-08-14] MEDS ORDERED: Calcium Carbonate 500 MG Tab Chew PO PRN ×2 (02:35→02:40)
[2023-08-14 02:45] LABS: Source, Urine Clean Catch
[2023-08-14 02:54] LABS: Bilirubin, Urine Neg (Neg); Blood, Urine Neg (Neg); Glucose Qualitative, Urine 4+ (Neg); Ketones, Urine 4+ (Neg); Leukocyte Esterase, Urine Neg (Neg); Nitrite, Urine Neg (Neg); Protein, Urine 2+ (Neg); Urobilinogen, Urine NORM (Normal)
[2023-08-14 03:09] LABS: Appearance, Urine Clear (Clear); Color, Urine Yellow (P-Yellow)
[2023-08-14 03:11] LABS: Bacteria Few /hpf; Red Blood Cells, Urine 0-2 /hpf (0-2); Squamous Epithelial Cells Few /hpf (Few); White Blood Cells, Urine 0-2 /hpf (0-5)
[2023-08-14] MEDS ORDERED: Mag Hydrox/AL Hydrox/Simeth 30 ML UDC PO PRN (03:45)
[2023-08-14] MEDS ORDERED: LORazepam 2 MG/ML 1ML Injection IV ONE (04:15)
[2023-08-14 04:32] VITALS: BP 130/79
[2023-08-14 05:09] LABS: Bun/Creatinine Ratio 36.9 (12.0-20.0); Creatinine, Blood 0.6 mg/dL (0.60-1.20); Potassium, Blood 3.8 mmol/L (3.5-5.5)
--- NOTE | 2023-08-14 05:11 | NUR ---
ARRIVAL TO PCU NOTE/SHIFT SUMMARY RECEIVED REPORT FROM AGRICULTURAL SERVICE TECHNICIAN GLORIA HART ~0130, PT SHORTLY ARRIVED TO PCU 10. TRANSFERRED FROM [facility] TO PCU BED WITH MINIMAL ASSISTANCE. A/Ox4 AND COOPERATIVE WITH CARE. ANSWERS QUESTIONS APPROPRIATELY AND ABLE TO MAKE HIS NEEDS KNOWN. REPORTS HX OF ANXIETY WHEN IN THE HOSPITAL. CARDIAC, ARRIVED IN ST RANGING 120-140'S WITH NO REPORTS OF CP OR PRESSURE. DOES REPORT INTERMITTENT HEARTBURN. PRN TUMS WELL MAALOX ORDERED. SBP STABLE RANGING 130'S. RESPIRATORY, MAINTAINS SPO2 >90% ON RA. REPORTS SOME SOB WITH MODERATE EXERTION. GI/, ABLE TO INDEPENDENTLY USE URINAL AT BEDSIDE. INTERMITTENT NAUSEA/VOMITING IN ER PER PT. DENIES NAUSEA AT THIS TIME. ABD SOFT/NON-TENDER TO PALPTATION. REPORTS FEELINGS OF GENERAL WEAKNESS/MALAISE. BiCARB gtt INFUSING ORDERED. SKIN C/D/I WITH NO WOUNDS NOTED. NO NEW ORDERS AT THIS TIME, WILL REPORT TO ONCOMING RN. DIANA DOSHI OF THIS NOTE.
--- NOTE | 2023-08-14 06:26 | NUR ---
UPDATE MORNING GLUCOSE INDICATED 352. DR. GRIFFIN NOTIFIED WITH ORDERS TO RESUME PT'S HOME LONG ACTING INSULIN. NO FURTHER ORDERS AT THIS TIME.
[2023-08-14] MEDS ORDERED: Insulin Glargine-Yfgn 100 Unit/mL 3 ML SYR SC SCH (06:30)
[2023-08-14 07:28] VITALS: BP 139/921
[2023-08-14] MEDS ORDERED: Omeprazole 20 MG CapCR PO SCH (07:30)
[2023-08-14] MEDS ORDERED: Insulin Human Lispro 100 Units/ML 3ML Syringe SC SCH ×3 (07:30→20:00)
--- NOTE | 2023-08-14 08:37 | NUR ---
INITIAL ASSESSMENT: Patient is alert and oriented x4, he is anxious this morning stating, "I should just leave I can take better care of myself at home. I didn't get insulin all night last night. He is complaining about the bed being uncomfortable and the pillow being uncomfortable also, throwing the pillow into the chair. This RN reassured the patient we are starting insulin this morning and we would monitor his blood sugar closely today. He reports some severe heart burn and is actively vomiting at this time. HR is at 115 at rest when he is in discomfort he tachycardic up into the 130s. LS CTA, biox is 100% on RA. BT+, he has nausea and heart burn. His blood suagr this meoning is 384, he was given 20 units of semglee and 10 units of novolog. Labs due again at 1030. Patient deneis other needs at this time. Call light in reach.
[2023-08-14] MEDS ORDERED: Enoxaparin 40 MG/0.4 ML SYR SC SCH (09:00)
[2023-08-14] MEDS ORDERED: LORazepam 2 MG/ML 1ML Injection IV PRN (09:50)
[2023-08-14 11:04] LABS: Bun/Creatinine Ratio 27.1 (12.0-20.0); Creatinine, Blood 0.66 mg/dL (0.60-1.20); Potassium, Blood 3.8 mmol/L (3.5-5.5)
[2023-08-14 12:07] VITALS: BP 124/86
[2023-08-14 17:47] LABS: Albumin, Blood 3.7 g/dL (3.4-5.0); Albumin/Globulin Ratio 1.4 (0.8-1.8); Bilirubin, Total 1.2 mg/dL (0.1-1.0); Bun/Creatinine Ratio 27.8 (12.0-20.0); Calcium, Blood 8.9 mg/dL (8.5-10.1); Creatinine, Blood 0.54 mg/dL (0.60-1.20); Globulin, Blood 2.7 g/dL (2.2-4.0); Potassium, Blood 3.8 mmol/L (3.5-5.5)
[2023-08-14 17:48] LABS: Total Protein, Blood 6.4 g/dL (6.4-8.2)
[2023-08-14 18:04] LABS: BASOPHILS ABSOLUTE AUTO 0.02 K/mm3 (0.00-0.23); BASOPHILS PERCENT AUTO 0 % (0-2); EOSINOPHILS ABSOLUTE AUTO 0.01 K/mm3 (0.00-0.68); EOSINOPHILS PERCENT AUTO 0 % (0-6); Hematocrit 37.6 % (37.0-53.0); IMMATURE GRAN ABSOLUTE AUTO 0.05 K/mm3 (0.00-0.10); IMMATURE GRAN PERCENT AUTO 0 % (0-1); LYMPHOCYTES ABSOLUTE AUTO 1.76 K/mm3 (0.84-5.20); LYMPHOCYTES PERCENT AUTO 13 % (21-46); MONOCYTES PERCENT AUTO 8 % (4-13); Mean Corpuscular HGB 32.6 pg (26.0-34.0); Mean Corpuscular HGB Conc 37.2 g/dL (31.5-36.5); Mean Corpuscular Volume 88 fL (80-100); NEUTROPHILS ABSOLUTE AUTO 10.86 K/mm3 (1.96-9.15); NEUTROPHILS PERCENT AUTO 79 % (41-73); Platelet Count 337 K/mm3 (150-400); RDW Coefficient Variation 13.2 % (11.7-14.2); RDW Standard Deviation 42.4 fL (35.1-46.3); Red Blood Cell Count 4.29 M/mm3 (4.30-5.90)
--- NOTE | 2023-08-14 18:24 | NUR ---
SUMMARY: Patient has been alert and oriented T/O the shift, he has been anxious at times and does not like being in the hospital and may leave AMA this evening, MD is aware and would like the patient to stay overnight if he is willing. His biggest complaint for the shift is the constant heart burn, he has been medicated with Prilosec, Tums, and Maalox with minimal relief. HRR, he has been SR in the 90s at rest, but with activity his heart rate has been up into the 160s. LS CTA, Biox has been 100% on RA. BT+, he did have one episode of emesis this shift, Zofran was given. His blood sugars started int he 300s and are now down into the 170s, he was started on a high S/S and we have been checking his blood sugars now every 4 hours. He is resting comfortably at this time. Will report to oncoming RN.
[2023-08-14 20:19] VITALS: BP 108/72
[2023-08-14] MEDS ORDERED: Melatonin 5 MG Tablet PO PRN (22:00)
[2023-08-14] MEDS ORDERED: Melatonin 5 MG Tablet PO ONE (22:00)
[2023-08-14 22:48] LABS: Bun/Creatinine Ratio 29.5 (12.0-20.0); Calcium, Blood 8.9 mg/dL (8.5-10.1); Creatinine, Blood 0.51 mg/dL (0.60-1.20); Potassium, Blood 3.7 mmol/L (3.5-5.5)
--- NOTE | 2023-08-15 00:50 | NUR ---
PT REFUSED 0000 VITALS. PREFFERED TO CONTINUE TO SLEEP
[2023-08-15] MEDS ORDERED: Mag Hydrox/Al Hydrox/Simeth 18 ML,Lidocaine 2% Viscous Soln 9 ML,Atropine/Scopalam/Hyos... PO ONE (03:20)
[2023-08-15 04:36] VITALS: BP 115/78
--- NOTE | 2023-08-15 04:45 | NUR ---
SHIFT SUMMARY. NO ACUTE CHANGES THIS SHIFT. PT AOX4, PLEASANT, COOPERATIVE WITH CARE, CALLS APPROPRIATELY, ABLE TO MAKE NEEDS KNOWN. PRIMARY GOAL OF SHIFT HAS BEEN HEART BURN MANAGEMENT. ADMINISTERED MAALOX, TUMS TO NO RELIEF AND ATTEMPTED NONPHARMACOLOGICAL MANAGEMENT WELL. EARLY THIS MORNING, NOTIFIED RESIDENT WHO ORDERED ONE GI COCKTAIL. ADMINISTERED ONCE AVAILABLE AND PT HAS BEEN ABLE TO SLEEP SINCE. CBG HAS BEEN MANAGED PER EMAR, ONLY REQUIRING HUMALOG COVERAGE ONCE THUS FAR. VITALS HAVE BEEN STABLE ALTHOUGH PT REFUSED 0000 VITALS OPTING TO REST INSTEAD. TELE ON THROUGHOUT SHIFT WITH NO ACUTE CHANGES OR EVENTS THUS FAR. PT ANTICIPATES DISCHARGE EARLY THIS MORNING. BED LOCKED IN LOWEST POSITION. CALL LIGHT LEFT WITHIN REACH. CONTINUING TO MONITOR.
[2023-08-15 04:57] LABS: BASOPHILS ABSOLUTE AUTO 0.02 K/mm3 (0.00-0.23); BASOPHILS PERCENT AUTO 0 % (0-2); EOSINOPHILS ABSOLUTE AUTO 0.02 K/mm3 (0.00-0.68); EOSINOPHILS PERCENT AUTO 0 % (0-6); Hematocrit 35.5 % (37.0-53.0); Hemoglobin 13.1 g/dL (13.5-17.5); IMMATURE GRAN ABSOLUTE AUTO 0.03 K/mm3 (0.00-0.10); IMMATURE GRAN PERCENT AUTO 0 % (0-1); LYMPHOCYTES ABSOLUTE AUTO 1.79 K/mm3 (0.84-5.20); LYMPHOCYTES PERCENT AUTO 18 % (21-46); MONOCYTES ABSOLUTE AUTO 1.01 K/mm3 (0.16-1.47); MONOCYTES PERCENT AUTO 10 % (4-13); Mean Corpuscular HGB 32.1 pg (26.0-34.0); Mean Corpuscular HGB Conc 36.9 g/dL (31.5-36.5); Mean Corpuscular Volume 87 fL (80-100); Mean Platelet Volume 8.7 fL (9.1-12.4); NEUTROPHILS ABSOLUTE AUTO 7.38 K/mm3 (1.96-9.15); NEUTROPHILS PERCENT AUTO 72 % (41-73); Platelet Count 301 K/mm3 (150-400); RDW Standard Deviation 41.2 fL (35.1-46.3); Red Blood Cell Count 4.08 M/mm3 (4.30-5.90); White Blood Cell Count 10.25 K/mm3 (4.00-11.30)
[2023-08-15 05:05] LABS: Bun/Creatinine Ratio 34.1 (12.0-20.0); Calcium, Blood 8.5 mg/dL (8.5-10.1); Creatinine, Blood 0.47 mg/dL (0.60-1.20); Potassium, Blood 3.8 mmol/L (3.5-5.5)
[2023-08-15] MEDS ORDERED: FAMO20 PO (05:33)
[2023-08-15] MEDS ORDERED: SIME80CH PO (05:33)
== END 2023-08-15 06:15 | disposition home or self-care (01) | DRG 639 ==
LOC: ER 22:21 → PCU 22:22
PROVIDERS: Family Medicine; Student in an Organized Health Care Education/Training Program; ADMIT Internal Medicine
DX: E10.10 Type 1 diabetes mellitus with ketoacidosis without coma (principal); T38.3X6A Underdosing of insulin and oral hypoglycemic [antidiabetic] drugs, initial encounter; K21.9 Gastro-esophageal reflux disease without esophagitis; E86.0 Dehydration; F17.290 Nicotine dependence, other tobacco product, uncomplicated; Z91.138 Patient's unintentional underdosing of medication regimen for other reason; Z79.4 Long term (current) use of insulin
CPT/HCPCS: 36415; 80048; 80053; 81001; 82010; 82803; 82947; 83690; 85025; 93005; 93010; 96361; 96365; 96366; 96374; 96375; 96376; 99285-25; A9270; G0378; J1815; J2060; J2405; J2765; J7030

== ENCOUNTER 2024-09-28 04:45 | Inpatient (IN) | payer BC ==
[~2024-09-28] VITALS: Ht 175.3 cm; Wt 83.0 kg
[~2024-09-28 04:45] MED LIST changes: +FAMO20 PO; +SIME80CH PO
[2024-09-28] MEDS ORDERED: NS 2,000 ML IV ONE (05:00)
[2024-09-28] MEDS ORDERED: Ondansetron HCl 2 MG / ML 2ML Vial IV ONE ×2 (05:15→11:10)
[2024-09-28 05:27] LABS: Hematocrit 51.4 % (37.0-53.0); Mean Corpuscular HGB 34.4 pg (26.0-34.0); Mean Corpuscular Volume 98 fL (80-100); Mean Platelet Volume 8.9 fL (9.1-12.4); Platelet Count 477 K/mm3 (150-400); RDW Standard Deviation 47.4 fL (35.1-46.3); Red Blood Cell Count 5.24 M/mm3 (4.30-5.90); White Blood Cell Count 25.07 K/mm3 (4.00-11.30)
[2024-09-28 05:39] LABS: Magnesium, Blood 2.1 mg/dL (1.6-2.4)
[2024-09-28 05:52] LABS: Base Excess Venous -22.9 mmol/L; Bicarbonate Venous 10.2 mmol/L (24.0-30.0); pH Blood Venous 7.15 (7.34-7.37)
[2024-09-28 05:53] LABS: BAND PERCENT MAN 1 % (0-8); BASOPHILS PERCENT MAN 0 % (0-2); EOSINOPHILS PERCENT MAN 0 % (0-6); LYMPHOCYTES PERCENT MAN 4 % (21-46); MONOCYTES PERCENT MAN 2 % (4-13); NEUTROPHILS ABSOLUTE MAN 23.56 K/mm3 (1.96-9.15); SEG NEUTROPHILS PERCENT MAN 93 % (41-73); TOTAL CELLS COUNTED 100
[2024-09-28 06:03] LABS: Albumin, Blood 4.8 g/dL (3.4-5.0); Albumin/Globulin Ratio 1.1 (0.8-1.8); Bilirubin, Total 1.2 mg/dL (0.1-1.0); Bun/Creatinine Ratio 25.4 (12.0-20.0); Calcium, Blood 9.5 mg/dL (8.5-10.1); Creatinine, Blood 1.22 mg/dL (0.60-1.20); Globulin, Blood 4.3 g/dL (2.2-4.0); Phosphorus, Blood 5.2 mg/dL (2.5-4.9); Potassium, Blood 4.3 mmol/L (3.5-5.5); Total Protein, Blood 9.1 g/dL (6.4-8.2)
[2024-09-28 06:19] LABS: Beta-hydroxybutyrate 87.9 mg/dL (0.2-2.8)
[2024-09-28] MEDS ORDERED: Insulin Human Regular 100 UNIT in NS 100 ML IV SCH (06:20)
[2024-09-28] MEDS ORDERED: NS KCl 20mEq 1,000 ML IV SCH (06:20)
[2024-09-28] MEDS ORDERED: D5W-1/2NS 1,000 ML IV SCH (07:30)
[2024-09-28 07:38] LABS: Source, Urine Clean Catch
[2024-09-28 07:44] LABS: Appearance, Urine Clear (Clear); Bilirubin, Urine Neg (Neg); Blood, Urine 2+ (Neg); Glucose Qualitative, Urine 4+ (Neg); Ketones, Urine 4+ (Neg); Leukocyte Esterase, Urine Neg (Neg); Nitrite, Urine Pos (Neg); Protein, Urine 2+ (Neg); Specific Gravity, Urine 1.025 (1.003-1.022); Urobilinogen, Urine NORM (Normal)
[2024-09-28 07:49] LABS: Color, Urine Pale Yellow (P-Yellow)
[2024-09-28 07:53] LABS: Bacteria Few /hpf; Red Blood Cells, Urine 0-2 /hpf (0-2); Squamous Epithelial Cells Rare /hpf (Few)
[2024-09-28 08:00] LABS: Bun/Creatinine Ratio 29.7 (12.0-20.0); Calcium, Blood 8.1 mg/dL (8.5-10.1); Creatinine, Blood 0.84 mg/dL (0.60-1.20)
[2024-09-28] MEDS ORDERED: Enoxaparin 40 MG/0.4 ML SYR SC SCH (09:00)
[2024-09-28] MEDS ORDERED: Pantoprazole Sodium 40 MG Injection IV ONE (11:10)
[2024-09-28 11:51] LABS: Bun/Creatinine Ratio 31.4 (12.0-20.0); Calcium, Blood 7.9 mg/dL (8.5-10.1); Creatinine, Blood 0.7 mg/dL (0.60-1.20); Potassium, Blood 3.6 mmol/L (3.5-5.5)
[2024-09-28] MEDS ORDERED: Calcium Carbonate 500 MG Tab Chew PO PRN (12:35)
[2024-09-28] MEDS ORDERED: Potassium Chloride 40 MEQ in NS 250 ML IV ONE ×2 (13:10→19:55)
[2024-09-28 16:26] LABS: Bun/Creatinine Ratio 26.5 (12.0-20.0); Calcium, Blood 8.2 mg/dL (8.5-10.1); Creatinine, Blood 0.57 mg/dL (0.60-1.20); Potassium, Blood 3.7 mmol/L (3.5-5.5)
[2024-09-28] MEDS ORDERED: Ondansetron HCl 2 MG / ML 2ML Vial ONE (16:28)
--- NOTE | 2024-09-28 16:30 | NUR ---
ASSUMPTION OF CARE PT TO ICU 6 AT THIS TIME. PT ABLE TO TRANSFER SELF TO ICU BED WITH STEADY GAIT. HE IS RECEIVING INSULIN 3.4UNITS/HR AND D5 1/2NS 200ML/HR. KCL INFUSING. PT C/O NAUSEA AND "STOMACH ACID", REQUESTS EMESIS BAG. PT DRY HEAVING CLEAR SPUTUM. PT MEDICATED PER EMAR. SINUS ON MONITOR WITH RATE IN 80S. MAP >65. LUNGS CLEAR. ON RA WITH SPO2 100%. DENIES SOB. PT PROVIDED WARM BLANKETS. BED IN LOW POSITION, CALL LIGHT WITHIN REACH.
[2024-09-28] MEDS ORDERED: Ondansetron HCl 2 MG / ML 2ML Vial IV PRN (16:35)
[2024-09-28 17:01] VITALS: BP 127/95
[2024-09-28] MEDS ORDERED: Prochlorperazine Edisylate 10 mg Vial IV PRN (18:30)
[2024-09-28] MEDS ORDERED: LORazepam 0.5 MG Tab PO PRN (18:35)
--- NOTE | 2024-09-28 18:47 | NUR ---
UPDATE PT CONTINUES TO C/O NAUSEA, ANXIETY AND RESTLESSNESS. PT CONTINUOUSLY SPITTING CLEAR SPUTUM INTO EMESIS BAG. PROVIDED YANKEUR. PROVIDER NOTIFIED, ORDERS RECEIVED AND PT MEDICATED PER EMAR. LAB CURRENTLY AT BEDSIDE FOR BLOOD DRAW.
[2024-09-28 19:33] LABS: Bun/Creatinine Ratio 24.2 (12.0-20.0); Calcium, Blood 8.1 mg/dL (8.5-10.1); Creatinine, Blood 0.58 mg/dL (0.60-1.20)
[2024-09-28 19:42] VITALS: BP 129/83
[2024-09-28 20:00] VITALS: BP 118/80
[2024-09-28 21:00] VITALS: BP 128/95
[2024-09-28 22:00] VITALS: BP 116/78
[2024-09-28 22:54] LABS: Bun/Creatinine Ratio 19.6 (12.0-20.0); Creatinine, Blood 0.51 mg/dL (0.60-1.20); Potassium, Blood 3.1 mmol/L (3.5-5.5)
[2024-09-28 23:00] VITALS: BP 106/66
[2024-09-29] VITALS (10 sets, daily range): BP systolic 90–147; BP diastolic 60–92
[2024-09-29 02:35] LABS: BASOPHILS ABSOLUTE AUTO 0.02 K/mm3 (0.00-0.23); BASOPHILS PERCENT AUTO 0 % (0-2); EOSINOPHILS ABSOLUTE AUTO 0.01 K/mm3 (0.00-0.68); EOSINOPHILS PERCENT AUTO 0 % (0-6); Hematocrit 35.5 % (37.0-53.0); Hemoglobin 12.6 g/dL (13.5-17.5); IMMATURE GRAN ABSOLUTE AUTO 0.07 K/mm3 (0.00-0.10); IMMATURE GRAN PERCENT AUTO 1 % (0-1); LYMPHOCYTES ABSOLUTE AUTO 1.95 K/mm3 (0.84-5.20); LYMPHOCYTES PERCENT AUTO 15 % (21-46); MONOCYTES ABSOLUTE AUTO 1.24 K/mm3 (0.16-1.47); MONOCYTES PERCENT AUTO 9 % (4-13); Mean Corpuscular HGB 33.9 pg (26.0-34.0); Mean Corpuscular HGB Conc 35.5 g/dL (31.5-36.5); Mean Corpuscular Volume 95 fL (80-100); Mean Platelet Volume 8.6 fL (9.1-12.4); NEUTROPHILS ABSOLUTE AUTO 10.16 K/mm3 (1.96-9.15); NEUTROPHILS PERCENT AUTO 76 % (41-73); Platelet Count 283 K/mm3 (150-400); RDW Coefficient Variation 12.6 % (11.7-14.2); Red Blood Cell Count 3.72 M/mm3 (4.30-5.90); White Blood Cell Count 13.45 K/mm3 (4.00-11.30)
[2024-09-29 03:25] LABS: Albumin, Blood 3.4 g/dL (3.4-5.0); Albumin/Globulin Ratio 1.3 (0.8-1.8); Calcium, Blood 8.3 mg/dL (8.5-10.1); Creatinine, Blood 0.62 mg/dL (0.60-1.20); Globulin, Blood 2.6 g/dL (2.2-4.0); Potassium, Blood 3.3 mmol/L (3.5-5.5)
[2024-09-29] MEDS ORDERED: Omeprazole 20 MG CapCR PO SCH (06:00)
--- NOTE | 2024-09-29 06:38 | NUR ---
PT VITAL SIGNS STABLE THROUGHOUT THE SHIFT. PT C/O NAUSEA AND "BURNING IN MY STOMACH". PT WAS MEDICATED FOR NAUSEA AND ACID REFLUX, SEE EMAR. BLOOD SUGAR IMPROVED ON INSULIN INFUSION, GAP CLOSED. PT HAD GOOD URINARY OUTPUT THROUGHOUT THE SHIFT. POTASSIUM REPLETION DONE BY IV THOUGH IT HAD TO BE RUN AT A REDUCED RATE D/T C/O OF BURNING BY PT. PT AOX4, IND WITH URINAL AT BEDSIDE. PT USES CALL LIGHT APPROPRIATELY AND ABLE TO MAKE NEEDS KNOWN. PT CALM AND COOPERATIVE. BED IN LOWEST POSITION WITH BRAKE ON AND UPPER SIDE RAILS UP. PT CONTINUES TO C/O "SLIME IN THE BACK OF MY THROAT" AND FREQUENTLY SPITS INTO EMESIS BAG.
--- NOTE | 2024-09-29 06:43 | NUR ---
Q1 HOUR CBG CHECKS CONTINUE. PT IS HOPING TO LEAVE TODAY.
[2024-09-29 07:05] LABS: Bun/Creatinine Ratio 10.5 (12.0-20.0); Calcium, Blood 8.5 mg/dL (8.5-10.1); Creatinine, Blood 0.57 mg/dL (0.60-1.20); Potassium, Blood 3.5 mmol/L (3.5-5.5)
[2024-09-29 09:09] LABS: Influenza A, PCR NEGATIVE (NEGATIVE); Influenza B, PCR NEGATIVE (NEGATIVE); Resp Syncytial Virus, PCR NEGATIVE (NEGATIVE); SARS-Cov-2 (COVID-19) PCR, MMC NEGATIVE (NEGATIVE)
[2024-09-29 11:14] LABS: Bun/Creatinine Ratio 12.3 (12.0-20.0); Calcium, Blood 8.2 mg/dL (8.5-10.1); Creatinine, Blood 0.49 mg/dL (0.60-1.20); Potassium, Blood 3.2 mmol/L (3.5-5.5)
[2024-09-29] MEDS ORDERED: Potassium Chloride 20 MEQ TabCR PO SCH (12:00)
[2024-09-29 15:10] LABS: Bun/Creatinine Ratio 10.7 (12.0-20.0); Calcium, Blood 8.4 mg/dL (8.5-10.1); Creatinine, Blood 0.47 mg/dL (0.60-1.20); Potassium, Blood 3.3 mmol/L (3.5-5.5)
[2024-09-29] MEDS ORDERED: Insulin Glargine-Yfgn 100 Unit/mL 3 ML SYR SC SCH (16:00)
[2024-09-29] MEDS ORDERED: Insulin Human Lispro 100 Units/ML 3ML Syringe SC SCH (16:30)
--- NOTE | 2024-09-29 16:43 | NUR ---
AMA PT STATING HE IS GOING TO LEAVE AMA ONCE THE INSULIN GTT IS OFF SINCE THIS MORNING. [address] ESTRADA AND ORDERS RECIEVED TO TRANSITION OFF INSULIN GTT. PT RECIEVED LANTUS SC AND HUMALOG SC PER EMAR. INSULIN GTT STOPPED AND IV'S PULLED. PT DRESSED SELF AND STATED HE WANTS TO LEAVE. PT SIGNED AMA PAPERWORK AND PT WALKED OUT OF THE ICU INDEPENDENTLY AT 1640. ALL BELONGINGS TAKEN WITH PT. DR ESTRADA NOTIFIED.
[2024-09-29] MEDS ORDERED: Potassium Chloride 20 MEQ TabCR PO ONE (17:00)
== END 2024-09-29 17:01 | disposition left against medical advice (07) | DRG 638 ==
LOC: ER 04:45 → ERHOLD 07:31 → ICUE 07:31
PROVIDERS: Student in an Organized Health Care Education/Training Program; ADMIT Internal Medicine
DX: E10.10 Type 1 diabetes mellitus with ketoacidosis without coma (principal); E87.1 Hypo-osmolality and hyponatremia; N17.9 Acute kidney failure, unspecified; F12.10 Cannabis abuse, uncomplicated; E83.39 Other disorders of phosphorus metabolism; Z53.29 Procedure and treatment not carried out because of patient's decision for other reasons; D72.829 Elevated white blood cell count, unspecified; K21.9 Gastro-esophageal reflux disease without esophagitis; F10.90 Alcohol use, unspecified, uncomplicated; F17.290 Nicotine dependence, other tobacco product, uncomplicated; E80.6 Other disorders of bilirubin metabolism; R74.01 Elevation of levels of liver transaminase levels; E87.6 Hypokalemia; Z79.4 Long term (current) use of insulin; Z79.85 Long-term (current) use of injectable non-insulin antidiabetic drugs; Z79.899 Other long term (current) drug therapy
CPT/HCPCS: 0241U; 36415; 71045; 76700; 80048; 80053; 81001; 82010; 82803; 82947; 83735; 84100; 85025; 87086; 93005; 93010; 96361; 96374; 99285-25; A9270; J0780; J1815; J2405; J2470; J3480; J7030; J7042; J7050